=== PATIENT | female | born 1965 | race Caucasian/White ===

== ENCOUNTER 2021-03-22 14:18 | Outpatient (NON) | payer OTHER, SELFPAY ==
[2021-03-22 14:34] LABS: Add Urine Microscopic? YES; Appearance Urine Cloudy (Clear); Bilirubin Urine Negative (Negative); Blood Urine 1+ (Negative); Color Urine Light Yellow (Yellow); Glucose Urine UA Negative (Negative); Ketones Urine Trace (Negative); Leukocyte Esterase Ur 2+ LEU/UL (Negative); Nitrate Urine Negative (Negative); Protein Urine 1+ (Negative); Specific Grav Ur >= 1.030 (1.010-1.020); Urobilinogen Urine 0.2 mg/dL (0.2-1.0); pH Urine 5.5 (5.0-8.0)
[2021-03-22 14:37] LABS: Bacteria Urine 1+ /hpf; RBC Urine None seen /hpf (0-2); Renal Epithelial Cells Urine Few /hpf; Squamous Epithelial Cell Urine Few /hpf (Few); WBC Urine >75 /hpf (0-3)
== END 2021-03-22 14:19 | disposition home or self-care (01) ==
LOC: CHSHH 14:22
PROVIDERS: Visit Provider Internal Medicine
DX: G91.2 (Idiopathic) normal pressure hydrocephalus (principal); E11.9 Type 2 diabetes mellitus without complications; I82.412 Acute embolism and thrombosis of left femoral vein; G40.909 Epilepsy, unspecified, not intractable, without status epilepticus; R82.90 Unspecified abnormal findings in urine
CPT/HCPCS: 81001; 87086

== ENCOUNTER 2021-03-27 13:03 | Outpatient (NON) | payer OTHER, SELFPAY | END 2021-03-27 13:04 | disposition home or self-care (01) | PROVIDERS: Visit Provider Internal Medicine | DX: G91.2 (Idiopathic) normal pressure hydrocephalus (principal); E11.9 Type 2 diabetes mellitus without complications; I82.412 Acute embolism and thrombosis of left femoral vein; G40.909 Epilepsy, unspecified, not intractable, without status epilepticus | CPT/HCPCS: 87077; 87086; 87088; 87186 ==

== ENCOUNTER 2022-05-07 21:36 | Emergency (ER) | payer OTHER, SELFPAY ==
--- NOTE | ~2022-05-07 | CT_ITS ---
EXAMINATION: CT abdomen pelvis wo con DATE: 05/07/2022 23:36 INDICATION: Bladder fistula. Dysuria. TECHNIQUE: Computed tomography (CT) of the abdomen and pelvis was performed without intravenous contr ast. Automated exposure control and iterative reconstruction technique were employed. The dose-length product was 1629.90 mGy-cm. COMPARISON: None. FINDINGS: The visualized portions of the lung bases demonstrate mild atelectasis. No pleural effusion . There is left atrial and left ventricular enlargement of the heart. No pericardial effusion. There is diffuse hepatic steatosis. There are changes of cholecystectomy. The spleen, pancreas, and adrenal glands are normal. The kidneys are normal. There is a filter in the infrarenal inferior vena cava. T here is gas in the bladder lumen. Bladder wall thickening is noted. There are no dilated loops of bow el. The appendix is normal. There is mild bilateral common iliac and right external iliac lymphadenop athy. For example, a right external iliac node measures 19 x 12 mm. There is no free intraperitoneal fluid. There is severe lumbar spondylosis. There is a hemangioma in T3 vertebral body. IMPRESSION: 1. Bladder wall thickening, consistent with cystitis. 2. Gas in the bladder lumen, which may be secondary to recent instrumentation. No fistula identified. 3. Mild pelvic lymphadenopathy, likely reactive. Reviewed, dictated and finalized at location A.
[2022-05-07 21:22] VITALS: BP 167/81; PULSE 87; RESP 16; TEMP 36.8; O2SAT 97
--- NOTE | 2022-05-07 22:56 | ED.GENADULT ---
HPI - General Adult General Chief complaint: Urogenital-Female Stated complaint: UTI s/s History of Present Illness HPI narrative: A 57-year-old female who is bed-bound due to history of hydrocephalus presenting to ED with urinary complaints. Patient says for the last week she has had dysuria, hematuria, and bubbles in her urine. She has also had fevers and body aches. Patient has a history of recurrent UTIs. Denies chest pain difficulty breathing, nausea vomiting or diarrhea. Patient typically uses a diaper. Related Data Allergies Allergy/AdvReac Type Severity Reaction Status Date / Time No Known Allergies Allergy Verified 05/07/22 22:06 Review of Systems Review of Systems: CONSTITUTIONAL: Denies night sweats. EYES: No eye pain ENT: Denies rhinorrhea CARDIOVASCULAR: Denies palpitations RESPIRATORY: Denies hemoptysis GASTROINTESTINAL: Denies hematemesis GENITOURINARY: Denies hematuria. SKIN: Denies rash MUSCULOSKELETAL: Denies myalgia. NEUROLOGIC: Denies weakness. 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 Patient appears far older than her stated age Head atraumatic. EYES: R eye enucleation NOSE: Normal no drainage NECK: Supple, Trachea midline RESPIRATORY: CTAB, No increased work of breathing. CARDIOVASCULAR: S1S2 appreciated ABDOMINAL: abdomen is obese, nontender with no guarding or rebound MUSCULOSKELETAl: No obvious deformities NEURO: Alert. Moving 4/4 extremities SKIN:: is warm dry and pale. She has multiple uninfected cat scratches over her lower extremities. PSYCHIATRIC: Normal affect Course Vital Signs Vital signs: Vital Signs Temperature 98.2 F 05/07/22 21: Pulse Rate 87 05/07/22 21:22 Respiratory Rate 16 05/07/22 21:22 Blood Pressure 167/81 H 05/07/22 21:22 Pulse Oximetry 97 05/07/22 21:22 Oxygen Delivery Room Air 05/07/22 21:22 Temperature 98.2 F 05/07/22 21:22 Pulse Rate 87 05/07/22 21:22 Respiratory Rate 16 05/07/22 21:22 Blood Pressure 167/81 H 05/07/22 21:22 Pulse Oximetry 97 05/07/22 21:22 Oxygen Delivery Room Air 05/07/22 21:22 Medical Decision Making MDM Narrative Medical decision making narrative: 57-year-old bed-bound woman presenting ED with urinary symptoms. CT abdomen pelvis was ordered to evaluate for a vesicular fistula she has reports having air bubbles in her urine. CT showed thickening of her bladder but no evidence of fistula. Urinalysis was indicative of UTI. Rest the patient's lab work was within acceptable limits. Patient has excellent support at home from her who takes care of her multimedia assistant. They are comfortable going home with antibiotics and returning if her condition is worsening. Patient will be discharged with Keflex and PCP follow up. Vital Signs Vital Signs: Vital Signs Temperature 98.2 F 05/07/22 21:22 Pulse Rate 87 05/07/22 21:22 Respiratory Rate 16 05/07/22 21:22 Blood Pressure 167/81 H 05/07/22 21:22 Pulse Oximetry 97 05/07/22 21:22 Oxygen Delivery Room Air 05/07/22 21:22 Temperature 98.2 F 05/07/22 21:22 Pulse Rate 87 05/07/22 21:22 Respiratory Rate 16 05/07/22 21:22 Blood Pressure 167/81 H 05/07/22 21:22 Pulse Oximetry 97 05/07/22 21:22 Oxygen Delivery Room Air 05/07/22 21:22 Lab Data Result diagrams: 05/07/22 23:42 05/07/22 23:42 Labs: Lab Results 05/07/22 05/07/22 05/07/22 Range/Units 23:23 23:42 23:42 WBC 6.8 (4.5-10.0) K/mm3 RBC 4.59 (4.2-5.4) M/mm3 Hgb 12.1 (12.0-15.0) g/dL Hct 38.7 (37.0-47.0) % MCV 84.3 (80-100) fl
[2022-05-07 23:26] LABS: Glucose Point of Care 342 mg/dl (65-105)
[2022-05-08 00:24] LABS: Basophils Absolute Auto 0.1 K/mm3 (0.0-0.1); Eosinophils Absolute Auto 0.7 K/mm3 (0-0.3); Eosinophils Percent Auto 9.6 % (0-4.4); Hematocrit 38.7 % (37.0-47.0); Hemoglobin 12.1 g/dL (12.0-15.0); Immature Granulocyte Absolute 0.04 K/mm3 (0.00-0.031); Immature Granulocyte Percent A 0.6 % (0-0.5); Lymphocytes Absolute Auto 2.07 K/mm3 (0.9-3.2); Lymphocytes Percent Auto 30.6 % (18.3-44.2); Mean Corpuscular HGB Conc 31.3 g/dl (32-36); Mean Corpuscular Hemoglobin 26.4 pg (26-34); Mean Corpuscular Volume 84.3 fl (80-100); Mean Platelet Volume 10.4 fl (7.4-10.4); Monocytes Absolute Auto 0.8 K/mm3 (0.1-0.6); Monocytes Percent Auto 11.1 % (2.6-8.5); Neutrophils Absolute Auto 3.2 K/mm3 (1.3-6.7); Neutrophils Percent Auto 47.1 % (45.5-73.1); Platelet Count Result 289 k/mm3 (150-375); Red Blood Count 4.59 M/mm3 (4.2-5.4); Red Cell Distribution Width 14.8 % (11.5-14.5); White Blood Count 6.8 K/mm3 (4.5-10.0)
[2022-05-08 00:27] LABS: Lactic Acid Reflex 2.1 mmol/L (0.7-2.0)
[2022-05-08 00:28] LABS: Anion Gap 9 mmol/L (8-16); Blood Urea Nitrogen 22 mg/dL (7-17); Calcium 9.8 mg/dL (8.4-10.2); Carbon Dioxide 28 mmol/L (22-30); Chloride 97 mmol/L (98-107); Estimated CRCL calculation 95 ml/min; Estimated Glomerular Filt Rate > 60; Glucose 348 mg/dL (65-110); Potassium 4.9 mmol/L (3.4-5.0); Sodium 134 mmol/L (137-145)
[2022-05-08 00:53] LABS: Appearance Urine Clear (Clear); Bilirubin Urine Negative (Negative); Blood Urine 2+ (Negative); Color Urine Yellow (Yellow); Glucose Urine UA 3+ mg/dL (Negative); Ketones Urine Negative (Negative); Leukocyte Esterase Ur 1+ LEU/UL (Negative); Nitrate Urine Positive (Negative); Protein Urine 2+ mg/dL (Negative); Urobilinogen Urine 0.2 mg/dL (<2.0)
[2022-05-08 00:58] LABS: Squamous Epithelial Cell Urine Rare /hpf (Few); WBC Urine 31-50 /hpf
[2022-05-08 01:04] LABS: Add Urine Microscopic? YES
[2022-05-08] MEDS: CEPHALEXIN 500 MG CAPSULE PO (01:53)
[2022-05-08] MEDS: SODIUM CHLORIDE 0.9% IV 1,000 ML 999 ML IV CONT (02:00)
[2022-05-08 02:33] VITALS: BP 164/80; PULSE 84; RESP 16; O2SAT 97
[2022-05-08 03:16] LABS: Reflex Lactic Acid Yes or No Add Lactic
== END 2022-05-08 02:33 | disposition home or self-care (01) ==
PROVIDERS: Emergency Provider Emergency Medicine; PCP Internal Medicine
DX: N39.0 Urinary tract infection, site not specified (principal); G91.9 Hydrocephalus, unspecified; G40.909 Epilepsy, unspecified, not intractable, without status epilepticus; E11.9 Type 2 diabetes mellitus without complications; Z98.2 Presence of cerebrospinal fluid drainage device
CPT/HCPCS: 36415; 51701; 74176; 80048; 81001; 82948; 83605; 85025; 87077; 87086; 87088; 87186; 96360; 99284; A9270; J7030

== ENCOUNTER 2025-05-31 15:19 | Outpatient (NON) | payer OTHER, SELFPAY ==
[2025-05-31 15:27] LABS: Hematocrit 34.7 % (35.0-49.0); Hemoglobin 10.6 g/dL (12.0-15.0); Mean Corpuscular HGB Conc 30.5 g/dL (32-36); Mean Corpuscular Hemoglobin 28.7 pg (27.0-31.0); Mean Corpuscular Volume 94.0 fL (78.0-102.0); Platelet Count Result 347 K/mm3 (150-420); Red Blood Count 3.69 M/mm3 (4.20-5.40); White Blood Count 9.3 K/mm3 (4.8-10.8)
[2025-05-31 15:36] LABS: Hemoglobin A1C 8.0 % (<5.7)
[2025-05-31 15:55] LABS: Appearance Urine Cloudy (Clear); Glucose Urine UA Negative (Negative); Nitrate Urine Positive (Negative); Specific Grav Ur 1.005 (1.010-1.020)
[2025-05-31 15:56] LABS: Add Urine Microscopic? YES; Leukocyte Esterase Ur 3+ (Negative)
--- OUTSIDE RECORDS SUMMARY | 2025-05-31 16:03 | XMS_ITS | Encounter Summary ---
Author Organization [facility] Address [address] [place] [address] Care Team Providers Care Email Marketing Coordinator Name Role Phone Kulwinder Jackson MD Primary Care Provider [phone] Encounter Details Date Type Department Care Team (Late st Contact Info) Description 02/14/2025 Telephone [facility] - Urology [address] [place] [address], [facility] [place] [address] Lindsey Amaro DO [address] [place] [address] [place] [address] Social History Tobacco Use Types Packs/Day Years Used Date Smoking Tobacco: Former Smokeless Tobacco: Never Alcohol Use Standard Drinks/Week Comments No 0 (1 standard drink = 0.6 oz pur e alcohol) Comments Unknown Sex and Gender Information Value Date Recorded Sex Assigned at Not on file Legal Sex Female 5:33 PM WEAVER NEEDLE LOOM Gender Identity Not on file Sexual Orientation Not on file documented as of this encounter Miscellaneous Notes * Telephone Encounter - Joyce Harrington RN - 02/14/2025 3:01 PM CDT Called back. No answer. This patient was never seen by [facility] Urology. * Telephone Encounter - Rena Pittman - 02/14/2025 2:44 PM CDT Current Provider: Dr Amaro Reason for Call: Pt called said pt needs a cath change been in since 01/26, please advise. Patient Call Back Number: [phone] documented in this encounter Plan of Treatment Upcoming Encounters Date Type Department Care Team (Late st Contact Info) Description 06/14/2025 9:00 AM CDT Office Visit [facility] - Urology [address] [facility], [place] [address] Lindsey Amaro M, [address] [facility] [address]L [place] [phone] documented as of this encounter Visit Diagnoses Not on filedocumented in this encounter Care Teams Email Marketing Coordinator Relationship Specialty Start Date End Date Kulwinder Jackson MD [address] [place] [address] PCP - General 10/21/17 documented as of this encounter
--- OUTSIDE RECORDS SUMMARY | 2025-05-31 16:03 | XMS_ITS | Encounter Summary ---
Author Organization [facility] Address [address] [place] [address] Phone Care Team Providers Care Mixing Machine Attendant Name Role Phone Kulwinder Soto MD Primary Care Provider [phone] Encounter Details Date Type Department Care Team (Late st Contact Info) Description 02/15/2024 Nursing Facility [facility] [address] [place] [phone] Andrea Mai PAC [address] [place], [place] [id number] Social History Tobacco Use Types Packs/Day Years Used Date Smoking Tobacco: Former Smokeless Tobacco: Never Alcohol Use Standard Drinks/Week Comments No 0 (1 standard drink = 0.6 oz pur e alcohol) Comments No Sex and Gender Information Value Date Recorded Sex Assigned at Not on file Legal Sex Female 12:03 AM CDT Gender Identity Not on file Sexual Orientation Not on file documented as of this encounter Progress Notes * Andrea Mai PAC - 02/15/2024 2:57 PM CDT [facility] DISCHARGE SUMMARY Name: Opal Gardiner Age: 58 y.o. : 1965 Attending Physician: No att. providers found Admission Date/Time: 01/20/2024 Expected Discharge Date: 02/16/2024 Primary Care Physician: KULWINDER SOTO MD Discharging Provider: HI Carver INSTRUCTIONS FOR PHYSICIANS ON FOLLOW UP AFTER DISCHARGE: Follow-up with PCP in 1-2 weeks. Due to insurance reasons her Eliquis had to be switched to warfarin, INR level is therapeutic today, will need to be monitored closely. Keep follow-up appointment with Neuro on February 17. Discharge Instructions: Discharge Condition: not changed Disposition: Home Diet: Cardiac Diet and Diabetic Diet Activity: activity as tolerated Discharge Diagnoses: Generalized weakness and deconditioning, history of normal pressure hydrocephalus, paroxysmal atrial fibrillation, insulin-dependent diabetes mellitus, hypertension, hyperlipidemia, depression, anxiety, seizure disorder, GERD, peripheral neuropathy Admitting Diagnoses: Generalized weakness and deconditioning, history of normal pressure hydrocephalus, paroxysmal atrial fibrillation, insulin-dependent diabetes mellitus, hypertension, hyperlipidemia, depression, anxiety, seizure disorder, GERD, peripheral neuropathy SKILLED CARE COURSE: [facility]al Gardiner [facility]. Prior to coming to rehabilitation facility patient was hospitalized at [facility] from 01/14/2024 through 01/20/2024 due to a gradual overall declining that have been going on for several monthsand concerns for VAS malfunction. She came to the rehabilitation facility for long-term care rather than skilled care. The isher primary care your and felt that she was too high of the level of care for him at home. Now he feels like he can provide enough care for home and wants to take her home tomorrow. Patient is lying comfortably in bed at this time. She denies any acute symptoms or concerns. Her stay in the facility was relatively short and mostly uncomplicated. Due to insurance reasons her Eliquis had to be switched to warfarin, INR is therapeutic and was checked this morning. Patient and understand that the INR level will need to be monitored closely by her PCP as her currentwarfarin dose may need to be adjusted, especially considering the fact that her diet will likely bedifferent when she gets home. Exam Day of Discharge: Vital Signs: Recent vital signs were reviewed in the electronic medical records at nursing facility and are unremarkable. General: Well developed, well nourished, in no distress, obese Skin: Normal appearance, normal turgor, no rashes HEENT: Normocephalic, atraumatic, no flaring Eyes: Right eye prosthesis. Left eye: nonicteric, intact extra occular movement, pupil is round andreactive Neck: normal, supple, no lymphadenopathy Heart: regular rate and rhythm, S1, S2 normal, no murmur, click, rub or gallop Lungs: clear to ausculation, normal respirations with no accessory muscle use, normal rate Abdominal: soft, non-tender; bowel sounds normal; no masses, no organomegaly Extremities: no deformities, joint mobility appears intact, no clubbing Neuro: Non-focal, CN intact, sensory and motor intact Psychological: alert and oriented X1, appropriate mood and affect, Intact judgement and memory Lab / Imaging Review: Lab Results: 01/18/2024 while in the hospital, CMP with glucose 261, calcium 11.0, albumin 3.1, alk-phos 132. CBC with hemoglobin 11.5 otherwise unremarkable. 02/15/2024: INR at 2.1 Imaging: None DISCHARGE PLAN: Patient will be going home tomorrow, she lives with her who is her caregiver. No new DME isneeded and they politely declined home health. Understands to continue all current medications as directed and follow up with PCP in 1-2 weeks. She is to keep her follow-up appointment with neuro surgery without fail. I have spent time coordinating care for this [facility] facility discharge: Greater than 30 minutes spent in coordinating care This note was dictated using [employer] It fluency dictation system and there may be errors in labor conciliator. Despite proof reading the note, there may be mistakes and I apologize for those. Signed: HI Carver, 02/15/2024, 2:59 PM CDT documented in this encounter Plan of Treatment Not on file documented as of this encounter Visit Diagnoses Not on filedocumented in this encounter Care Teams Mixing Machine Attendant Relationship Specialty Start Date End Date Kulwinder Soto MD [address] [place] [place] [id number] PCP - General Internal Medicine 1/28/18 documented as of this encounter
--- OUTSIDE RECORDS SUMMARY | 2025-05-31 16:03 | XMS_ITS | Encounter Summary ---
Author Organization [facility] Address [address] [facility] [place] [address] Phone Care Team Providers Care Robotic Machine Operator Name Role Phone Kulwinder Soto MD Primary Care Provider [phone] Encounter Details Date Type Department Care Team (Late st Contact Info) Description 01/22/[address] [facility] [address] [place] [phone] Kassidy Mackey MD [address] [place] [address] Social History Tobacco Use Types Packs/Day Years [...] on file documented as of this encounter H&P Notes * Matheus Treadwell - 01/22/2024 11:59 PM CDT .[facility] History and Physical Chief Complaint: worsening generalized weakness and declining cognition HPI: Opal Gardiner is a 58 y.o. female who has transferred to [facility] for post-acute care and rehabilitation. Prior to coming to rehabilitation facility patient was hospitalized at [facility] from 01/14/2024 through 01/20/2024 due to a gradual overall declining that have been going on for several months and concerns for VAS malfunction. She has a past medical history of NPH s/p R ventriculoatrial shunt placement (Paulo, 01/2021, Certas @7), longstanding history of epilepsy, T2DM, morbid obesity, and chronic anemia. The patient has been wheelchair bound since shunt placementin 2020. Pt's reached out to Dr. Bates's office in October 2023 due to declining cognitive and functional status and review of her head CT had low concern for shunt malfunction at that time. Shortly after, the patient's noticed worsening symptoms and new urinary incontinence and brought her to the hospital as he felt he could not continue providing her care at home. Head CT at hospital showed shunt was stable and did not have any new significant findings. Shunt pumped multiple times during hospitalization and settings adjusted. At the time of this assessment, the patient did not have any complaints. History obtained from: patient, medical records. Patient has cognitive impairment which limits HPI Review of External Records: [facility] records Allergies: has No Known Allergies. Past Medical History: She has a past medical history of Depression, Diabetes mellitus (HCC), Epilepsy (HCC), Hypertension, and TIA (transient ischemic attack). Surgical History: has a past surgical history that includes Dilation And Curettage of Uterus; Cholecystectomy, Laparoscopic; and Eye Surgery. Social History: reports that she has quit smoking. She has never used smokeless tobacco. She reports that she does not drink alcohol and does not use drugs. Physical Exam: Vital Signs: All vitals were reviewed in the facility EMR and are stable. Exam: General: Well developed, well nourished, in no distress, morbidly obese Skin: Normal appearance, normal turgor, no rashes, onychomycosis of both greater toes, psoriasis ofscalp HEENT: Normocephalic, atraumatic, no flaring Eyes: nonicteric, intact extra ocular movement, PERRL Neck: normal, supple, no lymphadenopathy Heart: regular rate and rhythm, S1, S2 normal, no murmur, click, rub or gallop Lungs: clear to auscultation, normal respirations, normal precautions Abdominal: soft, non-tender; bowel sounds normal; no masses, no organomegaly : external genitalia normal in appearance Extremities: no deformities, joint mobility appears intact, no clubbing Neuro: Non-focal, CN intact, sensory and motor intact, cogwheel rigidity in BLE, right-sided weakness, LUE tremors Psychological: alert and oriented X2, appropriate mood and affect, Intact judgement and memory Data Review: Lab Results: 01/18/2024 while in the hospital, CMP with glucose 261, calcium 11.0, albumin 3.1, alk-phos 132. CBC with hemoglobin 11.5 otherwise unremarkable. Imaging: No new imaging. Orders: - Referred to neurology for suspected Parkinson's disease evaluation Assessment/Plan: Generalized weakness and deconditioning Has been wheelchair-bound since 2020 Receiving long term care and physical therapy rehabilitation History of normal pressure hydrocephalus VAS Shunt in place Recently changed settings during hospitalization, has follow-up with neuro surgery in February Suspected Parkinson's disease Tremors and cogwheel rigidity noted during physical exam Neurology referral being arranged by SNF Paroxysmal atrial fibrillation Anticoagulated with Eliquis Rate control with Coreg Currently in normal sinus rhythm Insulin-dependent diabetes mellitus Continue basal and bolus insulin therapy Monitor Accu-Cheks Hypertension Continue her furosemide, carvedilol Monitor blood pressures Stable VTE Prophylaxis: Patient is on oral anticoagulation with Eliquis. Fall Care Plan Review: Patient has been educated on fall precautions and will be closely monitored. Pressure Ulcer Prevention Plan: Mobilization. Disposition and escalation or reduction of care: The patient is to receive post- acute care and complete PT and OT at the SNF to improve strength, balance, and mobility back to baseline with the goal of discharging to home where she lives with her . Advance Care Planning: Aggregate [id number] time, greater than 16 minutes was spent discussing end-of-life care planning with patient/family and/or Power of Special Education Superintendent. Discussed CPR, Intubation, treatment goals, and Quality of life/Intensity of care. Patient desires CPR-Full Treatment Polst Form Completed. I, Matheus Treadwell, acting as a scribe, am personally taking down the notes in the presence of Dr. Kassidy Mackey M.D. Take no action on this note until reviewed and authenticated by the physician. By: MATHEUS TREADWELL, 01/22/2024 Primary Care Physician: KULWINDER SOTO MD I evaluated and examined the patient in presence of scribe MATHEUS HAYNESEED and reviewed the medical records and the notes above and agree with the content and details of the notes. By: Kassidy Mackey M.D. Cosigned by Kassidy Mackey MD at 03/06/2024 4:54 PM CDT documented in this encounter Plan of Treatment Not on file documented as of this encounter Visit Diagnoses Not on filedocumented in this encounter Care Teams Robotic Machine Operator Relationship Specialty Start Date End Date Kulwinder Soto MD [address] [place] [address] PCP - General Internal Medicine 10/11/17 documented as of this encounter
--- OUTSIDE RECORDS SUMMARY | 2025-05-31 16:03 | XMS_ITS | Encounter Summary ---
Author Organization [facility] Address [address] [facility] [place] [address] Phone Care Team Providers Care Telephone Sex Worker Name Role Phone Kulwinder Jackson MD Primary Care Provider [phone] Encounter Details Date Type Department Care Team (Late Contact Info) Description 01/15/2022 Nursing Facility [facility] [address] [place] [phone] Andrea Mai, [place] [address] [place] [address] [phone] Social History Tobacco Use Types Packs/Day Years [...] of this encounter Progress Notes * Andrea Mai, HI - 01/15/2022 4:43 PM CDT [facility] PROGRESS NOTE Opal Gardiner is a 56 y.o. female at [facility] Nursing [facility] rehabilitation. Review of medical records show the patient was admitted to the facility from home due to decreased mobility or half-way and physical therapy rehabilitation. The patient tells me that she was falling frequently until she was found to have a hydrocephalus and had a shunt placed about a year ago. Now she says she is not following much but has had generalized weakness and impaired mobility since late 2019. Subjective: Interval History: Patient tells me that she is feeling okay. Denies any acute concerns. She is hopeful to regain her strength and ambulation and go back home with her . She does admit to being very weak and deconditioned and is unable to transition on her own. She arrived to the facility last night. Staff notified me last night of diarrhea and requested a stool culture for C diff which has been obtained. The patient however says that she has had diarrhea for about 6 months now. Says that she has about 3-5 bowel movements a day on average. And she denies any recent antibiotic use that she knows of. is here at bedside. He has brought in her home medication as which is helpful as the medication list that was sent in from PCPs office has some outdated medicines on it. is her primary caregiver. Past Medical History Positives Diagnosis Date ??? Depression ??? Diabetes mellitus (HCC) ??? Epilepsy (HCC) ??? Hypertension ??? TIA (transient ischemic attack) Family history: Father is , history of leukemia, mi, CAD. Mother is . History of [place] and CAD. Social History Socioeconomic History ??? Marital status: Spouse name: Not on file ??? Number of children: Not on file ??? Years of education: Not on file ??? Highest education level: Not on file Occupational History ??? Not on file Tobacco Use ??? Smoking status: Former Smoker ??? Smokeless tobacco: Never Used Substance and Sexual Activity ??? Alcohol use: No ??? Drug use: No ??? Sexual activity: Not on file Other Topics Concern ??? Not on file Social History Narrative ??? Not on file Past Surgical History: Procedure Laterality Date ??? CHOLECYSTECTOMY, LAPAROSCOPIC ??? DILATION AND CURETTAGE OF UTERUS ??? EYE SURGERY Review of Systems: A 14 point comprehensive review of systems was negative except what is documented in interval history above. Objective: Exam: Vital Signs: B/P: 142/78 Pulse: 84 Respirations: 18 Temperature: 97.5 General: Well developed, well nourished, in no distress Skin: Normal appearance, normal turgor, no rashes HEENT: Normocephalic, atraumatic, no flaring Eyes: Right eye prosthesis. Left eye: nonicteric, intact extra occular movement, pupil is round andreactive Neck: normal, supple, no lymphadenopathy Heart: regular rate and rhythm, S1, S2 normal, no murmur, click, rub or gallop Lungs: clear to ausculation, normal respirations, normal precautions Abdominal: soft, non-tender; bowel sounds normal; no masses, no organomegaly Extremities: no deformities, joint mobility appears intact, no clubbing Neuro: Non-focal, CN intact, sensory and motor intact Psychological: alert and oriented X3, appropriate mood and affect, Intact judgement and memory Lab Results: None Imaging: None Assessment/Plan: Generalized weakness and deconditioning Patient is admitted for physical therapy and half-way care. She hopes to be able to go back home and live with her once she regains her strength and mobility. History of hydrocephalus status post shunt placement Followed by neurosurgery Dr. Bates at [facility] Continue Depakote Diabetes mellitus type 2 Continue home metformin and Lantus Monitor Accu-Cheks Check an A1c and baseline labs Diarrhea / - C diff came back negative. This is felt to be functional. P.r.n. Imodium ordered. Encouraged oral hydration. Peripheral neuropathy Continue Lyrica Stable Hyperlipidemia Continue Lipitor GERD Continue Protonix Morbid obesity Discussed weight loss strategies and encouraged to lose weight VTE Prophylaxis: Activity I discussed advanced care planning with this patient. Advance Care Planning: Aggregate [id number] time, greater than 16 minutes was spent discussing end-of-life care planning with patient/family and/or Power of Dish Network Installer. Discussed CPR, Intubation, treatment goals, and Quality of life/Intensity of care. Patient desires CPR-Full Treatment By: HI Carver, 01/15/2022 4:44 PM CDT documented in this encounter Plan of Treatment Not on file documented as of this encounter Visit Diagnoses Not on filedocumented in this encounter Care Teams Telephone Sex Worker Relationship Specialty Start Date End Date Kulwinder Jackson MD [address] [place] [address] PCP - General Internal Medicine 10/11/17 documented as of this encounter
--- OUTSIDE RECORDS SUMMARY | 2025-05-31 16:03 | XMS_ITS | Encounter Summary ---
Author Organization [facility] Address [address] [facility] [place] [address] Phone Care Team Providers Care Observation Nurse Name Role Phone Kulwinder Jackson MD Primary Care Provider Encounter Details Date Type Department Care Team (Late Contact Info) Description 01/23/2022 Nursing Facility [facility] [address] [place] [phone] Andrea Mai, [place] [address] [place] [address] [phone] Social History Tobacco Use Types Packs/Day Years [...] Progress Notes * Andrea Mai, HI - 01/23/2022 2:27 PM CDT [facility] PROGRESS NOTE Opal Gardiner is a 56 y.o. female at [facility] Nursing [facility] for rehabilitation. Review of medical records show the patient was admitted to the facility from home due to decreased mobility or usp and physical therapy rehabilitation. The patient tells me that she was falling frequently until she was found to have a hydrocephalus and had a shunt placed about a year ago. Now she says she is not following much but has had generalized weakness and impaired mobility since late 2019. Subjective: Interval History: Patient says she is feeling better. On 01/21 her IBS symptoms No other acute concerns. Tells me her diarrhea has not been present last few days, only 1 bowel movement area did no known history of IBS. Past Medical History Positives Diagnosis Date ??? Depression ??? Diabetes mellitus (HCC) ??? Epilepsy (HCC) ??? Hypertension ??? TIA (transient ischemic attack) Family history: Father is , history of leukemia, mi, CAD. Mother is . History of [place] and CAD. Social History Socioeconomic History ??? [...] Objective: Exam: Vital Signs: B/P: 142/78 Pulse: 80 Respirations: 16 Temperature: 96.9 General: Well developed, well nourished, in no [...] affect, Intact judgement and memory Lab Results: 01/16/2022: CMP unremarkable. CBC with hemoglobin 10.5 otherwise unremarkable. A1c of 9.3. Imaging: None Assessment/Plan: Generalized weakness and deconditioning Patient is admitted for physical therapy and usp care. She hopes to be able to go back home and live with her once she regains her strength and mobility. History of hydrocephalus status post shunt placement Followed by neurosurgery Dr. Bates at [facility] Continue Depakote Diabetes mellitus type 2 Continue home metformin and Lantus Monitor Accu-Cheks 01/20 - A1c of 9.3, so not well controlled at baseline. Blood sugars reasonable as of late. Continue current regimen. Diarrhea 01/15 - C diff came back negative. This is felt to be functional. P.r.n. Imodium ordered. Encouraged oral hydration. 01/20 - much improved. If this becomes an issue in the future then consider IBS 01/23 - Started bentyl a few days ago. She is doing well with this Peripheral neuropathy Continue Lyrica Stable Hyperlipidemia Continue Lipitor GERD Continue Protonix Morbid obesity Discussed weight loss strategies and encouraged to lose weight VTE Prophylaxis: Activity I discussed advanced care planning with this patient. Disposition: She is hopeful to regain her strength and ambulation and go back home with her . She does admit to being very weak and deconditioned and is unable to transition on her own. By: HI Carver, 01/23/2022 2:27 PM CDT documented in this encounter Plan of Treatment Not on file documented as of this encounter Visit Diagnoses Not on filedocumented in this encounter Care Teams Observation Nurse Relationship Specialty Start Date End Date Kulwinder Jackson MD [address] [place] [address] PCP - General Internal Medicine 10/11/17 documented as of this encounter
--- OUTSIDE RECORDS SUMMARY | 2025-05-31 16:03 | XMS_ITS | Encounter Summary ---
Author Organization [facility] Address [address] [place] [address] Phone Care Team Providers Care Experimental Mechanic Name Role Phone Kulwinder Jackson MD Primary Care Provider [phone] Encounter Details Date Type Department Care Team (Late st Contact Info) Description 06/13/2024 Nursing Facility [facility] [address] [place] [phone] Andrea Mai, [place] [address] [place] [address] [phone] Other chronic pain Social History Tobacco Use Types Packs/Day Years [...] Progress Notes * Andrea Mai, HI - 06/13/2024 11:09 AM CDT [facility] PROGRESS NOTE Opal Gardiner is a 59 y.o. female at [facility] for rehabilitation. Prior to coming to rehabilitation facility patient was hospitalized at [facility] from 01/14/2024 through 01/20/2024 due to a gradual overall declining that have been going on for several monthsand concerns for VAS malfunction. Subjective: Interval History: Seeing patient today for skilled visit. She is sitting up comfortably in her bed. She has no medical concerns at this time. Nursing staff with no concerns about the patient. Past Medical History Positives Diagnosis Date Depression Diabetes mellitus (HCC) Epilepsy (HCC) Hypertension TIA (transient ischemic attack) No family history on file. Social History Socioeconomic History Marital status: Spouse name: Not on file Number of children: Not on file Years of education: Not on file Highest education level: Not on file Occupational History Not on file Tobacco Use Smoking status: Former Smokeless tobacco: Never Substance and Sexual Activity Alcohol use: No Drug use: No Sexual activity: Not on file Other Topics Concern Not on file Social History Narrative Not on file Social Determinants of Health Financial Resource Needs: Low Risk (06/07/2024) Received from [facility] Overall Financial Resource Strain (CARDIA) Difficulty of Paying Living Expenses: Not very hard Food Insecurity Needs: No Food Insecurity (06/07/2024) Received from [facility] Hunger Vital Sign Worried About Running Out of Food in the Last Year: Never true Ran Out of Food in the Last Year: Never true Transportation Needs: No Transportation Needs (06/07/2024) Received from [facility] PRAPARE - Transportation Lack of Transportation (Medical): No Lack of Transportation (Non-Medical): No Physical Activity: Not on file Stress: Not on file Social Integration: Unknown (06/07/2024) Received from [facility] Social Connection and Isolation Panel [NHANES] Frequency of Communication with Friends and Family: More than three times a week Frequency of Social Gatherings with Friends and Family: More than three times a week Attends Scientology Services: Patient unable to answer Active Member of Clubs or Organizations: No Attends Club or Organization Meetings: Never Marital Status: Intimate Partner Violence: Not on file Housing Stability: Low Risk (06/07/2024) Received from [facility] Housing Stability Vital Sign Unable to Pay for Housing in the Last Year: No Number of Times Moved in the Last Year: 1 Homeless in the Last Year: No Past Surgical History: Procedure Laterality Date CHOLECYSTECTOMY, LAPAROSCOPIC DILATION AND CURETTAGE OF UTERUS EYE SURGERY Review of Systems: A 14 point comprehensive review of systems was negative except what is documented in interval history above. Objective: Exam: Vital Signs: Recent vital signs were reviewed in the electronic medical records at nursing facility and are unremarkable. General: Well developed, well nourished, in no distress, obese Skin: Normal appearance, normal turgor, no rashes HEENT: Normocephalic, atraumatic, no flaring - deformity on right side of head from shunt Eyes: Right eye prosthesis. Left eye: nonicteric, [...] affect, Intact judgement and memory Lab Results: 01/18/2024 while in the hospital, CMP with glucose 261, calcium 11.0, albumin 3.1, alk-phos 132. CBC with hemoglobin 11.5 otherwise unremarkable. 06/07/2024 while hospitalized, CMP with creatinine 1.2, BUN 48, albumin 2.9 otherwise unremarkable.CBC with hemoglobin 10.8 otherwise unremarkable. Imaging: None Assessment/Plan: Generalized weakness and deconditioning Has been wheelchair-bound since 2020 Receiving fdc care and physical therapy rehabilitation History of normal pressure hydrocephalus VAS Shunt in place Shunt adjusted during hospitalization Neuro surgery following Paroxysmal atrial fibrillation Anticoagulated with Eliquis Rate control with metoprolol 06/13/2024 well controlled Chronic systolic Congestive heart failure EF of 30-35% on recent echo Newly diagnosed Cardiology following Continue Farxiga, metoprolol, Entresto and urine furosemide 06/13/2024 well controlled Insulin-dependent diabetes mellitus Continue basal and bolus insulin therapy Monitor Accu-Cheks 06/13/2024 well controlled Hypertension Continue her current regimen Monitor blood pressures 06/13/2024 well controlled Other chronic medical conditions include hyperlipidemia, depression, anxiety, seizure disorder, GERD, peripheral neuropathy Stable Continue home regimen VTE Prophylaxis: Patient Already on Oral Anticoagulation I discussed advanced care planning with this patient. This note was dictated using M*[employer] fluency dictation system and there may be errors in laborer yard. Despite proof reading the note, there may be mistakes and I apologize for those. By: Andrea Mai, PAC, 06/13/2024 11:11 AM CDT documented in this encounter Plan of Treatment Not on file documented as of this encounter Visit Diagnoses Diagnosis Other chronic pain documented in this encounter Care Teams Experimental Mechanic Relationship Specialty Start Date End Date Kulwinder Jackson MD [address] [place], [place] [id number] PCP - General Internal Medicine 10/11/17 documented as of this encounter
--- OUTSIDE RECORDS SUMMARY | 2025-05-31 16:03 | XMS_ITS | Encounter Summary ---
Author Organization [facility] Address [address] [facility] [place] [address] Phone Care Team Providers Care Mileage Clerk Name Role Phone Kulwinder Jackson MD Primary Care Provider [phone] Encounter Details Date Type Department Care Team (Late st Contact Info) Description 06/09/2024 Nursing Facility [facility] [address] [place] [phone] Andrea Mai, [place] [address] [place] [phone] Other chronic pain (Primary Dx) Social History Tobacco Use Types Packs/Day Years [...] Progress Notes * Andrea Mai, HI - 06/09/2024 11:06 AM CDT [facility] PROGRESS NOTE Opal Gardiner is a 59 y.o. female at [facility] for rehabilitation. Prior to coming to rehabilitation facility patient was hospitalized at [facility] from 01/14/2024 through 01/20/2024 due to a gradual overall declining that have been going on for several monthsand concerns for VAS malfunction. Subjective: Interval History: Seeing patient today for skilled visit/initial encounter. Just admitted to the facility yesterday. She is sitting up comfortably in her [...] of Health Financial Resource Needs: Low Risk (11/04/2023) Received from [facility] Overall Financial Resource Strain (CARDIA) Difficulty of Paying Living Expenses: Not very hard Food Insecurity Needs: No Food Insecurity (11/04/2023) Received from [facility] Hunger Vital Sign Worried About Running Out of Food in the Last Year: Never true Ran Out of Food in the Last Year: Never true Transportation Needs: No Transportation Needs (11/04/2023) Received from [facility] PRAPARE - Transportation Lack of Transportation (Medical): No Lack of Transportation (Non-Medical): No Physical Activity: Not on file Stress: Not on file Social Integration: Socially Isolated (11/04/2023) Received from [facility] Social Connection and Isolation Panel [NHANES] Frequency of Communication with Friends and Family: Twice a week Frequency of Social Gatherings with Friends and Family: Never Attends Uatsdin Services: Never Active Member of Clubs or Organizations: No Attends Club or Organization Meetings: Never Marital Status: Intimate Partner Violence: Not on file Housing Stability: Low Risk (11/04/2023) Received from [facility] Housing Stability Vital Sign Unable to Pay for Housing in the Last Year: No Number of Places Lived in the Last Year: 1 In the last 12 months, was there a time when you did not have a steady place to sleep or slept in ashelter (including now)?: No Past Surgical History: Procedure Laterality Date [...] deconditioning Has been wheelchair-bound since 2020 Receiving correction care and physical therapy rehabilitation History of normal pressure hydrocephalus VAS Shunt in place Shunt adjusted during hospitalization Neuro surgery following Paroxysmal atrial fibrillation Anticoagulated with Eliquis Rate control with metoprolol 06/09/2024 well controlled Chronic systolic Congestive heart failure EF of 30-35% on recent echo Newly diagnosed Cardiology following Continue Farxiga, metoprolol, Entresto and urine furosemide 06/09/2024 O controlled Insulin-dependent diabetes mellitus Continue basal and bolus insulin therapy Monitor Accu-Cheks Hypertension Continue her current regimen Monitor blood pressures 06/09/2024 well controlled Other chronic medical conditions include hyperlipidemia, depression, anxiety, seizure disorder, GERD, peripheral neuropathy Stable Continue home regimen VTE Prophylaxis: Patient Already on Oral Anticoagulation I discussed advanced care planning with this patient. This note was dictated using M*Modal fluency dictation system and there may be errors in customs verifier. Despite proof reading the note, there may be mistakes and I apologize for those. By: HI Carver, 06/09/2024 11:07 AM CDT documented in this encounter Plan of Treatment Not on file documented as of this encounter Visit Diagnoses Diagnosis Other chronic pain- Primary documented in this encounter Care Teams Mileage Clerk Relationship Specialty Start Date End Date Kulwinder Jackson MD [address] [place], [place] [id number] PCP - General Internal Medicine 10/11/17 documented as of this encounter
--- OUTSIDE RECORDS SUMMARY | 2025-05-31 16:03 | XMS_ITS | Encounter Summary ---
Author Organization [facility] Address [address] [facility] [place] [address] Phone Care Team Providers Care Flight Instructor Name Role Phone Kulwinder Jackson MD Primary Care Provider [phone] Encounter Details Date Type Department Care Team (Late st Contact Info) Description 01/21/2024 Nursing Facility [facility] [address] [place] [phone] Andrea Mai, [place] [address] [place] [address] [phone] Other chronic pain (Primary Dx) Social History [...] Progress Notes * Andrea Mai PAC - 01/21/2024 11:59 AM CDT [facility] PROGRESS NOTE Opal Gardiner is a 58 y.o. female at [facility] for rehabilitation. Prior to coming to rehabilitation facility patient was hospitalized at [facility] from 01/14/2024 through 01/20/2024 due to a gradual overall declining that have been going on for several monthsand concerns for VAS malfunction. Subjective: Interval History: Seeing patient today for skilled visit/initial encounter. Just admitted to the facility yesterday. She is sitting up comfortably in her bed. at bedside and his feeding her her lunch currently. She has good appetite and no GI symptoms. She denies any acute concerns. She is a poor historian and has been helps provide history. Past Medical History Positives Diagnosis Date Depression [...] Social Determinants of Health Financial Resource Needs: Not on file Food Insecurity Needs: Not on file Transportation Needs: Not on file Physical Activity: Not on file Stress: Not on file Social Integration: Not on file Intimate Partner Violence: Not on file Housing Stability: Not on file Past Surgical History: Procedure Laterality Date CHOLECYSTECTOMY, [...] CBC with hemoglobin 11.5 otherwise unremarkable. Imaging: None Assessment/Plan: Generalized weakness and deconditioning Has been wheelchair-bound since 2020 Receiving alf care and physical therapy rehabilitation History of normal pressure hydrocephalus VAS Shunt in place Recently changed settings during hospitalization, has follow-up with neuro surgery in February Paroxysmal atrial fibrillation Anticoagulated with Eliquis Rate control with Coreg 01/21/2024 WELL CONTROLLED Insulin-dependent diabetes mellitus Continue basal and bolus insulin therapy Monitor Accu-Cheks Hypertension Continue her furosemide, carvedilol Monitor blood pressures 01/21/2024 well controlled Other chronic medical conditions include hyperlipidemia, depression, anxiety, seizure disorder, GERD, peripheral neuropathy Stable Continue home regimen VTE Prophylaxis: Patient Already on Oral Anticoagulation I discussed advanced care planning with this patient. This note was dictated using [employer] fluency dictation system and there may be errors in production recorder. Despite proof reading the note, there may be mistakes and I apologize for those. By: HI Carver, 01/21/2024 11:59 AM CDT documented in this encounter Plan of Treatment Not on file documented as of this encounter Visit Diagnoses Diagnosis Other chronic pain- Primary documented in this encounter Care Teams Flight Instructor Relationship Specialty Start Date End Date Kulwinder Jackson MD [address] [place] [address] PCP - General Internal Medicine 10/11/17 documented as of this encounter
--- OUTSIDE RECORDS SUMMARY | 2025-05-31 16:03 | XMS_ITS | Encounter Summary ---
Author Organization [facility] Address [address] [facility] [place] [address] Phone Care Team Providers Care Script Worker Name Role Phone Kulwinder Jackson MD Primary Care Provider [phone] Encounter Details Date Type Department Care Team (Late st Contact Info) Description 08/02/[address] [facility] [address] [place] [phone] Dong Grant, DIRECTOR PHARMACEUTICAL, SUPERVISOR OF GUIDANCE AND TESTING #[address] [place] [address] Social History Tobacco Use Types Packs/Day Years [...] on file documented as of this encounter Plan of Treatment Not on file documented as of this encounter Visit Diagnoses Not on filedocumented in this encounter Care Teams Script Worker Relationship Specialty Start Date End Date Kulwinder Jackson MD [address] [place] [address] PCP - General Internal Medicine 10/11/17 documented as of this encounter
--- OUTSIDE RECORDS SUMMARY | 2025-05-31 16:03 | XMS_ITS | Encounter Summary ---
Author Organization [facility] Address [address] [facility] [place] [address] Phone Care Team Providers Care Specification Manager Name Role Phone Kulwinder Jackson MD Primary Care Provider [phone] Encounter Details Date Type Department Care Team (Late st Contact Info) Description 06/20/2024 Nursing Facility [facility] [address] [place] [phone] Andrea Mai, [place] [address] [place] [address] [phone] Social History Tobacco Use Types Packs/Day Years [...] Progress Notes * Andrea Mai, [place] - 06/20/2024 2:24 PM CDT [facility] NURSING PROGRESS NOTE Opal Gardiner is a 59 y.o. female at [facility] for rehabilitation. Prior to coming to rehabilitation facility patient was hospitalized at [facility] from 01/14/2024 through 01/20/2024 due to a gradual overall declining that have been going on for several monthsand concerns for VAS malfunction. Subjective: Interval History: Seeing patient today for skilled visit. She is sitting up comfortably in her bed. Reports that she is constipated and believes it is been around 5 days since she had a bowel movement. No other GI issues. Nursing staff with no concerns about the [...] Low Risk (06/07/2024) Received from [facility] Overall Financial Resource Strain (CARDIA) Difficulty of Paying Living Expenses: Not very hard Food Insecurity Needs: No Food Insecurity (06/07/2024) Received from [facility] Hunger Vital Sign Worried About Running Out of Food in the Last Year: Never true Ran Out of Food in the Last Year: Never true Transportation Needs: No Transportation Needs (06/07/2024) Received from [facility] PRAPARE - Transportation Lack of Transportation (Medical): No Lack of Transportation (Non-Medical): No Physical Activity: Not on file Stress: Not on file Social Integration: Unknown (06/07/2024) Received from [facility] Social Connection and Isolation Panel [NHANES] Frequency of Communication with Friends and Family: More than three times a week Frequency of Social Gatherings with Friends and Family: More than three times a week Attends Jain Services: Patient unable to answer Active Member of Clubs or Organizations: No Attends Club or Organization Meetings: Never Marital Status: Intimate Partner Violence: Not on file Housing Stability: Low Risk (06/07/2024) Received from [facility] Housing Stability Vital Sign [...] deconditioning Has been wheelchair-bound since 2020 [facility]ceiving [facility] rehabilitation History of normal pressure hydrocephalus VAS Shunt in place Shunt adjusted during hospitalization Neuro surgery following Paroxysmal atrial fibrillation Anticoagulated with Eliquis Rate control with metoprolol 06/20/2024 well controlled Chronic systolic Congestive heart failure EF of 30-35% on recent echo Newly diagnosed Cardiology following Continue Farxiga, metoprolol, Entresto and furosemide 06/20/2024 well controlled Insulin-dependent diabetes mellitus Continue basal and bolus insulin therapy Monitor Accu-Cheks 06/20/2024 well controlled Hypertension Continue her current regimen Monitor blood pressures 06/20/2024 well controlled Chronic constipation Continue senna 06/20: Uncontrolled. Course- of MiraLax added on to regimen. Other chronic medical conditions include hyperlipidemia, depression, anxiety, seizure disorder, GERD, peripheral neuropathy Stable Continue home regimen VTE Prophylaxis: Patient Already on Oral Anticoagulation I discussed advanced care planning with this patient. This note was dictated using M*Modal fluency dictation system and there may be errors in aerospace medicine physician. Despite proof reading the note, there may be mistakes and I apologize for those. By: HI Carver, 06/20/2024 2:25 PM CDT documented in this encounter Plan of Treatment Not on file documented as of this encounter Visit Diagnoses Not on filedocumented in this encounter Care Teams Specification Manager Relationship Specialty Start Date End Date Kulwinder Jackson MD [address] [place] [address] PCP - General Internal Medicine 10/11/17 documented as of this encounter
--- OUTSIDE RECORDS SUMMARY | 2025-05-31 16:03 | XMS_ITS | Encounter Summary ---
Author Organization [facility] Address [address] [facility] [place] [address] Phone Care Team Providers Care Payable Representative Name Role Phone Kulwinder Jackson MD Primary Care Provider [phone] Encounter Details Date Type Department Care Team (Late Contact Info) Description 01/20/2022 Nursing Facility [facility] [address] [place] [phone] Andrea Mai, [place] [address] [place] [address] [phone] Social History Tobacco Use Types Packs/Day Years [...] Progress Notes * Andrea Mai, [place] - 01/20/2022 1:17 PM CDT [facility] PRO[facility] Opal Gardiner is a 56 y.o. female at [facility]. Review of medical records show the patient was admitted to the facility from home due to decreased mobility or retirement and physical therapy rehabilitation. The patient tells me that she was falling frequently until she was found to have a hydrocephalus and had a shunt placed about a year ago. Now she says she is not following much but has had generalized weakness and impaired mobility since late 2019. Subjective: Interval History: Patient says she is feeling better. Says a mattress uncomfortable which is affecting her sleep. No other acute concerns. Tells me her diarrhea has not been present last few days, only 1 bowel movement area did no known history of IBS. Past Medical History Positives Diagnosis Date ??? Depression ??? Diabetes mellitus (HCC) ??? Epilepsy (HCC) ??? Hypertension ??? TIA (transient ischemic attack) Family history: Father is , history of leukemia, mi, CAD. Mother is . History of RI and CAD. Social History Socioeconomic History ??? [...] B/P: 142/78 Pulse: 84 Respirations: 18 Temperature: 97.2 General: Well developed, well nourished, in no [...] Patient is admitted for physical therapy and retirement care. She hopes to be able to go back home and live with her once she regains her strength and mobility. History of hydrocephalus status post shunt placement Followed by neurosurgery Dr. Bates at [facility] Epilepsy Continue Depakote Diabetes mellitus type 2 [...] issue in the future then consider IBS Peripheral neuropathy Continue Lyrica Stable Hyperlipidemia Continue [...] transition on her own. By: HI Carver, 01/20/2022 1:19 PM CDT documented in this encounter Plan of Treatment Not on file documented as of this encounter Visit Diagnoses Not on filedocumented in this encounter Care Teams Payable Representative Relationship Specialty Start Date End Date Kulwinder Jackson MD [address] [place] [address] PCP - General Internal Medicine 10/11/17 documented as of this encounter
--- OUTSIDE RECORDS SUMMARY | 2025-05-31 16:03 | XMS_ITS | Encounter Summary ---
Author Organization [facility] Address [address] [facility] [place] [address] Phone Care Team Providers Care Circular Sawyer Helper Name Role Phone Kulwinder Jackson MD Primary Care Provider [phone] Reason for Visit * Reason Onset Date Comments Medication Refill 01/29/2024 Encounter Details Date Type Department Care Team (Late st Contact Info) Description 01/29/2024 [facility] [address] [place] [phone] Andrea Mai, PAC [address] [place], [place] [address] Medication Refill Social History Tobacco Use Types Packs/Day Years [...] Primary documented in this encounter Care Teams Circular Sawyer Helper Relationship Specialty Start Date End Date Kulwinder Jackson MD [address] [place] [address] PCP - General Internal Medicine 10/11/17 documented as of this encounter
[2025-05-31 16:04] LABS: Alanine Aminotransferase 14 U/L (6-35); Albumin Level 3.7 g/dL (3.5-5.1); Alkaline Phosphatase 146 U/L (38-126); Anion Gap 10 mmol/L (4-12); Aspartate Amino Transferase 19 U/L (14-36); Bilirubin,Total 0.4 mg/dL (0.2-1.3); Blood Urea Nitrogen 59 mg/dL (7-17); CRP 1.2 mg/dL (<1.0); Calcium 11.0 mg/dL (8.4-10.2); Carbon Dioxide 28 mmol/L (22-30); Chloride 106 mmol/L (98-107); Cholesterol 150 mg/dL (0-200); Estimated Glomerular Filt Rate 48; Glucose 206 mg/dL (65-110); HDL Direct 34 mg/dL; Magnesium 2.1 mg/dL (1.6-2.3); Osmolality Calculated 320 mOsm/kg (285-295); Potassium 5.5 mmol/L (3.4-5.0); Sodium 144 mmol/L (137-145); Total Protein 8.2 g/dL (6.3-8.2); Triglycerides 242 mg/dL (<150)
--- OUTSIDE RECORDS SUMMARY | 2025-05-31 16:04 | XMS_ITS ---
Author Organization [employer] Care Team Providers Care Final Dressing Cutter Name Role Phone Michael Steven Unavailable Unavailable Opal Pink Unavailable Unavail able Fahim, Magid Unavailable Unavailable Fahim, Magid Unavailable Unavailable Елена Roach Unavailable Unavailable Tamir Kumar S Unavailable Unavailable Allergies and adverse reactions Code CodeSystem Substance Reaction Severity StartDate Concern Status 6809 RXNORM metFORMIN Mild 11/09/2023 active 66009 RXNORM Meloxicam Mild 11/09/2023 active 29567 RXNORM Lisinopril Mild 11/09/2023 active Care Team Name Role Address Phone Organization Dates Michael Steven PCP [address] [place], [address], [facility] (Office): : [employer] 11/10/2023 - 11/16/2023 Opal OchoaZuleika [address], [place], [address], [facility] (Office): : [employer] 11/10/2023 - 11/16/2023 Magid Fahim [address], [address], [place] (Office): : [employer] | Anywhere 11/10/2023 - 11/16/2023 Alton Nunes [address], [place], [address], [facility] (Office): : [employer] | Anywhere 11/10/2023 - 11/16/2023 Елена Roach [address] [place], [place], [facility], [facility] (Office): [phone] (Fax): [employer] | Anywhere 11/10/2023 - 11/16/2023 Tamir Kumar [address] [place], [place], [facility], [facility] (Office): : : [employer] | Anywhere 11/10/2023 - 11/16/2023 Goals Section Goals Description Status Target Date R esident will verbalize and demonstrate positive feelings about activities Active 02/10/2024 Area to right groin will rem ain stable/heal throughout next review. Active 02/10/2024 Area to right inner forearm will remain stable/heal throughout next review. Active 02/10/2024 Area to sacrum will remain stable/heal throughou t next review. Active 02/10/2024 I will express my feelings a bout the changes this virus has imposed and I will not experience any adverse effects from visitation changes/restrictions; throughout the review period. Active 02/10/2024 Resident will consume adequa te nutrition and weight to remain stable throughout next review. Active 02/10/2024 Resident will remain free of respiratory infection signs and symptoms Active 02/10/2024 Staff will monitor well-bein g of others. Resident will have zero episodes of abuse and neglect throughout next review. Active 02/10/2024 Will be able to complete upp er dressing using (specify) staff member once per week by next review. Active 02/10/2024 Will be adequately nourished AEB stable weight t hrough next review Active 02/10/2024 Will express satisfaction wi th self-ability to move in bed throughout next review. Active 02/10/2024 Will remain free of further skin complications throughout next review. Active 02/10/2024 Mental Status Section Date Assessment Total Score Description 11/16/2023 CAM 0 No delirium ind icated Plan of Treatment Section Interventions Intervention Code Code System Display Name Proposed D ate Problems Problem # Description Date of onset Resolved Date Code CodeSystem Concern Status 1 ADULT FAILURE TO THRIVE 11/10/[address] active 2 PAROXYSMAL ATRIAL FIBRILLATION 11/10/[address] active 3 CEREBROVASCULAR DISEASE, UNSPECIFIED 11/09/[address] active 4 DEPRESSION, UNSPECIFIED 11/09/[address] active 5 DYSARTHRIA AND ANARTHRIA 11/09/[address] active 6 EPILEPSY, UNSPECIFIED, NOT INTRACTABLE, WITHOUT STATUS EPILEPTICUS 11/09/[address] active 7 ESSENTIAL (PRIMARY) HYPERTENSION 11/09/[address] active 8 GASTRO-ESOPHAGEAL REFLUX DISEASE WITHOUT ESOPHAGITIS 11/09/[address] active 9 HYPOMAGNESEMIA 11/09/[address] active 10 CARE HOME (CURRENT) USE OF INSULIN 11/09/[address] active 11 MORBID (SEVERE) OBESITY DUE TO EXCESS CALORIES 11/09/[address] active 12 OVERACTIVE BLADDER 11/09/[address] active 13 TYPE 2 DIABETES MELLITUS WITH HYPERGLYCEMIA 11/09/[address] active 14 UNSPECIFIED LACK OF COORDINATION 11/09/[address] active 15 WEAKNESS 11/09/[address] active Reason for Referral No Reasons for Referral Entered Social History Social History Observation Description Start Date End Date Code Code System Current Smoking Status Tobacco smoking consumption unknown 692039981 SNOMED CT Sex Assigned At Female 1965 51973-4 LOINC Gender Identity Sexual Orientation Vital Signs Code Code System Vitals Name Values and Units Timing Information 2339-0 LOINC Blood Sugar Cmlnj=113.0 Units=mg/dL 11/16/2023 00882-6 [facility] Pain Level Value=0.0 11/16/2023 75800-8 [facility] Weight Uhjme=908.8 Units=Lbs 09/2023 8302-2 [facility] Height Value=69.0 Units=Inches 11/10/2023 9279-1 [facility] Respiratory Rate Value=18.0 Units=/m in 11/10/2023 8462-4 [facility] Blood Pressure-Diastolic Value=60 Un its=mmHg 11/10/2023 8480-6 [facility] Blood Pressure-Systolic Ptiml=177 Un its=mmHg 11/10/2023 8310-5 [facility] Body Temperature Value=97.4 Units= F 11/10/2023 8867-4 [facility] Heart rate Value=88.0 Units=/min 01964-6 [facility] O2 % BldC Oximetry Value=94.0 Units= % 11/10/2023"
--- OUTSIDE RECORDS SUMMARY | 2025-05-31 16:04 | XMS_ITS | Encounter Summary ---
Author Organization [facility] Address [address] [facility] [place] [address] Phone Care Team Providers Care Hose Sprayer Name Role Phone Kulwinder Jackson MD Primary Care Provider [phone] Encounter Details Date Type Department Care Team ([facility] Contact Info) Description 04/23/2025 Home Health [facility]i on [facility] [address] [place] [address] Social History Tobacco Use Types Packs/Day Years [...] on filedocumented in this encounter Care Teams Hose Sprayer Relationship Specialty Start Date End Date Kulwinder Jackson MD [address] [place] [address] PCP - General Internal Medicine 10/11/17 documented as of this encounter
--- OUTSIDE RECORDS SUMMARY | 2025-05-31 16:04 | XMS_ITS | Encounter Summary ---
Author Organization [facility] Address [address] [place] [address] Phone Care Team Providers Care Building Supervisor Name Role Phone Kulwinder Jackson MD Primary Care Provider [phone] Encounter Details Date Type Department Care Team (Late st Contact Info) Description 04/13/2025 Lab Requisition [facility] [address] [place] [phone] Kulwinder Jackson MD [address] [place] [address] Urinary tract infection, site not specified Social History Tobacco Use Types Packs/Day Years [...] on file documented as of this encounter Procedures Procedure Name Priority Date/Time Associated Diagnosis Comments HEMOGLOBIN A1C W/ ESTIMATED GLUCOSE Routine 04/13/2025 5:00 PM CDT Urinary tract infection, site not specified CBC WITH AUTO DIFFERENTIAL Routine 04/13/2025 5:00 PM CDT Urinary tract infection, site not specified THYROID STIMULATING HORMONE (TSH) Routine 04/13/2025 5:00 PM CDT Urinary tract infection, site not specified CMP (COMPREHENSIVE METABOLIC PANEL) Routine 04/13/2025 5:00 PM CDT Urinary tract infection, site not specified COMPLETE BLOOD COUNT (CBC) WITH DIFF Routine 04/13/2025 5:00 PM CDT Urinary tract infection, site not specified documented in this encounter Results * (ABNORMAL) CBC WITH AUTO DIFFERENTIAL (04/13/2025 5:00 PM CDT) WBC 8.68 4.00 - 12.00 10(3)/mcL 04/13/2025 6:03 PM CDT [facility] RBC 4.07 3.80 - 5.30 10(6)/mcL 04/13/2025 6:03 PM CDT [facility] HEMOGLOBIN (HGB) 11.4(L) 12.0 - 15.8 g/dL 04/13/2025 6:03 PM CDT [facility] HEMATOCRIT (HCT) 36.5 36.0 - 47.0 % 04/13/2025 6:03 PM CDT [facility] MCV 89.7 82.0 - 96.0 fL 04/13/2025 6:03 PM CDT [facility] MCH 28.0 26.0 - 34.0 pg 04/13/2025 6:03 PM CDT [facility] MCHC 31.2 31.0 - 36.0 g/dL 04/13/2025 6:03 PM CDT [facility] PLATELET COUNT 384 140 - 440 10(3)/mcL 04/13/2025 6:03 PM CDT [facility] RDW 16.3(H) 11.8 - 15.5 % 04/13/2025 6:03 PM CDT [facility] MPV 9.4(L) 9.7 - 12.4 fL 04/13/2025 6:03 PM CDT [facility] NEUTROPHILS 55.9 47.0 - 73.0 % 04/13/2025 6:03 PM CDT [facility] LYMPHOCYTES 26.3 18.0 - 42.0 % 04/13/2025 6:03 PM CDT [facility] MONOCYTES 14.3(H) 4.0 - 12.0 % 04/13/2025 6:03 PM CDT [facility] EOSINOPHILS 1.3 0.0 - 5.0 % 04/13/2025 6:03 PM CDT [facility] BASOPHILS 0.7 0.0 - 1.0 % 04/13/2025 6:03 PM CDT [facility] IMMATURE GRANULOCYTE 1.5(H) 0.0 - 0.4 % 04/13/2025 6:03 PM CDT [facility] Comment:Immature Granulocyte s includes Metamyelocytes, Myelocytes, and Promyelocytes. ABSOLUTE NEUTROPHILS 4.86 1.60 - 7.70 10(3)/mcL 04/13/2025 6:03 PM CDT [facility] ABSOLUTE LYMPHOCYTES 2.28 1.30 - 3.20 10(3)/[facility] 04/13/2025 6:03 PM CDT [facility] ABSOLUTE MONOCYTES 1.24(H) 0.20 - 1.00 10(3)/[facility] 04/13/2025 6:03 PM CDT [facility] ABSOLUTE EOSINOPHIL 0.11 0.00 - 0.40 10(3)/[facility] 04/13/2025 6:03 PM CDT [facility] ABSOLUTE BASOPHILS 0.06 0.00 - 0.10 10(3)/[facility] 04/13/2025 6:03 PM CDT [facility] ABSOLUTE IMMATURE GRANULOCYTE 0.13(H) 0.00 - 0.03 10 (3) mcL. 04/13/2025 6:03 PM CDT [facility] NRBC PER 100 WBC 0 04/13/20 6:03 PM CDT [facility] Blood No Phlebotomy Charged / Unknown 04/13/2025 5:00 PM CDT 04/13/2025 5:58 PM CDT Kulwinder Jackson MD HEMATOLOGY ORDERABLES Final Res ult Performing Organization Address City/[facility] Co de Phone Number [facility] [place] [address] * (ABNORMAL) HEMOGLOBIN A1C W/ ESTIMATED GLUCOSE (04/13/2025 5:00 PM CDT) HGB-A1C 7.6(H) 4.0 - 6.0 % 04/13/2025 6:32 PM CDT [facility] Est Average Glucose 171.4 mg/dL 04/13/2025 6:32 PM CDT [facility] Blood No Phlebotomy Charged / Unknown 04/13/2025 5:00 PM CDT 04/13/2025 5:58 PM CDT Narrative [facility] - 04/13/2025 6:32 PM CDT HEMOGLOBIN A1C: DIABETIC PATIENTS: WELL-CONTROLLED: 6.2 - 7.0 INTERMEDIATE WELL-CONTROLLED: 7.0 - 9.0 POORLY-CONTROLLED: >9.0 Specimens containing greater than 5% of Hemoglobin F may result in lower than expected % HbA1C results. Kulwinder Jackson MD CHEMISTRY ORDERABLES Final Resu lt Performing Organization Address [facility] Co de Phone Number [facility] [place] [address] * (ABNORMAL) THYROID STIMULATING HORMONE (TSH) (04/13/2025 5:00 PM CDT) TSH 9.792(H) 0.300 - 5.000 mIU/L 04/13/2025 6:39 PM CDT [facility] Blood No Phlebotomy Charged / Unknown 04/13/2025 5:00 PM CDT 04/13/2025 5:58 PM CDT Kulwinder Jackson MD CHEMISTRY ORDERABLES Final Resu lt Performing Organization Address City/[facility]/ZIP Co de Phone Number [facility] [place] [address] * (ABNORMAL) CMP (COMPREHENSIVE METABOLIC PANEL) (04/13/2025 5:00 PM CDT) SODIUM 139 136 - 145 mmol/L 04/13/2025 6:20 PM CDT [facility] POTASSIUM 5.5(H) 3.5 - 5.1 mmol/L 04/13/2025 6:20 PM CDT [facility] CHLORIDE 106 98 - 107 mmol/L 04/13/2025 6:20 PM CDT [facility] CO2, VENOUS 24 22 - 30 mmol/L 04/13/2025 6:20 PM CDT [facility] ANION GAP 14.5 <18.0 mmol/L 04/13/2025 6:20 PM CDT [facility] GLUCOSE 219(H) 70 - 99 mg/dL 04/13/2025 6:20 PM CDT [facility] BUN 46(H) 10 - 20 mg/dL 04/13/2025 6:20 PM CDT [facility] CREATININE, BLOOD 1.12(H) 0.60 - 1.00 mg/dL 04/13/2025 6:20 PM CDT [facility] BUN/CREATININE RATIO 41(H) 12 - 20 ratio 04/13/2025 6:20 PM CDT [facility] TOTAL PROTEIN 7.4 6.0 - 8.0 g/dL 04/13/2025 6:20 PM CDT [facility] ALBUMIN 3.0(L) 3.5 - 5.0 g/dL 04/13/2025 6:20 PM CDT [facility] A/G RATIO 0.7(L) 1.0 - 2.2 04/13/2025 6:20 PM CDT [facility] CALCIUM 10.8(H) 8.7 - 10.5 mg/dL 04/13/2025 6:20 PM CDT [facility] T BILI 0.2 0.2 - 1.2 mg/dL 04/13/2025 6:20 PM CDT [facility] SGOT (AST) 9 <43 U/L 04/13/2025 6:20 PM CDT [facility] SGPT (ALT) <6 <56 U/L 04/13/2025 6:20 PM CDT [facility] ALKALINE PHOSPHATASE 88 40 - 150 U/L 04/13/2025 6:20 PM CDT [facility] GFR, ESTIMATED 56(L) >=60 04/13/2025 6:20 PM CDT [facility] Comment: Creatinine Clearance is the preferred criteria for selecting drug dose adjustments in renally impaired patients. The GFR is provided as additional pertinent clinical information. GFR is reported in mL/min/1.73 sq m. Calculation based on the Chronic Kidney Disease Epidemiology Collaboration (CKD- EPI) equation refit without adjustment for race. GFR, EST. 60 >=60 025 6:20 PM CDT [facility] GFR, EST. NONAFRICAN 50(L) >=60 04/13/2025 6:20 PM CDT [facility] Blood No Phlebotomy Charged / Unknown 04/13/2025 5:00 PM CDT 04/13/2025 5:58 PM CDT us Kulwinder Jackson MD CHEMISTRY ORDERABLES Final Resu lt Performing Organization Address City/State/[facility] Co de Phone Number [facility] [place] [address] documented in this encounter Visit Diagnoses Diagnosis Urinary tract infection, site not specified documented in this encounter Care Teams Building Supervisor Relationship Specialty Start Date End Date Kulwinder Jackson MD [address] [place] [address] PCP - General Internal Medicine 10/11/17 documented as of this encounter
--- OUTSIDE RECORDS SUMMARY | 2025-05-31 16:04 | XMS_ITS | Encounter Summary ---
Author Organization [facility] Address [address] [place] [address] Phone Care Team Providers Care Land Leasing Information Clerk Name Role Phone Kulwinder Jackson MD Primary Care Provider [phone] Encounter Details Date Type Department Care Team (Late st Contact Info) Description 03/23/2025 Nursing Facility [facility] [address] [place] [phone] Dong Grant APRN, SALES TRADER [address] [place] [address] Social History Tobacco Use Types Packs/Day Years [...] as of this encounter Progress Notes * Dong Grant APRN, SALES TRADER - 03/23/2025 11:59 PM CDT [facility] PROGRESS NOTE Opal Gardiner is a 59 y.o. female at [facility] for rehabilitation. Patient was admitted from the hospital after diagnosed with a UTI. She was treated with antibiotics. She was admitted to [facility] for respite care. Patient tells me her recently undergone surgical intervention, as she will be returning to home after his recovery. Subjective: Interval History: I am seeing this resident for routine follow up encounter. Review of Systems: A 14 point comprehensive review of systems was negative except what is documented in interval history above. Objective: Exam: General: well developed well nourished, alert, oriented and in no acute distress Skin: normal coloration and turgor, no rashes HEENT: normocephalic, atraumatic. Pupils rt eye enucleated, Left eye is equal, round and reactive to light. Extraocular movements intact. Oronasopharynx pink and moist, no lesion or exudate. Neck: Supple. No JVD, lymphadenopathy thyromegaly or carotid bruits auscultated CVS: RRR, S1/S2 normal, no murmurs, gallops or rubs Chest: overall diminished Abdominal: soft, nontender, nondistended. Positive Bowel sounds, no organomegaly appreciated Extremities: BLE swelling 3-4+ Neuro: alert and orient x 3. Moves all extremities well. No neurological deficits noted. Gait not tested Lab Results: none Imaging: none Assessment/Plan: Idiopathetic NPH with rt ventricular shunt Epilepsy Continue Depakote Chronic systolic CHF Chronic bilateral lower extremity swelling Currently not in exacerbation Last echo with EF of 35% per chart review Continue Lasix, Entresto Diabetes type 2 Blood sugars have been stable, continue sliding scale insulin and oral agent Paroxysmal atrial fibrillation Currently rate controlled, continue Eliquis and metoprolol Anxiety and depression Continue buspirone and duloxetine Urinary retention Recent UTI Chronic indwelling [place] catheter was placed about a month ago Completed antibiotic VTE Prophylaxis: Activity By: Dong Grant APRN, CNP, 03/24/2025 5:06 PM CDT documented in this encounter Plan of Treatment Not on file documented as of this encounter Visit Diagnoses Not on filedocumented in this encounter Care Teams Land Leasing Information Clerk Relationship Specialty Start Date End Date Kulwinder Jackson MD [address] [place] [address] PCP - General Internal Medicine 10/11/17 documented as of this encounter
--- OUTSIDE RECORDS SUMMARY | 2025-05-31 16:04 | XMS_ITS | Clinical Summary ---
Author Organization [facility] Address [address] [place] [address] Care Team Providers Care Foster Care Worker Name Role Phone Kulwinder Jackson MD Primary Care Provider [phone] Source Comments [facility],non-owned Affiliates and Associated Physician Practices is amultiple site organization consisting of ambulatory clinics and hospital sitesin [place], [place], [place] and [place]. This disclosure is being madepursuant to the Care Everywhere program and may not contain all information available regarding this patient. Last updated 18.[facility] Medications * Be aware that medications may not be up to date on this document. Alwaysverify current medications with the patient. dorzolamide (TRUSOPT) 2 % ophthalmic solution Instill into right eye BID. 7 Active HYDROcodone-nubia taminophen (NORCO) 10-325 MG tablet 8 Active atorvastatin (LIPITOR) 40 MG tablet Take 40 mg by mouth DAILY. 8 Active insulin aspart (NOVOLOG FLEXPEN) pen 8 Active acetaminophen (TYLENOL) 500 MG tablet Take 50 mg by mouth 4X/day. 8 Active verapamil CR (ISOPTIN-SR) 180 MG tablet Take 180 mg by mouth. 8 Active prochlorperazin e (COMPAZINE) 10 MG tablet Take 10 mg by mouth BID. 8 Active pregabalin (LYRICA) 100 MG capsule Take 100 mg by mouth BID. 8 Active timolol maleate (TIMOPTIC) 0.5 % ophthalmic solution Instill into right eye BID. [address] (DEPAKOTE) 500 MG tablet Take 500 mg by mouth DAILY. 8 Active pregabalin (LYRICA) 75 MG capsule Take 75 mg by mouth BID. 8 Active BASAGLAR KWIKPEN (BASAGLAR) pen 7 Active Naphazoline-Gly cerin (REDNESS RELIEF MAX STRENGTH) 0.03-0.5 % 1 drop by Ophthalmic route. 8 Active atropine 1 % ophthalmic solution Instill into right eye. 7 Active raNITIdine (ZANTAC) 300 MG tablet Take 300 mg by mouth DAILY. 8 Active metFORMIN (GLUCOPHAGE) 1000 MG tablet Take 1,000 mg by mouth BID. 8 Active LORazepam (ATIVAN) 0.5 MG tablet Take 0.5 mg by mouth DAILY. 7 Active cranberry 500 MG capsule Take 50 mg by mouth DAILY. 8 Active ketorolac (TORADOL) 10 MG tablet Take 10 mg by mouth DAILY. 8 Active escitalopram (LEXAPRO) 20 MG tablet Take 20 mg by mouth DAILY. 8 Active blood glucose (TRUE METRIX BLOOD GLUCOSE TEST) test strip 7 Active hydroCHLOROthia zide (HYDRODIURIL) 25 MG tablet Take 25 mg by mouth DAILY. 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 10/25/2017 Pain of right eye 10/25/2017 Encounters Date Type Department Care Team Description 04/03/2025 Travel from Last 3 Months Family History Medical History Relation Name Comments Diabetes - Type 2 Father Status: De ceased None Known Mother Status: d Cataract Sister Diabetes - Type 2 Sister Status: De ceased Glaucoma Sister Relation Name Status Comments Father Mother Sister Social History Tobacco Use Types Packs/Day Years Used Date Smoking Tobacco: Former Smokeless Tobacco: Never Alcohol Use Standard Drinks/Week Comments No 0 (1 standard drink = 0.6 oz pur e alcohol) Comments Unknown Sex and Gender Information Value Date Recorded Sex Assigned at Not on file 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 Gender Identity Not on file Sexual Orientation Not on file Plan of Treatment Upcoming Encounters Date Type Department Care Team (Late st Contact Info) Description 06/14/2025 9:00 AM CDT Office Visit [facility] - Urology [address] [place] [phone] Lindsey Amaro DO [facility] [phone] Health Maintenance Due Date Last Done Comments COLOGUARD (AGES 45-75) - COL ON CA SCREENING 1965 CT COLONOGRAPHY - COLON CA SCREENING 1965 FIT - COLON CA SCREENING 1965 FLEX SIG - COLON CA SCREENING 1965 MAMMOGRAM 1965 HIV SCREENING 1980 HEPATITIS C SCREENING 04/06/1983 DIABETES-SERUM CREATININE 1983 DTAP/TDAP/TD VACCINES (1 - Tdap) 1984 PNEUMOCOCCAL VACCINE 50+ (1 of 2 - PCV) 1984 PAP SMEAR 1986 ZOSTER VACCINE (1 of 2) 2015 DEPRESSION SCREENING 09/14/2024 DIABETES - URINE PROTEIN SCREENING 09/14/2024 DIABETES RETINOPATHY SCREENING 02/14/2025 10/20/2019 DIABETES-FOOT EXAM WITH MONOFILAMENT 02/14/2025 Respiratory Syncytial Virus (RSV) Vaccine Pt: or over 60 yrs (1 - Risk 60-74 years 1-dose series) 2025 COVID-19 VACCINE (1 - 2023-2 5 season) 2025 INFLUENZA VACCINE (#1) 2025 , 07/28/2022, 08/11/2017 DIABETES-HGB A1C 05/27/2025 11/24/2024 COLON MONITORING 03/08/2031 03/08/2021 COLONOSCOPY - COLON CA SCREENING 03/08/2031 03/08/2021 Colorectal Cancer Screening 03/08/2031 HEPATITIS B VACCINE Aged Out No longe r eligible based on patient's age to complete this topic HIB VACCINE Aged Out No longer eligi ble based on patient's age to complete this topic HPV VACCINE Aged Out No longer eligi ble based on patient's age to complete this topic MENINGOCOCCAL (Group B) VACCINE SHARED DECISION-MAKING Aged Out No longer eligible based on patient's age to complete this topic MENINGOCOCCAL GROUPS A/C/Y/W VACCINE Aged Out No longer eligible b ased on patient's age to complete this topic Insurance [facility] Care Teams Foster Care Worker Relationship Specialty Start Date End Date Kulwinder Jackson MD [address] [place] [address] PCP - General 10/21/17
--- OUTSIDE RECORDS SUMMARY | 2025-05-31 16:04 | XMS_ITS | Encounter Summary ---
Author Organization [facility] Address [address] [place] [address] Phone Care Team Providers Care Customer Operations Manager Name Role Phone Kulwinder Jackson MD Primary Care Provider Encounter Details Date Type Department Care Team (Late st Contact Info) Description 04/13/20[facility] [address] [place] [phone] Kulwinder Jackson MD [address] [place] [address] Urinary tract infection, site not specified Social [...] Procedure Name Priority Date/Time Associated Diagnosis Comments URINALYSIS REFLEX IF INDICATED BY ABNORMAL RESULTS Routine 04/13/2025 5:00 PM CDT Urinary tract infection, site not specified CULTURE, URINE Routine 04/13/2025 5:00 PM CDT Urinary tract infection, site not specified documented in this encounter Results * CULTURE, URINE (04/13/2025 5:00 PM CDT) CULTURE RESULTS NAKASEOMYCES GLABRATUS 04/16/2025 12:31 PM CDT [facility] Comment: SENSITIVITY NOT PERFORMED Nakaseomyces glabrata, formerly C. glabrata is relatively resistant to fluconazole Urine URINE SPECIMEN / Unknown Non-Phlebotomy Collection / Unknown 04/13/2025 5:00 PM CDT 04/13/2025 5:55 PM CDT us Kulwinder Jackson MD MICROBIOLOGY - GENERAL ORDERABL ES Final Result [facility] [address] [place] [address], * (ABNORMAL) URINALYSIS REFLEX IF INDICATED BY ABNORMAL RESULTS (04/13/2025 5:00 PM CDT) SPECIFIC GRAVITY 1.010 1.003 - 1.030 04/13/2025 6:31 PM CDT [facility] URINE PH 6.0 5.0 - 9.0 04/13/2025 6:31 PM CDT [facility] WBC ESTERASE 500 /uL(A) Negative 04/13/2025 6:31 PM CDT [facility] NITRITE Negative Negative 04/13/2025 6:31 PM CDT [facility] PROTEIN, RANDOM URINE 100 mg/dL(A) Negative 04/13/2025 6:31 PM CDT [facility] URINE GLUCOSE, QUAL 1000 mg/dL(A) Negative 04/13/2025 6:31 PM CDT [facility] URINE KETONES Negative Negative 04/13/2025 6:31 PM CDT [facility] UROBILINOGEN Normal Normal mg/dL 04/13/2025 6:31 PM CDT [facility] URINE BLOOD 50 /uL(A) Negative mindy/ul 04/13/2025 6:31 PM CDT [facility] URINALYSIS COLOR Yellow 04/13/20 6:31 PM CDT [facility] URINALYSIS CLARITY Very Cloudy 04/13/2025 6:31 PM CDT [facility] WBC (Urine) Packed(A) Negative, 0-5 /hpf 04/13/2025 6:31 PM CDT [facility] URINE RBC'S 3-5(A) Negative, 0-2 /hpf 04/13/2025 6:31 PM CDT [facility] EPITHELIAL CELLS Negative /lpf 04/13/20 6:31 PM CDT [facility] BACTERIA, URINE Moderate(A) Negative /hpf 04/13/2025 6:31 PM CDT [facility] URINE YEAST Many Budding Yeast 04/13/2025 6:31 PM CDT [facility] Urine URINE SPECIMEN / Unknown Non-Phlebotomy Collection / Unknown 04/13/2025 5:00 PM CDT 04/13/2025 5:55 PM CDT Kulwinder Jackson MD URINE ORDERABLES Final Result Performing Organization Address City/State/[facility] Co de Phone Number [facility] [address] [place] [address] documented in this encounter Visit Diagnoses Diagnosis Urinary tract infection, site not specified documented in this encounter Care Teams Customer Operations Manager Relationship Specialty Start Date End Date Kulwinder Jackson MD [address] [place] [address] PCP - General Internal Medicine 10/11/17 documented as of this encounter
--- OUTSIDE RECORDS SUMMARY | 2025-05-31 16:04 | XMS_ITS | Encounter Summary ---
Author Organization [facility] Address [address] [place] [address] Phone Care Team Providers Care Raw Products Director Name Role Phone Kulwinder Soto MD Primary Care Provider Encounter Details Date Type Department Care Team (Late st Contact Info) Description 03/06/2025 Nursing Facility [facility] [address] [place] [phone] Kassidy Mackey MD [address] [place] [address] Social History Tobacco Use Types Packs/Day Years [...] as of this encounter H&P Notes * Kassidy Mackey MD - 03/06/2025 11:59 PM CDT [facility] History and Physical Chief Complaint: Re-Admit receiving ocean transportation intermediary care HPI: Opal Gardiner is a 59 y.o. female who has a PMH of A-Fib, GERD, Epilepsy, DMT2, Depression, transferred to [facility] for fdc care and rehabilitation. Pt was recently hospitalized at [facility] on 02/24 - 02/27 due to a UTI with indwelling urethral catheter. At the time of this assessment, the patient was laying in bed resting. Pt's indwelling catheter wasclear but had settlements at the bottom. This might be caused from her sitting there for a while and then moving around and the catheter catching some of the settlements. Pt stated that she was doinggood she didn't have any c/o or pain at this time, we will continue fdc care. History obtained from: patient, medical records Review of External Records: Mckayla Jacobs records from 01/20/24 - 03/06/25. Allergies: has no known allergies. Past Medical History: She has a past [...] turgor, no rashes HEENT: Normocephalic, atraumatic, no flaring, missing a few teeth but over all good. Eyes: nonicteric, intact extra ocular movement, PERRL Neck: normal, supple, no lymphadenopathy Heart: regular rate and rhythm, S1, S2 normal, no murmur, click, rub or gallop Lungs: clear to auscultation, normal respirations, normal precautions Abdominal: soft, non-tender; bowel sounds normal; no masses, no organomegaly : external genitalia normal in appearance Extremities: no deformities, joint mobility appears intact, no clubbing, 2 + pitting edema. Neuro: Non-focal, CN intact, sensory and motor intact Psychological: alert and oriented X3, appropriate mood and affect, Intact judgement and memory Data Review: Lab Results: Lab Results Component Value Date WBC 9.38 06/30/2016 HEMOGLOBIN 11.4 (L) 06/30/2016 PLATELETCNT 176 06/30/2016 MCV 83.2 06/30/2016 Lab Results Component Value Date SODIUM 135 06/30/2016 POTASSIUM 5.1 06/30/2016 CHLORIDE 99 (L) 06/30/2016 CO2VEN 25 06/30/2016 GLUCOSE 240 (H) 06/30/2016 ANIONGAP 16.1 06/30/2016 BUN 21 06/30/2016 CREATININE 1.07 06/30/2016 CALCIUM 9.7 06/30/2016 Lab Results Component Value Date INR 0.9 06/30/2016 Imaging: No new imaging. New Orders: Repeat a UA to rule out any infections. Murelax BID to help with constipation Assessment/Plan: Complicated UTI The patient has been admitted to the hospital with a complicated UTI and was treated with IV antibiotics and will finish the course of the treatment with oral antibiotics HLD Stable over all continue Atorvastatin. Anxiety Stable continue BusPIRone. Depression Stable over all continue DULoxetine. GERD Continue Protonix. Seizures No recent seizures continue Depakote. Heart Failure Continue Sacubitril-Valsartan.She has an EF of 35% on the most recent Echo, she has to be on quadruple therapy for the heart failure but this can be initiated as outpatient. VTE Prophylaxis: Mobilization. Fall Care Plan Review: Patient has been educated on fall precautions and will be closely monitored. Pressure Ulcer Prevention Plan: Mobilization. Disposition and escalation or reduction of care: The patient is to receive post- acute care and complete PT and OT at the SNF to improve strength, balance, and mobility back to baseline with the goal of getting back to baseline. Advance Care Planning: Aggregate [id number] time, greater than 16 minutes was spent discussing end-of-life care planning with patient/family and/or Power of Inspector Filters. Discussed CPR, Intubation, treatment goals, and Quality of life/Intensity of care. Patient desires CPR-Full Treatment POLST Form Completed accordingly. I, Wild Becerra, acting as a scribe am personally taking down the notes on behalf of Dr. Kassidy Mackey M.D. based on the clinical information provided to me by him. Please take no action on this note until reviewed and authenticated and cosigned by the physician. Primary Care Physician: KULWINDER SOTO MD By: WILD BECERRA, 03/07/2025 I evaluated and examined the patient in person and discussed the physical findings and clinical assessment with maykel Becerra and reviewed the medical records and notes above and agree with the content and details of the note. By: Kassidy Mackey M.D . documented in this encounter Plan of Treatment Not on file documented as of this encounter Visit Diagnoses Not on filedocumented in this encounter Care Teams Raw Products Director Relationship Specialty Start Date End Date Kulwinder Soto MD [address] [place] [address] PCP - General Internal Medicine 10/11/17 documented as of this encounter
--- OUTSIDE RECORDS SUMMARY | 2025-05-31 16:04 | XMS_ITS | Clinical Summary ---
Author Organization [facility] Address [address] [place] [address] Care Team Providers Care Custom Ski Maker Name Role Phone Kulwinder Jackson MD Primary Care Provider [phone] Susan Brantley MD Unavailable [phone] Helen Valles MD Unavailable Antoine Polanco MD Unavailable [phone] Raul Cartagena MD Unavailable [phone] Allergies Active Allergy Reactions Criticality Noted Date Comments Lisinopril Unknown Low 01/14/2022 Meloxicam Unknown Low 01/14/2022 Metformin Diarrhea Low 04/21/[address] (PROTONIX) 20 mg EC tabletIndication s:Stress Ulcer Prophylaxis Take 1 tablet (20 mg total) by mouth daily Active acetaminophen (TYLENOL) 325 mg tabletIndication s:Yaws Take 2 tablets (650 mg total) by mouth every 6 (six) hours as needed for pain 30 tablet 1 Active busPIRone (BUSPAR) 10 mg tabletIndication s:Generalized Anxiety Disorder Take 1 tablet (10 mg total) by mouth 2 (two) times a day 2 Active montelukast (SINGULAIR) 10 mg tabletIndication s:Seasonal Allergic Rhinitis Take 1 tablet (10 mg total) by mouth nightly [address] (CYMBALTA) 20 mg capsuleIndicatio ns:Anxiety with Depression Take 30 mg by mouth daily Active docusate sodium (COLACE) 100 mg capsuleIndicatio ns:constipation Take 1 capsule (100 mg total) by mouth 2 (two) times a day as needed for constipation 30 capsule 4 Active oxyCODONE (ROXICODONE) 5 mg immediate release tabletIndication s:Pain Take 1 tablet (5 mg total) by mouth every 4 (four) hours as needed for pain 4 Active furosemide (LASIX) 20 mg tablet Take 1 tablet (20 mg total) by mouth as needed (If you gain more than 2 pounds in 1 day, or if you gain more than 3 pounds in 2 days, take 1 tablet of Lasix.) 4 Active dapagliflozin propanediol (FARXIGA) 10 mg tabletIndication s:Heart Failure Take 1 tablet (10 mg total) by mouth daily [address] (DEPAKOTE) 500 mg EC tablet Take 2 tablets (1,000 mg total) by mouth nightly [address] (DEPAKOTE) 500 mg EC tablet Take 1 tablet (500 mg total) by mouth daily 4 025 Active apixaban (ELIQUIS) 5 mg tabletIndication s:atrial fibrillation Take 1 tablet (5 mg total) by mouth every 12 (twelve) hours 4 Active metoprolol XL (TOPROL-XL) 25 mg extended release tablet Take 1 tablet (25 mg total) by mouth daily 4 025 Active pregabalin (LYRICA) 200 mg capsule Take 1 capsule (200 mg total) by mouth 3 (three) times a day 5 Active sacubitriL-valsa rtan (ENTRESTO) 24-26 mg tabletIndication s:chronic heart failure Take 1 tablet by mouth 2 (two) times a day 5 Active atorvastatin (LIPITOR) 40 mg tabletIndication s:hyperlipidemia Take 1 tablet (40 mg total) by mouth daily 30 tablet 5 026 Active insulin glargine 100 unit/mL vial for injection Inject 40 Units under the skin nightly Active insulin lispro (HumaLOG, ADMELOG) 100 unit/mL pen for injection Inject 9 Units under the skin 3 (three) times a day before meals Active miconazole 2 % powder Apply topically 2 (two) times a day 70 g 11 5 Active Active Problems Problem Noted Date Diagnosed Date Mild protein-calorie malnutrition 04/19/2025 Urinary tract infection asso ciated with catheterization of urinary tract, unspecified indwelling urinary catheter type, initial encounter 04/18/2025 NSTEMI (non-ST elevated myocardial infarction) 0 04/18/2025 Hypotension due to hypovolemia 03/27/2025 Urinary tract infection asso ciated with indwelling urethral catheter, initial encounter 02/24/2025 Pyelonephritis 01/25/2025 Acute on chronic combined sy stolic and diastolic congestive heart failure 01/22/2025 Anxiety and depression 01/22/2025 Neuropathy 01/22/2025 UTI (urinary tract infection) 11/24/2024 Hyperkalemia 11/24/2024 Hypotension 11/24/2024 Altered mental status, unspe cified altered mental status type 05/29/2024 Atrial fibrillation with RVR 01/17/2024 Assessment & Plan (01/17/2024 7:46 PM CDT): Parosysmal atrial fibrillation noted on Telemetry with RVR. It responded to IV metoprolol 5mg and increased dosing of carvedilol -CHADS2-VASc of 3 (Female, HTN, T2DM) and likely HFmrEF. Recommend starting anticoagulation when able -Continue carvedilol 6.25mg BID -It is plausible that an episode of AF with RVR was the cause of her CP and elevated troponin. -->Would stop checking troponin and continue monitoring on telemetry -She will need outpatient cardiology follow up. NPH (normal pressure hydrocephalus) 01/14/2024 Hypomagnesemia 11/03/2023 Cerebrovascular accident (CVA), unspecified mech anism 07/23/2022 Colitis 03/05/2021 Fecal impaction 03/05/2021 Acute urinary obstruction 03/05/2021 Sigmoid stricture 03/05/2021 Stercoral ulcer of anus 03/04/2021 Constipation 03/04/2021 Overview (03/06/2021): Added automatically from request for surgery [id number] Abnormal computed tomography angiography (CTA) of abdomen and pelvis 03/04/2021 Overview (03/06/2021): Added automatically from request for surgery [id number] Hydrocephalus 01/10/2021 Overview (01/15/2021): Added automatically from request for surgery [id number] Vertigo 01/09/2021 Class 3 severe obesity due t o excess calories with serious comorbidity and body mass index (BMI) of 40.0 to 44.9 in adult 01/09/2021 Acute cystitis without hematuria 01/08/2021 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 Attached 360 with dense PRP, no active NV Recommend observation RTC 3 months. Assessment & Plan (05/20/2018 4:15 PM CDT): Doing well. Attached 360 with dense PRP, no NV today. RTC 6-9 months. Signs and symptoms of retinal detachment tears and elevated intra-ocular pressure and infection discussed with the patient. Type 2 diabetes mellitus wit h hyperglycemia, with long-term current use of insulin 04/15/2015 Assessment & Plan (06/09/2023 2:34 PM CDT): Diagnosed at the age of 20 On insulin since 2002 Had diarrhea on metformin Control : chronic poor control on lantus only- pre meal Humalog added few weeks ago with some improvement in accuchecks. A1c 10.1% on 04/21/23 Kidney: GFR 76 on 12/23/22 Plan: Continue diet plan Continue Lantus to 60 units Qhs. Use Humalog insulin twice per day with meals 6 units with lunch and 10 units with dinner Monitor sugars 3 x per day and send records in 2 weeks. Hypoglycemia symptoms and treatment reviewed with patient. Call if having low sugars. Ophthalmology exam on regular basis. Assessment & Plan (04/21/2023 2:26 PM CDT): Diagnosed at the age of 20 On insulin since 2002 Had diarrhea on metformin Control : chronic poor control on lantus only A1c 10.1% on 04/21/23 Kidney: GFR 76 on 12/23/22 Plan: Refer patient to dietitian. Decrease Lantus to 60 units Qhs. Use Humalog insulin twice per day with meals 6 units with lunch and 10 units with dinner Monitor sugars 3 x per day and send records in one week Hypoglycemia symptoms and treatment reviewed with patient. Call if having low sugars. Ophthalmology exam on regular basis. Seizure disorder 04/15/2015 Hyperlipidemia 04/15/2015 Essential hypertension 04/15/2015 Paroxysmal atrial fibrillation 06/30/2014 Physical deconditioning Sepsis due to Escherichia coli Acute pyelonephritis Normocytic anemia Acute renal failure Weakness Urinary retention Hyperglycemia Resolved Problems Problem Noted Date Diagnosed Date Resolved Date Traction detachment of retina, right eye 12/12/2015 05/20/2018 Proliferative diabetic retinopathy(362.02) 04/15/2015 05/20/2018 Encounters Date Type Department Care Team Description 04/22/2025 7:43 PM CDT - 04/22/2025 11:59 PM CDT Hospital Encounter [facility] Emergency, Room R Discharge Disposition: Discharge to home or self care 04/18/2025 2:15 PM CDT - 04/22/2025 7:40 PM CDT Hospital Encounter [address] [address] Kathrine Ricardo MD Nikolic, Jelena, MD Nations, Demar Vail, DO Urinary tract infection associated with catheterization of urinary tract, unspecified indwelling urinary catheter type, initial encounter (Primary Dx); Weakness; NSTEMI (non-ST elevated myocardial infarction) (HCC); Acute on chronic combined systolic and diastolic congestive heart failure (HCC); Urinary tract infection associated with indwelling urethral catheter, initial encounter Discharge Disposition: Discharge to home, home health skilled care 04/18/2025 1:55 PM CDT - 04/18/2025 11:59 PM CDT Hospital Encounter [facility] Emergency, Room R Discharge Disposition: Discharge to home or self care 03/30/2025 12:59 PM CDT - 03/30/2025 11:59 PM CDT Hospital Encounter [facility] Emergency, Room R Discharge Disposition: Discharge to home or self care 03/26/2025 7:31 PM CDT - 03/30/2025 12:55 PM CDT Hospital Encounter [facility] IMU [address] [id number] Vishal Martinez MD Casner, MD Troy Sofia, MD Faisal De Souza Huzaifa, MD Davis, Dank Barbour II, MD Hypotension due to hypovolemia (Primary Dx); Symptomatic anemia; Hypoalbuminemia; Atrial fibrillation, unspecified type (HCC); Urinary tract infection associated with indwelling urethral catheter, initial encounter Discharge Disposition: Discharge to home, home health skilled care 03/20/2025 [facility] [address], [address] [place] [address] Anatoly Bates MD NPH (normal pressure hydrocephalus) (HCC) (Primary Dx) 03/07/2025 Telephone [facility] Medicine Scheduling [address] [place] [address] Padmini Cline from Last 3 Months Immunizations Immunization Administration Dates Next Due Influenza, Quadrivalent, Spl it, Preservative Free, Intramuscular 11/09/2023,07/28/2022 Influenza, Unspecified 08/11/2017 Pneumococcal Polysaccharide PPV23 08/30/2002 Tdap 04/01/2007 Surgical History Surgery Date Site/Laterality Comments LUMBAR PUNCTURE WO INJECTION , DIAGNOSTIC 12/30/2015 N/A EYE SURGERY ENUCLEATION 12/17/[address] Cueto INSERT VENA CAVA FILTER 01/15/2021 N/A GALLBLADDER SURGERY Medical History Medical History Date Comments Seizure disorder (HCC) Seizure d isorder Type 2 diabetes mellitus Diabete s type 2 Hx Other Medical Anemia Chronic diarrhea Chronic kidney disease Family History Medical History Relation Name Comments Coronary artery disease Father Fami ly history of coronary artery disease - (Added by TW Conv) Diabetes Father Diabetes mellit us; Lymphoma Father Lymphoma; Coronary artery disease Mother Fami ly history of coronary artery disease - (Added by TW Conv) Stroke Mother Stroke; Diabetes Other Diabetes mellit us; Coronary artery disease Sister Fami ly history of coronary artery disease - (Added by TW Conv) Glaucoma Neg Hx Relation Name Status Comments Father Mother Other Sister Social History Tobacco Use Types Packs/Day Years Used Date Smoking Tobacco: Former Smokeless Tobacco: Never Tobacco Cessation:Counseling Given: Not Answered Alcohol Use Standard Drinks/Week Comments No 0 (1 standard drink = 0.6 oz pur e alcohol) OASIS D0700: Social Isolation Answer Da te Recorded Frequency of experiencing loneliness or isolatio n Sometimes 09/25/2022 OASIS A1250: Transportation Answer Date Recorded Lack of Transportation (Medical) No 09/25/2022 Lack of Transportation (Non-Medical) No 09/25/2022 Patient Unable or Declines to Respond No 09/25/2022 OASIS B1300: Health Literacy Answer Richard e Recorded Frequency of needing help to read materials from doctor or pharmacy Never 09/25/2022 [facility] Utilities Answer Date Recorded In the past 12 months has th e [employer], or water [employer] threatened to shut off services in your home? No 04/19/2025 Humiliation, Afraid, Rape, and Kick questionnair e Answer Date Recorded Within the last year, have y ou been afraid of your partner or ex-partner? No 11/24/2024 Within the last year, have y ou been humiliated or emotionally abused in other ways by your partner or ex-partner? No Within the last year, have y ou been kicked, hit, slapped, or otherwise physically hurt by your partner or ex-partner? No 11/24/2024 Within the last year, have y ou been raped or forced to have any kind of sexual activity by your partner or ex-partner? No 11/24/2024 Social Connection and Isolation Panel Answer Date Recorded In a typical week, how many times do you talk on the phone with family, friends, or neighbors? More than three times a week 04/19/2025 How often do you get togethe r with friends or relatives? More than three times a week 04/19/2025 How often do you attend chur or druze services? Never 04/19/2025 Do you belong to any clubs o r organizations such as advent groups, unions, fraternal or athletic groups, or school groups? No 04/19/2025 How often do you attend meet ings of the clubs or organizations you belong to? Never 04/19/2025 Are you , , di vorced, , never , or living with a partner? 04/19/2025 AUDIT-C Answer Date Recorded Q1: How often do you have a drink containing alcohol? Never 11/24/2024 Q2: How many drinks containi ng alcohol do you have on a typical day when you are drinking? Patient does not drink Q3: How often do you have si x or more drinks on one occasion? Never 11/24/2024 Overall Financial Resource Strain (CARDIA) Answe r Date Recorded How hard is it for you to pa y for the very basics like food, housing, medical care, and heating? Not hard at all 04/19/2025 PHQ-2 Answer Date Recorded PHQ-2 Total Score (If total score is 3 or more points, staff should administer the PHQ-9) 1 11/24/2024 [facility] - Occupational Stress Questionnaire Answer Date Recorded Do you feel stress - tense, restless, nervous, or anxious, or unable to sleep at night because your mind is troubled all the time - these days? To some extent 11/24/2024 Exercise Vital Sign Answer Date Recorde d On average, how many days pe r week do you engage in moderate to strenuous exercise (like a brisk walk)? 7 days 11/24/2024 On average, how many minutes do you engage in exercise at this level? 10 min 11/24/2024 Hunger Vital Sign Answer Date Recorded Within the past 12 months, y ou worried that your food would run out before you got the money to buy more. Sometimes true Within the past 12 months, t he food you bought just didn't last and you didn't have money to get more. Never true 02/2025 PRAPARE - Transportation Answer Date Re corded In the past 12 months, has l ack of transportation kept you from medical appointments or from getting medications? No 02/2025 In the past 12 months, has l ack of transportation kept you from meetings, work, or from getting things needed for daily living? No 04/19/2025 Housing Stability Vital Sign Answer Richard e Recorded In the last 12 months, was t here a time when you were not able to pay the mortgage or rent on time? No 11/04/2023 In the last 12 months, how many places have you lived? 1 11/04/2023 In the last 12 months, was t here a time when you did not have a steady place to sleep or slept in a fpc (including now)? No 11/04/2023 PHQ-9 Answer Date Recorded PHQ-9 Total Score 1 11/24/2024 Housing Stability Vital Sign Answer Richard e Recorded In the last 12 months, was t here a time when you were not able to pay the mortgage or rent on time? No 04/19/2025 In the past 12 months, how m any times have you moved where you were living? 0 04/19/2025 At any time in the past 12 m [facility], were you homeless or living in a fpc (including now)? No 04/19/2025 Personal Safety Answer Date Recorded Have you ever been in or are you currently in a harmful physical or emotional relationship or is someone making you feel afraid or unsafe? Denies 04/18/2025 Education Answer Date Recorded What is the highest level of school you have completed or the highest degree you have received? 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 [employer] Gender Identity Not on file Sexual Orientation Not on file Obstetrics History Last Filed Vital Signs Vital Sign Reading Time Taken Comments Blood Pressure 130/54 04/22/2025 3:00 PM CDT Pulse 76 04/22/2025 3:00 PM CDT Temperature 35.8 C (96.5 F) 04/22/2025 3:00 PM CDT Respiratory Rate 16 04/22/2025 3:00 PM CDT Oxygen Saturation 98% 04/22/2025 3:00 PM CDT Inhaled Oxygen Concentration - - Weight 144.2 kg (317 lb 14.5 oz) 04/22/2025 5:02 AM CDT Height 180.3 cm (5' 11) 04/18/2025 6:41 PM CDT Body Mass Index 44.34 04/18/2025 6:41 PM CDT Plan of Treatment Health Maintenance Due Date Last Done Comments Albumin Creatinine Ratio, Urine 1965 Breast Cancer Screening-Mammogram 1965 Cervical Cancer Screening 1965 Foot Exam 1965 Hepatitis B Screening 1983 Regular Well Visit/Exam 18-64 1983 Pneumococcal vaccine <65 (2 of 2 - PCV) 08/30/2003 08/30/2002 Zoster Vaccine (1 of 2) 2015 DTaP/Tdap/Td Vaccine (2 - Td or Tdap) 04/01/2017 04/01/2007 Dilated Eye Exam 10/20/2020 10/20/2019, 05/20/2018 Influenza Vaccine (#1) 2025 , 07/28/2022, 08/11/2017 Hemoglobin A1C 09/29/2025 03/29/2025, 11/12, 05/29/2024, Additional history exists Depression Screening 11/24/2025 11/24/2024, 05/28/20 24 Lipid Panel 03/29/2026 03/29/2025, 05/15, 01/17/2024, Additional history exists eGFR 04/19/2026 04/19/2025, 01/2025, 03/30/2025, Additional history exists Colon Cancer Screening-Colonoscopy 03/08/2031 03/08/2021, 03/07/2021 Hepatitis C Screening Completed 12/17/2017, 014 Colon Cancer Screening-CT Colonography Discontinued 03/08/2021, 03/07/2021 Colon Cancer Screening-DNA Stool Discontinued 03/08/20 21, 03/07/2021 Colon Cancer Screening-FIT Discontinued 03/08/2021, Colon Cancer Screening-Sigmoidoscopy Discontinued 03/08/2021, 03/07/2021 Medical Devices Implanted Type Area Procedures Analyst Device Identifier Shelf Expiration Date Model / Serial / Lot [employer] [id number] Ariadne Delivery Kit Vena Cava Jugular Filter Embolization Nitinol Latex Free - [id number] Implanted:Qty: 1 on 01/15/2021 at [facility] [employer] 01/12/2024 [id number] / / [id number] [employer] [id number] Certas Inline Siphonguard Valve Shunt - [id number] Implanted:Qty: 1 on 01/16/2021 by Anatoly Bates MD at [facility] Right: Chest [employer] 04/13/2025 [id number] / / [id number] Procedures Procedure Name Priority Date/Time Associated Diagnosis Comments POCT GLUCOSE DEVICE Routine 04/22/2025 4 :41 PM CDT POCT GLUCOSE DEVICE Routine 04/22/2025 1 1:43 AM CDT POCT GLUCOSE DEVICE Routine 04/22/2025 7 :48 AM CDT POCT GLUCOSE DEVICE Routine 04/22/2025 1 :54 AM CDT POCT GLUCOSE DEVICE Routine 04/21/2025 8 :18 PM CDT POCT GLUCOSE DEVICE Routine 04/21/2025 5 :19 PM CDT POCT GLUCOSE DEVICE Routine 04/21/2025 1 1:39 AM CDT POCT GLUCOSE DEVICE Routine 04/21/2025 8 :17 AM CDT POCT GLUCOSE DEVICE Routine 04/21/2025 2 :03 AM CDT POCT GLUCOSE DEVICE Routine 04/20/2025 8 :31 PM CDT POCT GLUCOSE DEVICE Routine 04/20/2025 4 :37 PM CDT POCT GLUCOSE DEVICE Routine 04/20/2025 1 2:13 PM CDT POCT GLUCOSE DEVICE Routine 04/20/2025 8 :15 AM CDT POCT GLUCOSE DEVICE Routine 04/20/2025 2 :09 AM CDT POCT GLUCOSE DEVICE Routine 04/19/2025 7 :44 PM CDT POCT GLUCOSE DEVICE Routine 04/19/2025 4 :38 PM CDT POCT GLUCOSE DEVICE Routine 04/19/2025 1 2:11 PM CDT TRANSTHORACIC ECHO (TTE) COMPLETE W DOPPLER/CF WO CONTRAST Routine 04/19/2025 11:50 AM CDT POCT GLUCOSE DEVICE Routine 04/19/2025 8 :23 AM CDT POCT GLUCOSE DEVICE Routine 04/19/2025 3 :17 AM CDT EGFR Routine 04/19/2025 12:00 AM CDT DIFFERENTIAL AUTO Routine 04/19/2025 12: 00 AM CDT MAGNESIUM Routine 04/19/2025 12:00 AM CDT COMPREHENSIVE METABOLIC PANEL Routine 04/19/2025 12:00 AM CDT CBC WITH AUTO DIFFERENTIAL Routine 04/19/2025 12:00 AM CDT VITAMIN D 25 HYDROXY Add-On 04/18/2025 11:41 PM CDT PTH Add-On 04/18/2025 11:41 PM CDT BLOOD GAS, VENOUS STAT 04/18/2025 11: 40 PM CDT TROPONIN T HIGH-SENSITIVITY 6-HOUR Timed 04/18/2025 9:57 PM CDT CALCIUM,IONIZED, WHOLE BLOOD Add-On 04/18/2025 8:26 PM CDT TROPONIN T HIGH-SENSITIVITY 4-HR Timed 04/18/2025 8:26 PM CDT BLOOD CULTURE STAT 04/18/2025 8:26 PM CDT POCT GLUCOSE DEVICE Routine 04/18/2025 8 :16 PM CDT POCT GLUCOSE DEVICE Routine 04/18/2025 6 :43 PM CDT SEPSIS LACTATE WITH REFLEX STAT 04/18/2025 5:16 PM CDT TROPONIN T HIGH-SENSITIVITY 2-HOUR Timed 04/18/2025 5:16 PM CDT EGFR STAT 04/18/2025 3:42 PM CDT DIFFERENTIAL AUTO STAT 04/18/2025 3:4 2 PM CDT TROPONIN T HIGH-SENSITIVITY SERIES (BASELINE, 2HR, 4HR, 6HR) STAT 04/18/2025 3:42 PM CDT PROTIME-INR STAT 04/18/2025 3:42 PM CDT PRO B-TYPE NATRIURETIC PEPTIDE STAT 04/18/2025 3:42 PM CDT COMPREHENSIVE METABOLIC PANEL STAT 04/18/2025 3:42 PM CDT CBC WITH AUTO DIFFERENTIAL STAT 04/18/2025 3:42 PM CDT BLOOD CULTURE STAT 04/18/2025 3:[address] CHEST ABDOMEN PELVIS WO CONTRAST ED 04/18/2025 3:[address] HEAD WO CONTRAST ED 04/18/2025 3 :18 PM CDT URINALYSIS, MICROSCOPIC ONLY STAT 04/18/2025 2:51 PM CDT URINE CULTURE STAT 04/18/2025 2:51 PM CDT URINALYSIS AND REFLEX TO MICROSCOPIC AND CULTURE STAT 04/18/2025 2:51 PM CDT INFLUENZA A/B, RSV, AND COVID-19 PCR STAT 04/18/2025 2:50 PM CDT XR CHEST 1 VIEW ED 04/18/2025 2:47 PM CDT ECG 12-LEAD STAT 04/18/2025 2:33 PM CDT POCT GLUCOSE DEVICE Routine 03/30/2025 1 1:39 AM CDT POCT GLUCOSE DEVICE Routine 03/30/2025 8 :00 AM CDT EGFR Routine 03/30/2025 2:58 AM CDT DIFFERENTIAL AUTO Routine 03/30/2025 2:5 8 AM CDT CBC WITH AUTO DIFFERENTIAL Routine 03/30/2025 2:58 AM CDT COMPREHENSIVE METABOLIC PANEL Routine 03/30/2025 2:58 AM CDT POCT GLUCOSE DEVICE Routine 03/30/2025 2 :07 AM CDT POCT GLUCOSE DEVICE Routine 03/29/2025 9 :13 PM CDT POCT GLUCOSE DEVICE Routine 03/29/2025 4 :51 PM CDT POCT GLUCOSE DEVICE Routine 03/29/2025 1 1:16 AM CDT POCT GLUCOSE DEVICE Routine 03/29/2025 7 :32 AM CDT POCT GLUCOSE DEVICE Routine 03/29/2025 2 :39 AM CDT EGFR Routine 03/29/2025 2:17 AM CDT DIFFERENTIAL AUTO Routine 03/29/2025 2:1 7 AM CDT FERRITIN Routine 03/29/2025 2:17 AM CDT HEMOGLOBIN A1C Routine 03/29/2025 2:17 AM CDT LIPID PANEL Routine 03/29/2025 2:17 AM CDT CBC WITH AUTO DIFFERENTIAL Routine 03/29/2025 2:17 AM CDT COMPREHENSIVE METABOLIC PANEL Routine 03/29/2025 2:17 AM CDT POCT GLUCOSE DEVICE Routine 03/28/2025 7 :46 PM CDT POCT GLUCOSE DEVICE Routine 03/28/2025 5 :06 PM CDT POCT GLUCOSE DEVICE Routine 03/28/2025 1 2:09 PM CDT POCT GLUCOSE DEVICE Routine 03/28/2025 7 :32 AM CDT POCT GLUCOSE DEVICE Routine 03/28/2025 4 :10 AM CDT MANUAL DIFFERENTIAL Routine 03/28/2025 2 :34 AM CDT CBC WITH AUTO DIFFERENTIAL Routine 03/28/2025 2:34 AM CDT BLOOD CULTURE Routine 03/27/2025 11:43 PM CDT BLOOD CULTURE Routine 03/27/2025 11:43 PM CDT POCT GLUCOSE DEVICE Routine 03/27/2025 1 1:41 PM CDT POCT GLUCOSE DEVICE Routine 03/27/2025 8 :21 PM CDT POCT GLUCOSE DEVICE Routine 03/27/2025 4 :50 PM CDT POCT GLUCOSE DEVICE Routine 03/27/2025 1 2:30 PM CDT POCT GLUCOSE DEVICE Routine 03/27/2025 9 :01 AM CDT TRANSFUSE PLASMA Timed 03/27/2025 8:30 AM CDT TRANSFUSE RED BLOOD CELLS Timed 03/27/2025 4:56 AM CDT HEMOGLOBIN AND HEMATOCRIT STAT 03/27/2025 4:[address] CHEST ABDOMEN PELVIS WO CONTRAST ED 03/27/2025 4:[address] HEAD WO CONTRAST ED 03/27/2025 4 :38 AM CDT TRANSFUSE PLASMA Timed 03/27/2025 1:24 AM CDT XR CHEST 1 VIEW ED 03/27/2025 1:23 AM CDT EGFR STAT 03/27/2025 1:21 AM CDT MAGNESIUM Routine 03/27/2025 1:21 AM CDT RENAL FUNCTION PANEL STAT 03/27/2025 1:21 AM CDT PRO B-TYPE NATRIURETIC PEPTIDE Add-On 03/27/2025 1:21 AM CDT POCT GLUCOSE DEVICE Routine 03/27/2025 1 :16 AM CDT PREPARE RBC Timed 03/27/2025 1:15 AM CDT PREPARE PLASMA Routine 03/27/2025 1:08 AM CDT T4, FREE Add On 03/27/2025 12:25 AM CDT THYROID FUNCTION CASCADE Add-On 03/27/2025 12:[address] CRITICAL CARE ILL/INJURED PATIENT INIT 30-74 MIN Routine 03/26/2025 11:[address] CRITICAL CARE ILL/INJURED PATIENT INIT 30-74 MIN Routine 03/26/2025 11:19 PM CDT PREPARE PLASMA STAT 03/26/2025 10:20 PM CDT TRANSFUSE RED BLOOD CELLS Timed 03/26/2025 10:13 PM CDT PREPARE RBC STAT 03/26/2025 8:54 PM CDT BLOOD CULTURE STAT 03/26/2025 8:38 PM CDT BLOOD CULTURE STAT 03/26/2025 8:22 PM CDT CROSSMATCH STAT 03/26/2025 8:01 PM CDT ANTIBODY SCREEN STAT 03/26/2025 8:01 PM CDT ABO/RH STAT 03/26/2025 8:01 PM CDT TYPE AND SCREEN STAT 03/26/2025 8:01 PM CDT URINALYSIS, MICROSCOPIC ONLY STAT 03/26/2025 8:00 PM CDT URINE CULTURE STAT 03/26/2025 8:00 PM CDT URINALYSIS AND REFLEX TO MICROSCOPIC AND CULTURE STAT 03/26/2025 8:00 PM CDT IRON PROFILE W/ IBC Add-On 03/26/2025 7 :49 PM CDT SEPSIS LACTATE WITH REFLEX STAT 03/26/2025 7:49 PM CDT RETICULOCYTES Add-On 03/26/2025 7:47 PM CDT EGFR STAT 03/26/2025 7:47 PM CDT DIFFERENTIAL AUTO STAT 03/26/2025 7:4 7 PM CDT COMPREHENSIVE METABOLIC PANEL STAT 03/26/2025 7:47 PM CDT CBC WITH AUTO DIFFERENTIAL STAT 03/26/2025 7:47 PM CDT POCT GLUCOSE DEVICE Routine 03/26/2025 7 :41 PM CDT ECG 12-LEAD STAT 03/26/2025 7:39 PM CDT COLONOSCOPY 03/08/2021 3:39 PM CDT HEPATITIS C ANTIBODY STAT 12/17/2017 2:35 PM CDT from Last 3 Months or Most Recently Relevant to Health Maintenance Results * POCT glucose (04/22/2025 4:41 PM CDT) Glucose, POC 180 70 - 199 mg/dL Blood 04/22/2025 4:41 PM CDT 04/22/2025 4:41 PM CDT us Demar Garcia DO LAB POCT ORDERABLES - DEVICE Final Result [facility] ([place]ZLET) 1 [facility] Department [place] [address] * (ABNORMAL) POCT glucose (04/22/2025 11:43 AM CDT) Glucose, POC 209(H) 70 - 199 mg/dL Blood 04/22/2025 11:4 3 AM CDT 04/22/2025 11:43 AM CDT Demar Garcia DO LAB POCT ORDERABLES - DEVICE Final Result Performing Organization Address City/[facility]/ZIP Co de Phone Number MATY JAIMES (SCAR) 1 [facility] [place] [address] * (ABNORMAL) POCT glucose (04/22/2025 7:48 AM CDT) Glucose, POC 208(H) 70 - 199 mg/dL Blood 04/22/2025 7:48 AM CDT 04/22/2025 7:48 AM CDT Demar Garcia DO LAB POCT ORDERABLES - DEVICE Final Result Performing Organization Address City/[facility] Co de Phone Number MATY JAIMES (HAZLET) 1 [facility] [place] [address] * (ABNORMAL) POCT glucose (04/22/2025 1:54 AM CDT) Glucose, POC 206(H) 70 - 199 mg/dL Blood 04/22/2025 1:54 AM CDT 04/22/2025 1:54 AM CDT Demar Yared Garcia DO LAB POCT ORDERABLES - DEVICE Final Result Performing Organization Address City/[facility] Co de Phone Number [facility] (SCAR) 1 [facility] [place] [address] * (ABNORMAL) POCT glucose (04/21/2025 8:18 PM CDT) Glucose, POC 255(H) 70 - 199 mg/dL Blood 04/21/2025 8:18 PM CDT 04/21/2025 8:18 PM CDT Demar Garcia DO LAB POCT ORDERABLES - DEVICE Final Result MATY JAIMES ([place]) 1 [facility] [place] [address] * (ABNORMAL) POCT glucose (04/21/2025 5:19 PM CDT) Glucose, POC 212(H) 70 - 199 mg/dL Blood 04/21/2025 5:19 PM CDT 04/21/2025 5:19 PM CDT Demar Vail Jose DO LAB POCT ORDERABLES - DEVICE Final Result Performing Organization Address [facility] Co de Phone Number MATY JAIMES (HAZLET) 1 [facility] [place] [address] * (ABNORMAL) POCT glucose (04/21/2025 11:39 AM CDT) Glucose, POC 252(H) 70 - 199 mg/dL Comment:Glu2: RN/MD Notified Blood 04/21/2025 11:3 9 AM CDT 04/21/2025 11:39 AM CDT Demar Garcia DO LAB POCT ORDERABLES - DEVICE Final Result MATY JAIMES (SCAR) 1 [facility] [place] [address] * POCT glucose (04/21/2025 8:17 AM CDT) Glucose, POC 192 70 - 199 mg/dL Blood 04/21/2025 8:17 AM CDT 04/21/2025 8:17 AM CDT Demar Garcia DO LAB POCT ORDERABLES - DEVICE Final Result MATY JAIMES ([place]ZLET) 1 [facility] [place] [address] * POCT glucose (04/21/2025 2:03 AM CDT) Glucose, POC 175 70 - 199 mg/dL Blood 04/21/2025 2:03 AM CDT 04/21/2025 2:03 AM CDT Demar Yared Garcia DO LAB POCT ORDERABLES - DEVICE Final Result Performing Organization Address [facility]/ZIP Co de Phone Number MATY JAIMES (HAZLET) 1 [facility] [place] [address] * POCT glucose (04/20/2025 8:31 PM CDT) Glucose, POC 186 70 - 199 mg/dL Blood 04/20/2025 8:31 PM CDT 04/20/2025 8:31 PM CDT Demar Garcia DO LAB POCT ORDERABLES - DEVICE Final Result Performing Organization Address [facility]/ZIP Co de Phone Number MATY JAIMES (HAZLET) 1 [facility] [place] [address] * POCT glucose (04/20/2025 4:37 PM CDT) Glucose, POC 179 70 - 199 mg/dL Blood 04/20/2025 4:37 PM CDT 04/20/2025 4:37 PM CDT Demar Garcia DO LAB POCT ORDERABLES - DEVICE Final Result MATY JAIMES ([place]ZLET) 1 [facility] [place] [address] * (ABNORMAL) POCT glucose (04/20/2025 12:13 PM CDT) Glucose, POC 251(H) 70 - 199 mg/dL Blood 04/20/2025 12:1 3 PM CDT 04/20/2025 12:13 PM CDT Demar Garcia DO LAB POCT ORDERABLES - DEVICE Final Result Performing Organization Address [facility] Co de Phone Number MATY JAIMES (SCAR) 1 [facility] [place] [address] * POCT glucose (04/20/2025 8:15 AM CDT) Glucose, POC 184 70 - 199 mg/dL Blood 04/20/2025 8:1 5 AM CDT 04/20/2025 8:15 AM CDT Demar Vail Jose DO LAB POCT ORDERABLES - DEVICE Final Result Performing Organization Address [facility] de Phone Number MATY JAIMES (SCAR) 1 [facility] [place] [address] * POCT glucose (04/20/2025 2:09 AM CDT) Glucose, POC 127 70 - 199 mg/dL Blood 04/20/2025 2:09 AM CDT 04/20/2025 2:09 AM CDT Demar Garcia DO LAB POCT ORDERABLES - DEVICE Final Result Performing Organization Address [facility] Co de Phone Number MATY JAIMES (SCAR) 1 [facility] [place] [address] * (ABNORMAL) POCT glucose (04/19/2025 7:44 PM CDT) Glucose, POC 204(H) 70 - 199 mg/dL Blood 04/19/2025 7:44 PM CDT 04/19/2025 7:44 PM CDT Demar Garcia DO LAB POCT ORDERABLES - DEVICE Final Result Performing Organization Address City/[facility]/ZIP Co de Phone Number MATY HutchisonHAZLET) 1 [place] [address] * POCT glucose (04/19/2025 4:38 PM CDT) Glucose, POC 187 70 - 199 mg/dL Blood 04/19/2025 4:38 PM CDT 04/19/2025 4:38 PM CDT Demar Garcia DO LAB POCT ORDERABLES - DEVICE Final Result Performing Organization Address [facility] Co de Phone Number MATY HutchisonHAZLET) 1 [place] [address] * POCT glucose (04/19/2025 12:11 PM CDT) Glucose, POC 162 70 - 199 mg/dL Blood 04/19/2025 12:1 1 PM CDT 04/19/2025 12:11 PM CDT Demar Garcia DO LAB POCT ORDERABLES - DEVICE Final Result Performing Organization Address City/[facility] Co de Phone Number MATY JAIMES (HAZLET) [address] [place] [id number] * TRANSTHORACIC ECHO (TTE) COMPLETE W DOPPLER/CF WO CONTRAST (04/19/2025 11:50 AM CDT) Estimated EF 35 % CONS SCIMAGE Anatomical Region Laterality Modality Ultrasound 04/19/2025 11:4 6 AM CDT Narrative 04/19/2025 1:[address] [address] Echocardiogram Report Patient Name: OPAL ALEXANDER : 1965 Study Date: 04/19/2025 11:46:15 AM Gender: F Tech: ULISES Location: [id number] Ref Provider: GAVIOTA MASTERS Height(Cm): BSA: Weight(Kg): Quality: Adequate Order Provider: GAVIOTA MASTERS PROCEDURES: Echocardiographic Report: Transthoracic echocardiogram with complete 2D, M-Mode, and color Doppler examination. INDICATIONS: Elevated troponin with prior history of moderate LV systolic dysfunction in 2023. - MEASUREMENTS: 2D/MM Value Range Doppler Value Range EF Teich MM 28.5 % [ 54.0 - 74.0 ] PATRICIA Vmax 3.02 cm2 Estimated EF 35 % AV Mean PG 3 mmHg LVIDd MM 5.16 cm [ 3.80 - 5.20 ] AV Peak Jonathan 1.09 m/s [ 1.00 - 1.70 ] LVIDs MM 4.47 cm [ 2.20 - 3.50 ] AV VTI 23.59 cm LVPWd MM 1.30 cm [ 0.60 - 0.90 ] LVOT Diam 2.22 cm IVSd MM 1.10 cm [ 0.60 - 0.90 ] LVOT Peak Jonathan 0.85 m/s [ 0.70 - 1.10 ] LA Dimension MM 3.60 cm [ 2.70 - 3.80 ] LVOT VTI 19.76 cm AoR Diam MM 3.37 cm [ 2.70 - 3.70 ] MV E Peak Jonathan 0.84 m/s [ 0.60 - 1.30 ] MV A Peak Jonathan 1.01 m/s [ 1.00 - 1.20 ] MV Mean PG 2 mmHg MV PHT 49 msec [ 20 - 100 ] MVA 4.50 MV Decel Time 169 msec [ 104 - 258 ] PV Peak Jonathan 0.89 m/s [ 0.40 - 0.80 ] RVSP 8.00 mmHg [ 10.00 - 36.00 ] E` 0.04 m/s E/E` 19.44 [ <= 10.00 ] PA Pressure 8.00 mmHg [ 10.00 - 36.00 ] 2D/MM Value Range Doppler Value Range - FINDINGS: Atrial Septum: The atrial septum is not well visualized. Left Ventricle: Normal left ventricular size. Normal left ventricular wall thickness. Moderate global left ventricular systolic dysfunction. Impaired diastolic relaxation Grade I. Ejection Fraction is estimated to be 35 %. These segments of the LV are hypokinetic apical segment, apical anterior segment, apical lateral segment and apical septum segment. Left Atrium: The left atrium is normal in size. Right Ventricle: Normal right ventricular size. Normal right ventricular systolic function. Right Atrium: The right atrium is normal in size. Aortic Valve: Normal structure of the aortic valve. Mitral Valve: Normal structure of the mitral valve. Pulmonic Valve: Pulmonic valve not well visualized. Tricuspid Valve: Normal structure of the tricuspid valve. Right Ventricular Systolic Pressure could not be estimated due to inadequate visualization of TR jet. Pericardium: Normal pericardium with no significant pericardial effusion. Aorta: Normal aortic root. IVC: Normal size and normal respiratory collapse consistent with normal right atrial pressure (<5 mmHg). CONCLUSIONS: Moderate global left ventricular systolic dysfunction. Impaired diastolic relaxation Grade I. Ejection Fraction is estimated to be 35 %. These segments of the LV are hypokinetic apical segment, apical anterior segment, apical lateral segment and apical septum segment. Normal right ventricular size. Normal right ventricular systolic function. Normal structure of the mitral valve. Normal structure of the aortic valve. Normal structure of the tricuspid valve. Right Ventricular Systolic Pressure could not be estimated due to inadequate visualization of TR jet. Electronically Signed By: Leon Boyd MD Jasmina 04/19/2025 1:17:21 PM CDT Procedure Note Leon Boyd MD - 04/19/[address] [address] Echocardiogram Report Patient Name: OPAL ALEXANDER : 1965 Study Date: 04/19/2025 11:46:15 AM Gender: F Tech: ULISES Location: [id number] Ref Provider: GAVIOTA MASTERS Height(Cm): BSA: Weight(Kg): Quality: Adequate Order Provider: GAVIOTA MASTERS PROCEDURES: Echocardiographic Report: Transthoracic echocardiogram with complete 2D, M-Mode, and color Dopplerexamination. INDICATIONS: Elevated troponin with prior history of moderate LV systolic dysfunctionin 2023. - MEASUREMENTS: 2D/MM Value Range Doppler ValueRange EF Teich MM 28.5 % [ 54.0 - 74.0 ] PATRICIA Vmax 3.02cm2 Estimated EF 35 % AV Mean PG 3 mmHg LVIDd MM 5.16 cm [ 3.80 - 5.20 ] AV Peak Jonathan 1.09 m/s[ 1.00 - 1.70 ] LVIDs MM 4.47 cm [ 2.20 - 3.50 ] AV VTI 23.59cm LVPWd MM 1.30 cm [ 0.60 - 0.90 ] LVOT Diam 2.22cm IVSd MM 1.10 cm [ 0.60 - 0.90 ] LVOT Peak Jonathan 0.85 m/s[ 0.70 - 1.10 ] LA Dimension MM 3.60 cm [ 2.70 - 3.80 ] LVOT VTI 19.76cm AoR Diam MM 3.37 cm [ 2.70 - 3.70 ] MV E Peak Jonathan 0.84 m/s[ 0.60 - 1.30 ] MV A Peak Jonathan 1.01 m/s [ 1.00 - 1.20 ] MV Mean PG 2 mmHg MV PHT 49 msec [ 20 - 100 ] MVA 4.50 MV Decel Time 169 msec [ 104 - 258 ] PV Peak Jonathan 0.89 m/s [ 0.40 - 0.80 ] RVSP 8.00 mmHg [ 10.00 - 36.00 ] E` 0.04 m/s E/E` 19.44 [ <= 10.00 ] PA Pressure 8.00 mmHg [ 10.00 - 36.00 ] 2D/MM Value Range Doppler ValueRange - FINDINGS: Atrial Septum: The atrial septum is not well visualized. Left Ventricle: Normal left ventricular size. Normal left ventricular wall thickness.Moderate global left ventricular systolic dysfunction. Impaired diastolic relaxation GradeI. Ejection Fraction is estimated to be 35 %. These segments of the LV are hypokineticapical segment, apical anterior segment, apical lateral segment and apical septumsegment. Left Atrium: The left atrium is normal in size. Right Ventricle: Normal right ventricular size. Normal right ventricular systolicfunction. Right Atrium: The right atrium is normal in size. Aortic Valve: Normal structure of the aortic valve. Mitral Valve: Normal structure of the mitral valve. Pulmonic Valve: Pulmonic valve not well visualized. Tricuspid Valve: Normal structure of the tricuspid valve. Right Ventricular SystolicPressure could not be estimated due to inadequate visualization of TR jet. Pericardium: Normal pericardium with no significant pericardial effusion. Aorta: Normal aortic root. IVC: Normal size and normal respiratory collapse consistent with normal rightatrial pressure (<5 mmHg). CONCLUSIONS: Moderate global left ventricular systolic dysfunction. Impaired diastolicrelaxation Grade I. Ejection Fraction is estimated to be 35 %. These segments of theLV are hypokinetic apical segment, apical anterior segment, apical lateralsegment and apical septum segment. Normal right ventricular size. Normal right ventricular systolicfunction. Normal structure of the mitral valve. Normal structure of the aortic valve. Normal structure of the tricuspid valve. Right Ventricular SystolicPressure could not be estimated due to inadequate visualization of TR jet. Electronically Signed By: Leon Boyd MD [facility] 04/19/2025 1:17:21 PM CDT us Gaviota Masters MD CV ECHO PROCEDURES Final Resu lt * POCT glucose (04/19/2025 8:23 AM CDT) Glucose, POC 190 70 - 199 mg/dL Blood 04/19/2025 8:2 3 AM CDT 04/19/2025 8:23 AM CDT us Demar Vail Jose LAB POCT ORDERABLES - DEVICE Final Result MATY JAIMES (HAZLET) 1 [facility] [place] [address] * POCT glucose (04/19/2025 3:17 AM CDT) Glucose, POC 186 70 - 199 mg/dL Blood 04/19/2025 3:17 AM CDT 04/19/2025 3:17 AM CDT Loree Hdz MD LAB POCT ORDERABLES - DEVICE F inal Result Performing Organization Address City/[facility]/ZIP Co de Phone Number MATY JAIMES (HAZLET) 1 [facility] [place] [address] * (ABNORMAL) eGFR (04/19/2025 12:00 AM CDT) eGFR 57(L) >=60 mL/min/1. 73 m2 Comment: Interpretive Data Reference Interval Normal >/= 90 mL/min/1.73m2 Mildly decreased* 60 - 89 mL/min/1.73m2 Mildly to moderately decreased 45 - 59 mL/min/1.73m2 Moderately to severely decreased 30 - 44 mL/min/1.73m2 Severely decreased 15 - 29 mL/min/1.73m2 Kidney Failure < 15 mL/min/1.73m2 *Relative to young adult level Estimated glomerular filtration rate is determined by the 2020 CKD-EPI equation recommended by the National Kid[employer] (A Unifying Approach to GFR Estimation: Recommendations of the NKF-ASK Task Force on Reassessing the Inclusion of Race in Diagnosing Kidney Disease, JASN 202). The CKD-EPI equation should not be used for patients with unstable renal function and has not been validated in children and those over 70. Current interpretive data was last reviewed 2021. Blood 04/19/2025 04/19/2025 1:5 6 AM CDT Kathrine Pichardo MD LAB BLOOD ORDERABLE S Final Result MATY JAIMES ([place]LET) 1 [facility] Department [place] [address] * (ABNORMAL) Differential, auto (04/19/2025 12:00 AM CDT) Neutrophil abs 3.54 1.50 - 6.50 K/cumm Imm gran abs 0.15(H) 0.00 - 0.10 K/cumm [facility] ([place]) Lymphocyte abs 1.80 0.80 - 3.30 K/cumm [facility] ([place]) Monocyte abs 0.93(H) 0.20 - 0.80 K/cumm [facility] ([place]) Eosinophil abs 0.14 0.00 - 0.50 K/cumm [facility] ([place]) Basophil abs 0.08 0.00 - 0.10 K/cumm [facility] ([place]) Neutrophil pct 53.3 % [facility] ([place]) Comment: Interpretive Data Percent cell count reference ranges are not reported, since discordance with absolute values may lead to misinterpretation of CBC data. Current Interpretive Data was last revised on 2017. Imm gran pct 2.3 % [facility] ([place]) Comment: Interpretive Data Percent cell count reference ranges are not reported, since discordance with absolute values may lead to misinterpretation of CBC data. Current Interpretive Data was last revised on 2017. Lymphocyte pct 27.1 % [facility] ([place]) Comment: Interpretive Data Percent cell count reference ranges are not reported, since discordance with absolute values may lead to misinterpretation of CBC data. Current Interpretive Data was last revised on 2017. Monocyte pct 14.0 % [facility] ([place]) Comment: Interpretive Data Percent cell count reference ranges are not reported, since discordance with absolute values may lead to misinterpretation of CBC data. Current Interpretive Data was last revised on 2017. Eosinophil pct 2.1 % [facility] ([place]) Comment: Interpretive Data Percent cell count reference ranges are not reported, since discordance with absolute values may lead to misinterpretation of CBC data. Current Interpretive Data was last revised on 2017. Basophil pct 1.2 % [facility] (SCAR) Comment: Interpretive Data Percent cell count reference ranges are not reported, since discordance with absolute values may lead to misinterpretation of CBC data. Current Interpretive Data was last revised on 2017. Blood 04/19/2025 04/19/2025 1:5 6 AM CDT us Kathrine Pichardo MD LAB BLOOD ORDERABLE S Final Result [facility] ([place]) 1 [facility] Department [place] [address] * (ABNORMAL) CBC with auto differential (04/19/2025 12:00 AM CDT) WBC 6.64 3.80 - 9.90 K/cumm Hgb 10.1(L) 11.9 - 15.5 g/dL [facility] ([place]) Hct 33.4(L) 35.6 - 45.5 % [facility] ([place]) Plt 284 150 - 400 K/cumm [facility] ([place]) MPV 9.5 9.1 - 12.3 fL [facility] ([place]) RBC 3.66(L) 3.90 - 5.20 M/cumm [facility] ([place]) MCV 91.3 81.3 - 96.4 fL [facility] ([place]) MCH 27.6 27.1 - 33.3 pg [facility] ([place]) MCHC 30.2(L) 32.3 - 35.7 g/dL [facility] ([place]) RDW CV 16.3(H) 11.1 - 14.9 % [facility] ([place]) RDW SD 54.8(H) 35.7 - 48.1 fL [facility] ([place]) NRBC abs 0.00 0.00 - 0.01 K/cumm [facility] ([place]) Blood 04/19/2025 04/19/2025 1:5 6 AM CDT Kathrine Pichardo MD LAB BLOOD ORDERABLE S Final Result MATY JAIMES (SCAR) 1 [facility] Department [place] [address] * Magnesium (04/19/2025 12:00 AM CDT) Magnesium 2.1 1.4 - 2.5 mg/dL [facility] (SCAR) Blood 04/19/2025 04/19/2025 1:5 6 AM CDT us Sasha Simmons MD LAB BLOOD ORDERABLES Fi nal Result MATY JAIMES (SCAR) 1 [facility] [place] [address] * (ABNORMAL) Comprehensive metabolic panel (04/19/2025 12:00 AM CDT) Sodium 139 135 - 145 mmol/L [facility] (SCAR) Potassium, pl 4.8 3.3 - 4.9 mmol/L [facility] ([place]) Chloride 106 97 - 110 mmol/L [facility] ([place]) CO2 23 22 - 32 mmol/L [facility] ([place]) Anion gap 10 2 - 15 mmol/L [facility] ([place]) BUN 38(H) 6 - 25 mg/dL [facility] Creatinine 1.11(H) 0.60 - 1.10 mg/dL [facility] ([place]) Glucose 210(H) 70 - 199 mg/dL [facility] (SCAR) Comment: Interpretive Data Fasting glucose >/= 126 mg/dl is diagnostic for diabetes. Fasting is defined as no caloric intake for at least 8 hours. Fasting glucose between 100 mg/dl to 125 mg/dl is diagnostic of prediabetes. In a patient with classic symptoms of hyperglycemia or hyperglycemic crisis, a random glucose >/= 200 mg/dl is diagnostic for diabetes. In the absence of unequivocal hyperglycemia, results should be confirmed by repeat testing. The classification and Diagnosis of Diabetes Diabetes Care 2021; 46: S19-S40. Current interpretive data was last revised 2022. Calcium 10.1 8.5 - 10.3 mg/dL [facility] ([place]) Bilirubin, total 0.2 0.1 - 1.2 mg/dL [facility] ([place]) Protein, pl 6.3(L) 6.5 - 8.5 g/dL [facility] ([place]) Albumin 2.6(L) 3.5 - 5.0 g/dL [facility] ([place]) Alk phos 85 40 - 130 Units/L [facility] ([place]) ALT <5(L) 7 - 45 Units/L [facility] ([place]) AST 9(L) 10 - 45 Units/L [facility] ([place]) Blood 04/19/2025 04/19/2025 1:5 6 AM CDT us Kathrine Pichardo MD LAB BLOOD ORDERABLE S Final Result [facility] (SCAR) 1 [facility] [place] [address] * (ABNORMAL) Vitamin D 25 hydroxy (04/18/2025 11:41 PM CDT) Pathologist [facility] Vitamin D 25-OH <10(L) 30 - 80 ng/mL [facility] (SCAR) Blood 04/18/2025 11:4 1 PM CDT 04/19/2025 2:37 PM CDT us Demar Garcia DO LAB BLOOD ORDERABLES F inal Result [facility] ([place]) 1 [facility] [place] [address] * PTH (04/18/2025 11:41 PM CDT) PTH 54 18 - 58 pg/mL [facility] ([facility] Blood 04/18/2025 11:4 1 PM CDT 04/19/2025 2:37 PM CDT Demar Vail Jose DO LAB BLOOD ORDERABLES F inal Result MATY JAIMES (HAZLET) 1 [facility] [place] [address] * Blood gas, venous (04/18/2025 11:40 PM CDT) pH, Venous 7.34 7.32 - 7.43 PCO2, Venous 44 40 - 50 mmHg [facility] ([place]) PO2, Venous 63 mmHg [facility] A (HAZLET) Comment: Interpretive Data No reference range established. Current interpretive data was last revised 2017. HCO3 Venous, Calculated 23 20 - 30 mmol/L [facility] ([place]) BE, venous -2 mmol/L [facility] ([place]) Comment: Interpretive Data No Reference Range Established Current Interpretive Data was last revised on 2017. Blood 04/18/2025 11:4 0 PM CDT 04/18/2025 11:44 PM CDT Sasha Simmons MD LAB BLOOD ORDERABLES Fi nal Result Performing Organization Address City/[facility]/ZIP Co de Phone Number MATY JAIMES (HAZLET) 1 [facility] [place] [address] * (ABNORMAL) Troponin T high-sensitivity 6-hour (04/18/2025 9:57 PM CDT) Trop T hs 76(H) <=14 ng/L [facility] (HAZLET) Comment: Interpretive Data For further hscTnT resources including the diagnostic algorithm and an aid in interpretation, copy and paste this link: https://nrl.testcatalog.org/show/hsTrop Current Interpretive Data last revised 2020. Trop T hs delta -22(C) ng/L [facility] ([place]) Comment:Critical Result call ed by [email or web address] at 2025-04-19 00:13:57. Result Read Back by donavan hayes Trop T hs interp Significa nt(C) [facility] ([place]) Comment:Critical Result call ed by [email or web address] at 2025-04-19 00:13:57. Result Read Back by donavan hayes Blood 04/18/2025 9:57 PM CDT 04/18/2025 9:59 PM CDT Kathrine Pichardo MD LAB BLOOD ORDERABLE S Final Result Performing Organization Address City/[facility]/ZIP Co de Phone Number MATY JAIMES (HAZLET) 1 [facility] [place] [address] * (ABNORMAL) Troponin T high-sensitivity 4-hour (04/18/2025 8:26 PM CDT) Trop T hs 78(H) <=14 ng/L [facility] ([place]) Comment: Interpretive Data For further hscTnT resources including the diagnostic algorithm and an aid in interpretation, copy and paste this link: https://nrl.testcatalog.org/show/hsTrop Current Interpretive Data last revised 2020. Trop T hs delta -20(C) ng/L [facility] ([place]) Comment:Critical Result call ed by [id number] at 2025-04-18 22:06:33. Result Read Back by ROSCOE COX Trop T hs interp Significa nt(C) [facility] ([place]) Comment:Critical Result call ed by [email or web address] at 2025-04-18 22:06:33. Result Read Back by ROSCOE COX Blood 04/18/2025 8:2 6 PM CDT 04/18/2025 8:29 PM CDT Kathrine Pichardo MD LAB BLOOD ORDERABLE S Final Result Performing Organization Address City/[facility]/ZIP Co de Phone Number MATY JAIMES (SCAR) 1 [facility] [place] [address] * (ABNORMAL) Calcium, ionized, whole blood (04/18/2025 8:26 PM CDT) Ca, ionized, bld 5.61(H) 4.50 - 5.10 mg/dL Blood 04/18/2025 8:26 PM CDT 04/18/2025 8:29 PM CDT us Sasha Simmons MD LAB BLOOD ORDERABLES Fi nal Result DANAYBECCA THEODORE (HAZLET) 1 [facility] Department [place] [address] * Blood culture Blood Peripheral (04/18/2025 8:26 PM CDT) Report Final Report: No growth Comment:Testing performed by : [facility], [address] [place]., [address] Blood (Peripheral) 04/18/2025 8:26 PM CDT 04/19/2025 12:18 AM CDT Narrative MATY JAIMES (SCAR) - 04/23/2025 7:00 AM CDT From a different site than #1. Draw Blood cultures before administration of Antibiotics Collection->Peripheral 1. Blood cultures are incubated for 4 days on a continuously monitored blood culture system. The first report of a negative culture is issued within 24 hours of receipt of the specimen in the laboratory. 2. Positive culture results are reported as soon as they are detected. 3. The most important factor for detection of microbes in the setting of bloodstream infection is the volume of blood submitted for culture. Failure to collect an optimal blood volume can result in false negative blood cultures. 4. For pediatric patients, the recommended blood volume to collect follows a weight based strategy. See the electronic test catalog for collection instructions. 5. For positive blood cultures, a rapid molecular test may be performed for organism identification using the rosanna ePlex blood culture identification panel for gram positive (BCID-GP) and gram negative (BCID-GN) organisms. This nucleic acid amplification test detects microbial DNA in positive blood culture broth. This assay has been cleared by the [place] Food and Drug Administration and its performance characteristics have been verified by the [facility]. For questions about this culture, contact the Microbiology Laboratory at [phone]. Interpretive data was last revised on 24. Sasha Simmons MD LAB MICROBIOLOGY - GENE RAL ORDERABLES Final Result Performing Organization Address City/[facility]/ZIP Co de Phone Number MATY JAIMES (HAZLET) 1 [facility] [place] [address] * POCT glucose (04/18/2025 8:16 PM CDT) Glucose, POC 185 70 - 199 mg/dL Blood 04/18/2025 8:16 PM CDT 04/18/2025 8:16 PM CDT Loree Hdz MD LAB POCT ORDERABLES - DEVICE F inal Result Performing Organization Address [facility] Co de Phone Number MATY JAIMES (HAZLET) 1 [facility] [place] [address] * POCT glucose (04/18/2025 6:43 PM CDT) Glucose, POC 175 70 - 199 mg/dL Blood 04/18/2025 6:43 PM CDT 04/18/2025 6:43 PM CDT Loree Hdz MD LAB POCT ORDERABLES - DEVICE F inal Result Performing Organization Address [facility] Co de Phone Number MATY JAIMES (HAZLET) [address] [place] [address] [place] [address] * (ABNORMAL) Troponin T high-sensitivity 2-hour (04/18/2025 5:16 PM CDT) Trop T hs 87(H) <=14 ng/L MATY JAIMES (HAZLET) Comment: Interpretive Data For further hscTnT resources including the diagnostic algorithm and an aid in interpretation, copy and paste this link: https://nrl.testcatalog.org/show/hsTrop Current Interpretive Data last revised 2020. Trop T hs delta -11(C) ng/L BILL JAIMES (HAZLET) Comment:Critical Result call ed by [email or web address] at 2025-04-18 17:57:06. Result Read Back by Wm Alfaro ER Charge Trop T hs interp Significa nt(C) MATY JAIMES (HAZLET) Comment:Critical Result call ed by [email or web address] at 2025-04-18 17:57:12. Result Read Back by Wm Alfaro ER Charge Blood 04/18/2025 5:16 PM CDT 04/18/2025 5:18 PM CDT Kathrine Pichardo MD LAB BLOOD ORDERABLE S Final Result MATY THEODORE (HAZLET) 1 [facility] [place] [address] * Sepsis Lactate w/ Reflex (04/18/2025 5:16 PM CDT) Sepsis Lactate 0.9 0.7 - 2.0 mmol/L Blood 04/18/2025 5:16 PM CDT 04/18/2025 5:18 PM CDT Kathrine Pichardo MD LAB BLOOD ORDERABLE S Final Result MATY JAIMES (HAZLET) [address] [place] [address] [place] [address] * (ABNORMAL) Troponin T high-sensitivity series (baseline, 2hr, 4hr, 6hr) (04/18/2025 3:42 PM CDT) Trop T hs 98(H) <=14 ng/L MATY JAIMES (HAZLET) Comment: Interpretive Data For further hscTnT resources including the diagnostic algorithm and an aid in interpretation, copy and paste this link: https://nrl.testcatalog.org/show/hsTrop Current Interpretive Data last revised 2020. Blood 04/18/2025 3:42 PM CDT 04/18/2025 4:04 PM CDT Kathrine Pichardo MD LAB BLOOD ORDERABLE S Final Result MATY JAIMES (HAZLET) 1 [facility] [employer] [place] [address] * (ABNORMAL) eGFR (04/18/2025 3:42 PM CDT) eGFR 56(L) >=60 mL/min/1. 73 m2 Comment: Interpretive Data Reference Interval Normal >/= 90 mL/min/1.73m2 Mildly decreased* 60 - 89 mL/min/1.73m2 Mildly to moderately decreased 45 - 59 mL/min/1.73m2 Moderately to severely decreased 30 - 44 mL/min/1.73m2 Severely decreased 15 - 29 mL/min/1.73m2 Kidney Failure < 15 mL/min/1.73m2 *Relative to young adult level Estimated glomerular filtration rate is determined by the 2020 CKD-EPI equation recommended by the National Kidney Foundation (A Unifying Approach to GFR Estimation: Recommendations of the NKF-ASK Task Force on Reassessing the Inclusion of Race in Diagnosing Kidney Disease, JASN 2020). The CKD-EPI equation should not be used for patients with unstable renal function and has not been validated in children and those over 70. Current interpretive data was last reviewed 2021. Blood 04/18/2025 3:42 PM CDT 04/18/2025 4:04 PM CDT Kathrine Pichardo MD LAB BLOOD ORDERABLE S Final Result MATY JAIMES (HAZLET) 1 [facility] [place] [address] * (ABNORMAL) Differential, auto (04/18/2025 3:42 PM CDT) Neutrophil abs 4.60 1.50 - 6.50 K/cumm Imm gran abs 0.18(H) 0.00 - 0.10 K/cumm [facility] (SCAR) Lymphocyte abs 1.34 0.80 - 3.30 K/cumm [facility] ([place]) Monocyte abs 0.80 0.20 - 0.80 K/cumm [facility] ([place]) Eosinophil abs 0.11 0.00 - 0.50 K/cumm [facility] ([place]) Basophil abs 0.08 0.00 - 0.10 K/cumm [facility] ([place]) Neutrophil pct 64.8 % [facility] (SCAR) Comment: Interpretive Data Percent cell count reference ranges are not reported, since discordance with absolute values may lead to misinterpretation of CBC data. Current Interpretive Data was last revised on 2017. Imm gran pct 2.5 % [facility] (SCAR) Comment: Interpretive Data Percent cell count reference ranges are not reported, since discordance with absolute values may lead to misinterpretation of CBC data. Current Interpretive Data was last revised on 2017. Lymphocyte pct 18.8 % [facility] (SCAR) Comment: Interpretive Data Percent cell count reference ranges are not reported, since discordance with absolute values may lead to misinterpretation of CBC data. Current Interpretive Data was last revised on 2017. Monocyte pct 11.3 % [facility] (SCAR) Comment: Interpretive Data Percent cell count reference ranges are not reported, since discordance with absolute values may lead to misinterpretation of CBC data. Current Interpretive Data was last revised on 2017. Eosinophil pct 1.5 % [facility] ([place]AR) Comment: Interpretive Data Percent cell count reference ranges are not reported, since discordance with absolute values may lead to misinterpretation of CBC data. Current Interpretive Data was last revised on 2017. Basophil pct 1.1 % [facility] (SCAR) Comment: Interpretive Data Percent cell count reference ranges are not reported, since discordance with absolute values may lead to misinterpretation of CBC data. Current Interpretive Data was last revised on 2017. Blood 04/18/2025 3:42 PM CDT 04/18/2025 4:04 PM CDT Kathrine Pichardo MD LAB BLOOD ORDERABLE S Final Result Performing Organization Address [facility]/ZIP Co de Phone Number MATY JAIMES (SCAR) 1 [facility] Department [place] [address] * (ABNORMAL) Pro B-type natriuretic peptide (04/18/2025 3:42 PM CDT) NT-proBNP 1,600(H) <=300 pg/mL MATY JAIMES (SCAR) Comment: Interpretive Comments: A. Dyspnea in Acute Care Setting All Ages: < 300 pg/ml, acute heart failure unlikely. < 50 yrs: 300 - 450 pg/ml, further investigation warranted. > 450 pg/ml, acute heart failure likely. 50 - 74 yrs: 300 - 900 pg/ml, further investigation warranted. > 900 pg/ml, acute heart failure likely . > or = 75 yrs: 450 - 1800 pg/ml, further investigation warranted. > 1800 pg/ml, acute heart failure likely. B. Non-acute Setting < 75 yrs < 125 pg/ml, rules out heart failure. > or = 125 pg/ml, further investigation warranted. > or = 75 yrs < 450 pg/ml, rules out heart failure. > or = 450 pg/ml, further investigation warranted. - Knowledge of each individual patient's NT-proBNP range may be more useful than using similar cut-points for every patient. Please note that marked elevations in NT-proBNP levels may be observed in state other than Left Ventricular Congestive Failure, including: acute coronary syndromes, right heart strain/failure (including pulmonary embolism and cor pulmonale), critical illness, renal failure, as well as advanced age. - References: 1. Scott REMY et.al. Eur Heart J. 2006:27:330-337. 2. Darrell RW, Veronica AM. J. AM Maynor Cardiol: Cardiovasc Imag. 2009;2: 216- 225. Interpretive Data Last Revised Date: 2018. Blood 04/18/2025 3:42 PM CDT 04/18/2025 4:04 PM CDT us Kathrine Pichardo MD LAB BLOOD ORDERABLE S Final Result Performing Organization Address [facility]/State/ZIP Co de Phone Number [facility]Y [facility] (SCAR) 1 [facility] Department [place] [address] * (ABNORMAL) CBC with auto differential (04/18/2025 3:42 PM CDT) WBC 7.11 3.80 - 9.90 K/cumm Hgb 12.1 11.9 - 15.5 g/dL [facility] (SCAR) Hct 39.6 35.6 - 45.5 % [facility] ([place]) Plt 341 150 - 400 K/cumm [facility] ([place]) MPV 9.6 9.1 - 12.3 fL [facility] ([place]AR) RBC 4.44 3.90 - 5.20 M/cumm [facility] ([place]) MCV 89.2 81.3 - 96.4 fL [facility] ([place]) MCH 27.3 27.1 - 33.3 pg [facility] ([place]) MCHC 30.6(L) 32.3 - 35.7 g/dL [facility] ([place]) RDW CV 16.4(H) 11.1 - 14.9 % [facility] ([place]) RDW SD 53.1(H) 35.7 - 48.1 fL [facility] ([place]) NRBC abs 0.00 0.00 - 0.01 K/cumm [facility] (SCAR) Blood 04/18/2025 3:42 PM CDT 04/18/2025 4:04 PM CDT us Kathrine Pichardo MD LAB BLOOD ORDERABLE S Final Result MATY JAIMES (SCAR) 1 [facility] Department [place] [address] * Blood culture Blood Peripheral (04/18/2025 3:42 PM CDT) Report Final Report: No growth Comment:Testing performed by : [facility], [address] [facility], [place]., [address] Blood (Peripheral) 04/18/2025 3:42 PM CDT 04/18/2025 7:08 PM CDT Narrative MATY JAIMES (SCAR) - 04/23/2025 7:00 AM CDT Draw Blood cultures before administration of Antibiotics Collection->Peripheral 1. Blood cultures are incubated for 4 days on a continuously monitored blood culture system. The first report of a negative culture is issued within 24 hours of receipt of the specimen in the laboratory. 2. Positive culture results are reported as soon as they are detected. 3. The most important factor for detection of microbes in the setting of bloodstream infection is the volume of blood submitted for culture. Failure to collect an optimal blood volume can result in false negative blood cultures. 4. For pediatric patients, the recommended blood volume to collect follows a weight based strategy. See the electronic test catalog for collection instructions. 5. For positive blood cultures, a rapid molecular test may be performed for organism identification using the rosanna ePlex blood culture identification panel for gram positive (BCID-GP) and gram negative (BCID-GN) organisms. This nucleic acid amplification test detects microbial DNA in positive blood culture broth. This assay has been cleared by the [place] Food and Drug Administration and its performance characteristics have been verified by the [facility]. For questions about this culture, contact the Microbiology Laboratory at [phone]. Interpretive data was last revised on 24. us Sasha Simmons MD LAB MICROBIOLOGY - [facility] ORDERABLES Final Result MATY JAIMES (SCAR) 1 [facility] Department [place] [address] * Protime-INR (04/18/2025 3:42 PM CDT) PT 11.3 10.2 - 13.5 sec MATY JAIMES (SCAR) INR 1.00 0.90 - 1.20 MATY JAIMES (SCAR) Comment: Interpretive data Oral anticoagulant therapeutic ranges: Venous thromboembolism prophylaxis or treatment: 2.0-3.0 CARDIOLOGY Standard range: 2.0-3.0 High-intensity range: 2.5-3.5 Refer to indication-specific guidelines for appropriate target ranges for prosthetic heart valve replacement. Current interpretive data was last revised on 2019. Blood 04/18/2025 3:42 PM CDT 04/18/2025 4:04 PM CDT us Kathrine Pichardo MD LAB BLOOD ORDERABLE S Final Result [facility] (SCAR) 1 [facility] Department [place] [address] * (ABNORMAL) Comprehensive metabolic panel (04/18/2025 3:42 PM CDT) Sodium 136 135 - 145 mmol/L [facility] (SCAR) Potassium, pl 4.9 3.3 - 4.9 mmol/L [facility] ([place]) Chloride 102 97 - 110 mmol/L [facility] ([place]) CO2 25 22 - 32 mmol/L [facility] ([place]AR) Anion gap 9 2 - 15 mmol/L [facility] ([place]) BUN 40(H) 6 - 25 mg/dL [facility] ([place]) Creatinine 1.12(H) 0.60 - 1.10 mg/dL [facility] ([place]AR) Glucose 241(H) 70 - 199 mg/dL [facility] (SCAR) Comment: Interpretive Data Fasting glucose >/= 126 mg/dl is diagnostic for diabetes. Fasting is defined as no caloric intake for at least 8 hours. Fasting glucose between 100 mg/dl to 125 mg/dl is diagnostic of prediabetes. In a patient with classic symptoms of hyperglycemia or hyperglycemic crisis, a random glucose >/= 200 mg/dl is diagnostic for diabetes. In the absence of unequivocal hyperglycemia, results should be confirmed by repeat testing. The classification and Diagnosis of Diabetes Diabetes Care 2021; 46: S19-S40. Current interpretive data was last revised 2022. Calcium 11.3(H) 8.5 - 10.3 mg/dL [facility] (SCAR) Bilirubin, total 0.2 0.1 - 1.2 mg/dL [facility] (SCAR) Protein, pl 8.1 6.5 - 8.5 g/dL [facility] ([place]) Albumin 3.3(L) 3.5 - 5.0 g/dL [facility] (SCAR) Alk phos 119 40 - 130 Units/L [facility] ([place]AR) ALT <5(L) 7 - 45 Units/L [facility] ([place]AR) AST 10 10 - 45 Units/L [facility] (SCAR) Blood 04/18/2025 3:42 PM CDT 04/18/2025 4:04 PM CDT us Kathrine Pichardo MD LAB BLOOD ORDERABLE S Final Result [facility] (SCAR) 1 [facility] Department [place] [address] * CT Chest Abdomen Pelvis WO Contrast (04/18/2025 3:18 PM CDT) Anatomical Region Laterality Modality Body N/A Computed Tomogra phy 04/18/2025 3:50 PM CDT Narrative 04/18/2025 3:54 PM CDT EXAM DESCRIPTION: CT CHEST ABDOMEN PELVIS WO CONTRAST REASON FOR STUDY: Sepsis Failure to thrive and a possible UTI. Pt has a chronic luis and home health sees her. TECHNIQUE: CT scan of the chest, abdomen, and pelvis performed without intravenous and without oral contrast using helical scanning technique. Reconstructed coronal and sagittal MPR images reviewed. All images stored on PACS. Automated exposure control was used as a dose optimization technique for this examination. COMPARISON: 03/27/2025 FINDINGS: LUNGS: Bibasilar atelectasis somewhat improved since 03/27/2025. Trachea and major airways patent. HEART/MEDIASTINUM/FLOYD: Heart size normal. Coronary artery calcifications. No enlarged lymph node. Thoracic inlet unremarkable. CHEST MSK: Mild shoulder and spine arthritis. CHEST WALL: Unremarkable. LIVER/BILIARY: Liver unremarkable. Biliary tree normal in caliber. GALLBLADDER: Absent. SPLEEN: Normal. PANCREAS: Moderate atrophy. ADRENAL GLANDS: Normal. KIDNEYS/URINARY TRACT: Moderate bilateral hydroureteronephrosis unchanged. Bladder contracted around Lusi with some wall thickening. Inflammation around the bladder somewhat decreased GI: Stomach and small bowel appear normal. Colon and appendix unremarkable. OTHER ABDOMINAL/PELVIS: Major vascular structures are normal in caliber. IVC filter. No enlarged lymph node or free fluid. Uterine fibroid. MSK: Mild disc disease and facet arthropathy. Moderate hip arthritis. BODY WALL: Generalized muscular atrophy. Mild diffuse body wall edema. IMPRESSION: 1. Moderate bilateral hydroureteronephrosis similar to the prior. Bladder inflammation slightly improved. 2. Chronic findings as above. THIS IS AN ELECTRONICALLY VERIFIED FINAL REPORT 04/18/2025 3:54 PM - Electronically signed by Abhijeet Comer M.D. AR: FE Report ID: [id number] Reading Location: [id number] Procedure Note Abhijeet Comer MD - 04/18/2025 EXAM DESCRIPTION: CT CHEST ABDOMEN PELVIS WO CONTRAST REASON FOR STUDY: Sepsis Failure to thrive and a possible UTI. Pt has a chronic luis and homehealth sees her. TECHNIQUE: CT scan of the chest, abdomen, and pelvis performed without intravenous and without oral contrast using helical scanning technique. Reconstructed coronal and sagittal MPR images reviewed. All images storedon PACS. Automated exposure control was used as a dose optimizationtechnique for this examination. COMPARISON: 03/27/2025 FINDINGS: LUNGS: Bibasilar atelectasis somewhat improved since 03/27/2025.Trachea and major airways patent. HEART/MEDIASTINUM/FLOYD: Heart size normal. Coronary arterycalcifications. No enlarged lymph node. Thoracic inlet unremarkable. CHEST MSK: Mild shoulder and spine arthritis. CHEST WALL: Unremarkable. LIVER/BILIARY: Liver unremarkable. Biliary tree normal in caliber. GALLBLADDER: Absent. SPLEEN: Normal. PANCREAS: Moderate atrophy. ADRENAL GLANDS: Normal. KIDNEYS/URINARY TRACT: Moderate bilateral hydroureteronephrosisunchanged. Bladder contracted around Luis with some wall thickening. Inflammation around the bladder somewhat decreased GI: Stomach and small bowel appear normal. Colon and appendixunremarkable. OTHER ABDOMINAL/PELVIS: Major vascular structures are normal in caliber.IVC filter. No enlarged lymph node or free fluid. Uterine fibroid. MSK: Mild disc disease and facet arthropathy. Moderate hip arthritis. BODY WALL: Generalized muscular atrophy. Mild diffuse body wall edema. IMPRESSION: 1. Moderate bilateral hydroureteronephrosis similar to the prior.Bladder inflammation slightly improved. 2. Chronic findings as above. THIS IS AN ELECTRONICALLY VERIFIED FINAL REPORT 04/18/2025 3:54 PM - Electronically signed by Abhijeet Comer M.D. AR: FE Report ID: [id number] Reading Location: [place] [address] Kathrine Pichardo MD IM CT PROCEDURES F inal Result * CT Head WO Contrast (04/18/2025 3:18 PM CDT) Anatomical Region Laterality Modality Head and Neck N/A Computed Tomogra phy 04/18/2025 3:54 PM CDT Narrative 04/18/2025 3:55 PM CDT EXAM DESCRIPTION: CT HEAD WO CONTRAST REASON FOR STUDY: weakness Failure to thrive and a possible UTI. Pt has a chronic luis and home health sees her. TECHNIQUE: Axial images acquired through the brain without intravenous contrast. Images stored on PACS. Automated exposure control was used as a dose optimization technique for this examination. COMPARISON: 03/27/2025 FINDINGS: BRAIN: No mass, hemorrhage, or recent infarct. Right frontal approach ventriculostomy catheter unchanged in position. Volume loss somewhat advanced for age. VASCULAR: No dense vessel or obvious aneurysm. EXTRA-AXIAL SPACES: Minimal haziness unchanged. ORBITS/GLOBES: Right globe atrophy versus prosthesis. SOFT TISSUES: Unremarkable. BONES/SINUSES: No fracture or lesion. Paranasal sinuses and other skullbase airspaces are clear. IMPRESSION: No acute abnormality identified. Chronic findings as above. THIS IS AN ELECTRONICALLY VERIFIED FINAL REPORT 04/18/2025 3:55 PM - Electronically signed by Abhijeet Comer M.D. AR: FE Report ID: [id number] Reading Location: [id number] Procedure Note Abhijeet Comer MD - 04/18/2025 EXAM DESCRIPTION: CT HEAD WO CONTRAST REASON FOR STUDY: weakness Failure to thrive and a possible UTI. Pt has a chronic luis and homehealth sees her. TECHNIQUE: Axial images acquired through the brain without intravenous contrast. Images stored on PACS. Automated exposure control was used asa dose optimization technique for this examination. COMPARISON: 03/27/2025 FINDINGS: BRAIN: No mass, hemorrhage, or recent infarct. Right frontal approach ventriculostomy catheter unchanged in position. Volume loss somewhat advanced for age. VASCULAR: No dense vessel or obvious aneurysm. EXTRA-AXIAL SPACES: Minimal haziness unchanged. ORBITS/GLOBES: Right globe atrophy versus prosthesis. SOFT TISSUES: Unremarkable. BONES/SINUSES: No fracture or lesion. Paranasal sinuses and otherskullbase airspaces are clear. IMPRESSION: No acute abnormality identified. Chronic findings as above. THIS IS AN ELECTRONICALLY VERIFIED FINAL REPORT 04/18/2025 3:55 PM - Electronically signed by Abhijeet Comer M.D. AR: FE Report ID: [id number] Reading Location: [place] [address] Kathrine Pichardo MD IMG CT PROCEDURES F inal Result * (ABNORMAL) Urinalysis reflex to microscopic and culture Urine (04/18/2025 2:51 PM CDT) Color, ur Yellow Clarity, ur Turbid(A) Clear [facility] (SCAR) Specific gravity, ur 1.016 1.003 - 1.030 [facility] (SCAR) pH, urine 6.5 [facility] (SCAR) Comment: Interpretive Data U rine pH is affected by diet, medications, systemic acid-base disturbances, and renal tubular function. pH may affect urinary stone formation. For example, urine pH below 6.0 may help reduce the tendency for calcium phosphate stones and pH greater than 6.0 may reduce the tendency for uric acid stone formation. Source: [employer] Current Interpretive Data was last revised on 2017 Protein, ur ql 3+(A) Negative [facility] (SCAR) Glucose, ur ql 4+(A) Negative [facility] (SCAR) Ketones, ur Negative Negative [facility] (SCAR) Bilirubin, ur Negative Negative [facility] (SCAR) Blood, ur 3+(A) Negative [facility] (SCAR) Urobilinogen, ur <2.0 <2.0 mg/dL [facility] ([place]AR) Nitrite, ur Negative Negative [facility] (SCAR) Leukocyte esterase, ur 4+(A) Negative [facility] (SCAR) UA reflex comment Reflex to microscopic UA will be performed. [facility] (SCAR) Urine 04/18/2025 2:51 PM CDT 04/18/2025 3:07 PM CDT Kathrine Pichardo MD LAB MICROBIOLOGY - GENERAL ORDERABLES Final Result Performing Organization Address City/[facility]/ZIP Co de Phone Number MATY JAIMES (SCAR) 1 [facility] [place] [address] * (ABNORMAL) Urinalysis, microscopic only (04/18/2025 2:51 PM CDT) WBC, ur >50(A) 0 - 5 /HPF RBC, ur >50(A) 0 - 2 /HPF [facility] (SCAR) Epithelial cells, squamous, ur 6-10(A) 0 - 5 /HPF [facility] (SCAR) Bacteria, ur Trace(A) [facility] (SCAR) Culture Reflex Comment Reflex to urine culture will be performed. [facility] (SCAR) Urine 04/18/2025 2:51 PM CDT 04/18/2025 3:07 PM CDT Kathrine Pichardo MD LAB URINE ORDERABLE S Final Result Performing Organization Address City/[facility]/ZIP Co de Phone Number MATY JAIMES (SCAR) 1 [facility] [place] [address] * Urine culture Urine (04/18/2025 2:51 PM CDT) Report Final Report: Less than 100,000 colonies/mL (clinically insignificant growth based on current clinical standards) Comment:Testing performed by : [facility], [address] [place]., [address] Organism (CLINICALLY INSIGNIFICANT GROWTH [facility] (HA[place]LET) Urine 04/18/2025 2:51 PM CDT 04/18/2025 7:08 PM CDT Narrative MATY [facility] (SCAR) - 04/19/2025 8:05 PM CDT Urine culture reflexed based upon urinalysis results. Testing performed by [facility] ([phone]) us Kathrine Pichardo MD LAB MICROBIOLOGY - GENERAL ORDERABLES Final Result MATY [facility] ([place]) 1 [facility] Department [place] [address] * Influenza A/B, RSV, and COVID-19 PCR Nasopharyngeal (04/18/2025 2:50 PM CDT) COVID-19 RNA Negative Negative Influenza A RNA Negative Negative [facility] (SCAR) Influenza B RNA [facility] [facility] ([place]) RSV RNA Negative Negative [facility] ([place]) Comment: Interpretive data: Testing performed by [facility]. This test is performed using the Stuffle Xpert Xpress CoV-2/Flu/RSV plus assay. This is a multiplex, real- time reverse transcriptase PCR assay intended for the qualitative detection of nucleic acid from SARS-CoV-2, influenza A, influenza B, and respiratory syncytial virus. This assay has been cleared by the [place] Food and Drug administration. The performance characteristics have been verified by the [facility]. Results must be considered in the clinical context, and a negative result does not rule out infection. Interpretive Data last revised 2023 Nasopharyngeal 04/18/2025 2: 50 PM CDT 04/18/2025 3:07 PM CDT Narrative MATY JAIMES ([place]) - 04/18/2025 3:46 PM CDT Is the Patient experiencing symptoms consistent with COVID?->Yes us Kathrine Pichardo MD LAB MICROBIOLOGY - GENERAL ORDERABLES Final Result MATY [facility] [place]) 1 [facility] Department [place] [address] * XR Chest 1 Vw Portable (04/18/2025 2:47 PM CDT) Anatomical Region Laterality Modality Body, Chest N/A Computed Radiogr aphy 04/18/2025 3:49 PM CDT Narrative 04/18/2025 3:50 PM CDT EXAM DESCRIPTION: XR CHEST 1 VIEW REASON FOR STUDY: generalized weakness Pt arrives via [facility] from home with complaints of failure to thrive and a possible UTI. Pt has a chronic luis and home charbel sees her. TECHNIQUE: Portable upright AP view of the chest. COMPARISON: 03/27/2025 FINDINGS: LUNGS AND PLEURA: No focal opacity, large effusion, or pneumothorax identified. HEART/MEDIASTINUM: Trachea midline. Cardiac silhouette normal in size. Mediastinal contours appear normal. BONES: Unremarkable. CHEST WALL: Unremarkable. UPPER ABDOMEN: Unremarkable. IMPRESSION: No acute abnormality identified. THIS IS AN ELECTRONICALLY VERIFIED FINAL REPORT 04/18/2025 3:50 PM - Electronically signed by Abhijeet Comer M.D. AR: FE Report ID: [id number] Reading Location: [place] [address] Procedure Note Abhijeet Comer MD - 04/18/2025 EXAM DESCRIPTION: XR CHEST 1 VIEW REASON FOR STUDY: generalized weakness Pt arrives via [facility] from home with complaints of failure to thrive olegario possible UTI. Pt has a chronic luis and home charbel sees her. TECHNIQUE: Portable upright AP view of the chest. COMPARISON: 03/27/2025 FINDINGS: LUNGS AND PLEURA: No focal opacity, large effusion, or pneumothorax identified. HEART/MEDIASTINUM: Trachea midline. Cardiac silhouette normal in size. Mediastinal contours appear normal. BONES: Unremarkable. CHEST WALL: Unremarkable. UPPER ABDOMEN: Unremarkable. IMPRESSION: No acute abnormality identified. THIS IS AN ELECTRONICALLY VERIFIED FINAL REPORT 04/18/2025 3:50 PM - Electronically signed by Abhijeet Comer M.D. AR: FE Report ID: [id number] Reading Location: [id number] Kathrine Pichardo MD IMG XR PROCEDURES F inal Result * ECG 12 lead (04/18/2025 2:33 PM CDT) 04/18/2025 2:33 PM CDT Narrative [facility] - 04/18/2025 4:02 PM CDT Vent Rate: 81 bpm RR Interval: [address] Interval: 232 msec QRS Duration: 158 msec QT Interval: 404 msec QTC Interval: 441 msec P-R-T [place]: 67 - -78 - 81 degrees IMPRESSION: SINUS RHYTHM WITH FIRST DEGREE AV BLOCK RIGHT BUNDLE BRANCH BLOCK [120+ ms QRS DURATION, UPRIGHT V1, 40+ ms S IN I/aVL/V4/V5/V6] Left axis deviation SEPTAL MYOCARDIAL INFARCTION , OF INDETERMINATE AGE [40+ ms Q WAVE IN V1/V2] No significant change from prior EKG Electronically Signed By: Dr Gaviota Masters Kathrine Pichardo MD ECG ORDERABLES Fin al Result [facility] * (ABNORMAL) POCT glucose (03/30/2025 11:39 AM CDT) Glucose, POC 219(H) 70 - 199 mg/dL Blood 03/30/2025 11:3 9 AM CDT 03/30/2025 11:39 AM CDT Dank Napoles II, MD LAB POCT ORDERABLES - DEVICE Final Result MATY [facility] ([place]) 1 [facility] Department [place] [address] * POCT glucose (03/30/2025 8:00 AM CDT) Pathologist [facility] Glucose, POC 144 70 - 199 mg/dL Blood 03/30/2025 8:00 AM CDT 03/30/2025 8:00 AM CDT us Dank Napoles II, MD LAB POCT ORDERABLES - DEVICE Final Result Performing Organization Address City/[facility]/ZIP Co de Phone Number MATY JAIMES ([place]) 1 [facility] [place] [address] * eGFR (03/30/2025 2:58 AM CDT) [facility] eGFR 60 >=60 mL/min/1. 73 m2 Comment: Interpretive Data Reference Interval Normal >/= 90 mL/min/1.73m2 Mildly decreased* 60 - 89 mL/min/1.73m2 Mildly to moderately decreased 45 - 59 mL/min/1.73m2 Moderately to severely decreased 30 - 44 mL/min/1.73m2 Severely decreased 15 - 29 mL/min/1.73m2 Kidney Failure < 15 mL/min/1.73m2 *Relative to young adult level Estimated glomerular filtration rate is determined by the 2020 CKD-EPI equation recommended by the National Kidney Foundation (A Unifying Approach to GFR Estimation: Recommendations of the NKF-ASK Task Force on Reassessing the Inclusion of Race in Diagnosing Kidney Disease, JASN 2020). The CKD-EPI equation should not be used for patients with unstable renal function and has not been validated in children and those over 70. Current interpretive data was last reviewed 2021. Blood 03/30/2025 2:58 AM CDT 03/30/2025 4:17 AM CDT us Irina Malone MD LAB BLOOD ORDERABLES Final Re sult [facility] ([place]) 1 [facility] [place] [address] * (ABNORMAL) Differential, auto (03/30/2025 2:58 AM CDT) [facility] Neutrophil abs 5.70 1.50 - 6.50 K/cumm Imm gran abs 0.14(H) 0.00 - 0.10 K/cumm [facility] ([place]) Lymphocyte abs 1.93 0.80 - 3.30 K/cumm [facility] ([place]) Monocyte abs 1.18(H) 0.20 - 0.80 K/cumm [facility] ([place]) Eosinophil abs 0.17 0.00 - 0.50 K/cumm [facility] ([place]) Basophil abs 0.07 0.00 - 0.10 K/cumm [facility] ([place]) Neutrophil pct 62.1 % [facility] ([place]) Comment: Interpretive Data Percent cell count reference ranges are not reported, since discordance with absolute values may lead to misinterpretation of CBC data. Current Interpretive Data was last revised on 2017. Imm gran pct 1.5 % [facility] ([place]) Comment: Interpretive Data Percent cell count reference ranges are not reported, since discordance with absolute values may lead to misinterpretation of CBC data. Current Interpretive Data was last revised on 2017. Lymphocyte pct 21.0 % [facility] ([place]) Comment: Interpretive Data Percent cell count reference ranges are not reported, since discordance with absolute values may lead to misinterpretation of CBC data. Current Interpretive Data was last revised on 2017. Monocyte pct 12.8 % [facility] ([place]) Comment: Interpretive Data Percent cell count reference ranges are not reported, since discordance with absolute values may lead to misinterpretation of CBC data. Current Interpretive Data was last revised on 2017. Eosinophil pct 1.8 % [facility] ([place]) Comment: Interpretive Data Percent cell count reference ranges are not reported, since discordance with absolute values may lead to misinterpretation of CBC data. Current Interpretive Data was last revised on 2017. Basophil pct 0.8 % [facility] ([place]) Comment: Interpretive Data Percent cell count reference ranges are not reported, since discordance with absolute values may lead to misinterpretation of CBC data. Current Interpretive Data was last revised on 2017. Blood 03/30/2025 2:58 AM CDT 03/30/2025 4:17 AM CDT Irina Malone MD LAB BLOOD ORDERABLES Final Re sult [facility] ([place]) 1 [facility] Department [place] [address] * (ABNORMAL) CBC with auto differential (03/30/2025 2:58 AM CDT) WBC 9.19 3.80 - 9.90 K/cumm Hgb 10.1(L) 11.9 - 15.5 g/dL [facility] ([place]) Hct 32.3(L) 35.6 - 45.5 % [facility] ([place]) Plt 213 150 - 400 K/cumm [facility] ([place]) MPV 9.4 9.1 - 12.3 fL [facility] ([place]) RBC 3.61(L) 3.90 - 5.20 M/cumm [facility] ([place]) MCV 89.5 81.3 - 96.4 fL [facility] ([place]) MCH 28.0 27.1 - 33.3 pg [facility] ([place]) MCHC 31.3(L) 32.3 - 35.7 g/dL [facility] ([place]) RDW CV 15.7(H) 11.1 - 14.9 % [facility] ([place]) RDW SD 51.5(H) 35.7 - 48.1 fL [facility] ([place]) NRBC abs 0.00 0.00 - 0.01 K/cumm [facility] ([place]) Blood 03/30/2025 2:58 AM CDT 03/30/2025 4:17 AM CDT Irina Malone MD LAB BLOOD ORDERABLES Final Re sult MATY JAIMES ([place]) 1 [facility] Department [place] [address] * (ABNORMAL) Comprehensive metabolic panel (03/30/2025 2:58 AM CDT) Sodium 142 135 - 145 mmol/L [facility] ([place]) Potassium, pl 4.1 3.3 - 4.9 mmol/L [facility] ([place]) Chloride 110 97 - 110 mmol/L [facility] ([place]) CO2 21(L) 22 - 32 mmol/L [facility] ([place]) Anion gap 11 2 - 15 mmol/L [facility] ([place]) BUN 32(H) 6 - 25 mg/dL [facility] ([place]) Creatinine 1.07 0.60 - 1.10 mg/dL [facility] ([place]) Glucose 162 70 - 199 mg/dL [facility] ([place]) Comment: Interpretive Data Fasting glucose >/= 126 mg/dl is diagnostic for diabetes. Fasting is defined as no caloric intake for at least 8 hours. Fasting glucose between 100 mg/dl to 125 mg/dl is diagnostic of prediabetes. In a patient with classic symptoms of hyperglycemia or hyperglycemic crisis, a random glucose >/= 200 mg/dl is diagnostic for diabetes. In the absence of unequivocal hyperglycemia, results should be confirmed by repeat testing. The classification and Diagnosis of Diabetes Diabetes Care 202; 46: S19-S40. Current interpretive data was last revised 2022. Calcium 9.8 8.5 - 10.3 mg/dL [facility] ([place]) Bilirubin, total 0.3 0.1 - 1.2 mg/dL [facility] ([place]) Protein, pl 6.4(L) 6.5 - 8.5 g/dL [facility] ([place]) Albumin 2.7(L) 3.5 - 5.0 g/dL [facility] ([place]) Alk phos 85 40 - 130 Units/L [facility] ([place]) ALT <5(L) 7 - 45 Units/L [facility] ([place]) AST 12 10 - 45 Units/L [facility] ([place]) Blood 03/30/2025 2:58 AM CDT 03/30/2025 4:17 AM CDT us Irina Malone MD LAB BLOOD ORDERABLES Final Re sult MATY JAIMES ([place]) 1 [facility] [place] [address] * POCT glucose (03/30/2025 2:07 AM CDT) Glucose, POC 163 70 - 199 mg/dL Blood 03/30/2025 2:07 AM CDT 03/30/2025 2:07 AM CDT Dank Napoles II, MD LAB POCT ORDERABLES - DEVICE Final Result Performing Organization Address City/[facility]/ZIP Co de Phone Number MATY JAIMES ([place]) 1 [facility] [place] [address] * POCT glucose (03/29/2025 9:13 PM CDT) Glucose, POC 176 70 - 199 mg/dL Blood 03/29/2025 9:13 PM CDT 03/29/2025 9:13 PM CDT Dank Napoles II, MD LAB POCT ORDERABLES - DEVICE Final Result Performing Organization Address [facility]/ZIP Co de Phone Number AMTY JAIMES ([place]) 1 [facility] [place] [address] * (ABNORMAL) POCT glucose (03/29/2025 4:51 PM CDT) Glucose, POC 216(H) 70 - 199 mg/dL Blood 03/29/2025 4:51 PM CDT 03/29/2025 4:51 PM CDT Dank Napoles II, MD LAB POCT ORDERABLES - DEVICE Final Result MATY JAIMES ([place]) 1 [facility] [place] [address] * POCT glucose (03/29/2025 11:16 AM CDT) Glucose, POC 197 70 - 199 mg/dL Blood 03/29/2025 11:1 6 AM CDT 03/29/2025 11:16 AM CDT Dank Napoles II, MD LAB POCT ORDERABLES - DEVICE Final Result Performing Organization Address [facility] Co de Phone Number MATY JAIMES ([place]) 1 [facility] [place] [address] * POCT glucose (03/29/2025 7:32 AM CDT) [facility] Glucose, POC 172 70 - 199 mg/dL Blood 03/29/2025 7:32 AM CDT 03/29/2025 7:32 AM CDT Dank Napoles II, MD LAB POCT ORDERABLES - DEVICE Final Result Performing Organization Address [facility] de Phone Number MATY JAIMES ([place]) 1 [facility] [place] [address] * (ABNORMAL) POCT glucose (03/29/2025 2:39 AM CDT) [facility] Glucose, POC 214(H) 70 - 199 mg/dL Blood 03/29/2025 2:39 AM CDT 03/29/2025 2:39 AM CDT Dank Napoles II, MD LAB POCT ORDERABLES - DEVICE Final Result Performing Organization Address [facility] Co de Phone Number MATY JAIMES ([place]) 1 [facility] [place] [address] * (ABNORMAL) eGFR (03/29/2025 2:17 AM CDT) [facility] eGFR 56(L) >=60 mL/min/1. 73 m2 Comment: Interpretive Data Reference Interval Normal >/= 90 mL/min/1.73m2 Mildly decreased* 60 - 89 mL/min/1.73m2 Mildly to moderately decreased 45 - 59 mL/min/1.73m2 Moderately to severely decreased 30 - 44 mL/min/1.73m2 Severely decreased 15 - 29 mL/min/1.73m2 Kidney Failure < 15 mL/min/1.73m2 *Relative to young adult level Estimated glomerular filtration rate is determined by the 2020 CKD-EPI equation recommended by the National Kidney Foundation (A Unifying Approach to GFR Estimation: Recommendations of the NKF-ASK Task Force on Reassessing the Inclusion of Race in Diagnosing Kidney Disease, JASN 2020). The CKD-EPI equation should not be used for patients with unstable renal function and has not been validated in children and those over 70. Current interpretive data was last reviewed 2021. Blood 03/29/2025 2:17 AM CDT 03/29/2025 4:08 AM CDT Irina Malone MD LAB BLOOD ORDERABLES Final Re sult [facility] ([place]) 1 [facility] Department [place] [address] * (ABNORMAL) Differential, auto (03/29/2025 2:17 AM CDT) Neutrophil abs 6.26 1.50 - 6.50 K/cumm Imm gran abs 0.32(H) 0.00 - 0.10 K/cumm [facility] ([place]) Lymphocyte abs 2.13 0.80 - 3.30 K/cumm [facility] ([place]) Monocyte abs 1.10(H) 0.20 - 0.80 K/cumm [facility] ([place]) Eosinophil abs 0.23 0.00 - 0.50 K/cumm [facility] ([place]) Basophil abs 0.10 0.00 - 0.10 K/cumm [facility] ([place]) Neutrophil pct 61.7 % [facility] ([place]) Comment: Interpretive Data Percent cell count reference ranges are not reported, since discordance with absolute values may lead to misinterpretation of CBC data. Current Interpretive Data was last revised on 2017. Imm gran pct 3.2 % [facility] ([place]) Comment: Interpretive Data Percent cell count reference ranges are not reported, since discordance with absolute values may lead to misinterpretation of CBC data. Current Interpretive Data was last revised on 2017. Lymphocyte pct 21.0 % [facility] ([place]) Comment: Interpretive Data Percent cell count reference ranges are not reported, since discordance with absolute values may lead to misinterpretation of CBC data. Current Interpretive Data was last revised on 2017. Monocyte pct 10.8 % [facility] ([place]) Comment: Interpretive Data Percent cell count reference ranges are not reported, since discordance with absolute values may lead to misinterpretation of CBC data. Current Interpretive Data was last revised on 2017. Eosinophil pct 2.3 % [facility] ([place]) Comment: Interpretive Data Percent cell count reference ranges are not reported, since discordance with absolute values may lead to misinterpretation of CBC data. Current Interpretive Data was last revised on 2017. Basophil pct 1.0 % [facility] ([place]) Comment: Interpretive Data Percent cell count reference ranges are not reported, since discordance with absolute values may lead to misinterpretation of CBC data. Current Interpretive Data was last revised on 2017. Blood 03/29/2025 2:17 AM CDT 03/29/2025 4:08 AM CDT us Irina Malone MD LAB BLOOD ORDERABLES Final Re sult MATY JAIMES ([place]) 1 [facility] Department [place] [address] * (ABNORMAL) CBC with auto differential (03/29/2025 2:17 AM CDT) WBC 10.14(H) 3.80 - 9.90 K/cumm Hgb 10.8(L) 11.9 - 15.5 g/dL [facility] ([place]) Hct 35.0(L) 35.6 - 45.5 % [facility] ([place]) Plt 249 150 - 400 K/cumm MATY JAIMES ([place]) MPV 9.5 9.1 - 12.3 fL [facility] ([place]) RBC 3.93 3.90 - 5.20 M/cumm [facility] ([place]) MCV 89.1 81.3 - 96.4 fL [facility] ([place]) MCH 27.5 27.1 - 33.3 pg [facility] ([place]) MCHC 30.9(L) 32.3 - 35.7 g/dL [facility] ([place]) RDW CV 15.9(H) 11.1 - 14.9 % [facility] ([place]) RDW SD 51.4(H) 35.7 - 48.1 fL [facility] ([place]) NRBC abs 0.00 0.00 - 0.01 K/cumm [facility] ([place]) Blood 03/29/2025 2:17 AM CDT 03/29/2025 4:08 AM CDT us Irina Malone MD LAB BLOOD ORDERABLES Final Re sult [facility] ([place]) [address] [place] [address] Department [place] [address] * (ABNORMAL) Hemoglobin A1c (03/29/2025 2:17 AM CDT) Hgb A1C 7.9(H) 4.0 - 5.6 % [facility] ([place]) Estimated Average Glucose 180 mg/dL [facility] ([place]) Comment: The ADA recommends reporting an estimated Average Glucose (eAG) with all Hemoglobin A1c results using the equation derived from a study of 507 normal and diabetic adults. Minority populations were underrepresented and children were not included. (Diabetes Care 31:4599-5539, 2008). The eAG is not equivalent to a fasting glucose. Testing performed by: [facility], [facility], [place], [address] Blood 03/29/2025 2:17 AM CDT 03/29/2025 4:08 AM CDT us Dank Napoles II, MD LAB BLOOD ORDERABLES F inal Result MATY JAIMES ([place]) 1 [facility] [place] [address] * (ABNORMAL) Ferritin (03/29/2025 2:17 AM CDT) Ferritin 203(H) 13 - 150 ng/mL MATY JAIMES ([place]) Blood 03/29/2025 2:17 AM CDT 03/29/2025 4:08 AM CDT Dank Napoles II, MD LAB BLOOD ORDERABLES F inal Result Performing Organization Address [facility] Co de Phone Number MATY JAIMES ([place]) 1 [facility] [place] [address] * (ABNORMAL) Lipid panel (03/29/2025 2:17 AM CDT) Cholesterol 97 30 - 199 mg/dL [facility] ([place]) Comment: Interpretive Data Ages < or = 19 years Acceptable: <170 mg/dL Borderline high: 170-199 mg/dL High: >or= 200 mg/dL Ages > or = 20 years Desirable: <200 mg/dL Borderline high: 200-239 mg/dL High: >or= 240 mg/dL Literature References: 1. Expert Panel on Integrated Guidelines for Cardiovascular Health and Risk Reduction in Children and Adolescents. Pediatrics 2011;128:S213 2. NCEP Expert Panel. Circulation 2004;110:227 Current Interpretive Data was last revised on 2018. Triglycerides 174(H) <=149 mg/dL [facility] ([place]) Comment: Interpretive Data Ages < or = 9 years Acceptable: <75 mg/dL Borderline high: 75-99 mg/dL High: >or= 100 mg/dL Ages 10 to 20 years Acceptable: <90 mg/dL Borderline high: 90-129 mg/dL High: >or= 130 mg/dL Ages > or = 20 years Desirable: <150 mg/dL Borderline high: 150-199 mg/dL High: 200-499 mg/dL Very high: >or= 499 mg/dL Literature References: 1. Expert Panel on Integrated Guidelines for Cardiovascular Health and Risk Reduction in Children and Adolescents. Pediatrics 2011;128:S213 2. NCEP Expert Panel. Circulation 2004;110:227 Current Interpretive Data was last revised on 2018. HDL 31(L) >=40 mg/dL MATY JAIMES ([place]) Comment: Interpretive Data Ages < or = 19 years Acceptable: >45 mg/dL Borderline low: 40-45 mg/dL Low: <40 mg/dL Ages > or = 20 years Desirable: >or= 60 mg/dL Low: <40 mg/dL Literature References: 1. Expert Panel on Integrated Guidelines for Cardiovascular Health and Risk Reduction in Children and Adolescents. Pediatrics 2011;128:S213 2. NCEP Expert Panel. Circulation 2004;110:227 Current Interpretive Data was last revised on 2018. LDL, calculated 37 <=129 mg/dL MATY JAIMES ([place]) Comment: Interpretive Data Ages < or = 19 years Acceptable: <110 mg/dL Borderline high: 110-129 mg/dL High: >or= 130 mg/dL Ages > or = 20 years Optimal: <100 mg/dL Near optimal: 100-129 mg/dL Borderline high: 130-159 mg/dL High: >160 mg/dL Calculated using the Guilherme LDL-C estimating equation. This equation was implemented on 2024. Prior to this date LDL-C was estimated using the Friedewald equation. Literature References: 1. Expert Panel on Integrated Guidelines for Cardiovascular Health and Risk Reduction in Children and Adolescents. Pediatrics 2011;128:S213 2. NCEP Expert Panel. Circulation 2004;110:227 3. Guilherme العراقي et al. SUNNI Cardiol. 2020 January 12;5(5):540-548. doi: 10.1001/jamacardio.2020.0013 Current Interpretive Data was last revised on 2024. Testing performed by: [facility], [facility], [place], [address] Non-HDL Cholesterol 66 mg/dL MATY JAIMES ([place]) Comment: Interpretive Data Ages < or = 19 years Acceptable: <120 mg/dL Borderline high: 120-144 mg/dL High: >145 mg/dL Ages > or = 20 years When triglycerides are >200 mg/dL, Non-HDL cholesterol is a secondary target of therapy with treatment goals that are 30 mg/dL greater than the LDL cholesterol target. Literature References: 1. Expert Panel on Integrated Guidelines for Cardiovascular Health and Risk Reduction in Children and Adolescents. Pediatrics 2011;128:S213 2. NCEP Expert Panel. Circulation 2004;110:227 Current Interpretive Data was last revised on 2018. Testing performed by: [facility], [place], [address] Chol/HDL ratio 3 [facility] ([place]) Comment:Testing performed by : [facility], [place], [address] Blood 03/29/2025 2:17 AM CDT 03/29/2025 4:08 AM CDT us Dank Napoles II, MD LAB BLOOD ORDERABLES F inal Result [facility] ([place]) [address] [place] [address] Department [place] [address] * (ABNORMAL) Comprehensive metabolic panel (03/29/2025 2:17 AM CDT) Sodium 141 135 - 145 mmol/L [facility] ([place]) Potassium, pl 4.7 3.3 - 4.9 mmol/L [facility] ([place]) Chloride 108 97 - 110 mmol/L [facility] ([place]) CO2 20(L) 22 - 32 mmol/L [facility] ([place]) Anion gap 13 2 - 15 mmol/L [facility] BUN 38(H) 6 - 25 mg/dL [facility] ([place]) Creatinine 1.13(H) 0.60 - 1.10 mg/dL [facility] ([place]) Glucose 197 70 - 199 mg/dL [facility] ([place]) Comment: Interpretive Data Fasting glucose >/= 126 mg/dl is diagnostic for diabetes. Fasting is defined as no caloric intake for at least 8 hours. Fasting glucose between 100 mg/dl to 125 mg/dl is diagnostic of prediabetes. In a patient with classic symptoms of hyperglycemia or hyperglycemic crisis, a random glucose >/= 200 mg/dl is diagnostic for diabetes. In the absence of unequivocal hyperglycemia, results should be confirmed by repeat testing. The classification and Diagnosis of Diabetes Diabetes Care 2021; 46: S19-S40. Current interpretive data was last revised 2022. Calcium 10.0 8.5 - 10.3 mg/dL [facility] ([place]) Bilirubin, total 0.3 0.1 - 1.2 mg/dL [facility] ([place]) Protein, pl 6.7 6.5 - 8.5 g/dL [facility] ([place]) Albumin 2.8(L) 3.5 - 5.0 g/dL [facility] ([place]) Alk phos 90 40 - 130 Units/L [facility] ([place]) ALT <5(L) 7 - 45 Units/L [facility] ([place]) AST 16 10 - 45 Units/L [facility] ([place]) Comment:HEMOLYZED; Blood 03/29/2025 2:17 AM CDT 03/29/2025 4:08 AM CDT Irina Malone MD LAB BLOOD ORDERABLES Final Re sult MATY JAIMES ([place]) 1 [facility] [place] [address] * (ABNORMAL) POCT glucose (03/28/2025 7:46 PM CDT) Glucose, POC 257(H) 70 - 199 mg/dL Blood 03/28/2025 7:46 PM CDT 03/28/2025 7:46 PM CDT us Dank Napoles II, MD LAB POCT ORDERABLES - DEVICE Final Result MATY JAIMES ([place]) 1 [facility] [place] [address] * (ABNORMAL) POCT glucose (03/28/2025 5:06 PM CDT) Glucose, POC 212(H) 70 - 199 mg/dL Blood 03/28/2025 5:06 PM CDT 03/28/2025 5:06 PM CDT us Dank Napoles II, MD LAB POCT ORDERABLES - DEVICE Final Result Performing Organization Address City/[facility]/ZIP Co de Phone Number MATY JAIMES [place]) 1 [facility] [place] [address] * (ABNORMAL) POCT glucose (03/28/2025 12:09 PM CDT) Glucose, POC 208(H) 70 - 199 mg/dL Blood 03/28/2025 12:0 9 PM CDT 03/28/2025 12:09 PM CDT us Dank Napoles II, MD LAB POCT ORDERABLES - DEVICE Final Result Performing Organization Address [facility] Co de Phone Number MATY JAIMES (HAZLET) 1 [facility] [place] [address] * POCT glucose (03/28/2025 7:32 AM CDT) Glucose, POC 189 70 - 199 mg/dL Blood 03/28/2025 7:32 AM CDT 03/28/2025 7:32 AM CDT us Dank Napoles II, MD LAB POCT ORDERABLES - DEVICE Final Result Performing Organization Address City/[facility] Co de Phone Number MATY JAIMES (HAZLET) 1 [facility] [place] [address] * (ABNORMAL) POCT glucose (03/28/2025 4:10 AM CDT) Glucose, POC 201(H) 70 - 199 mg/dL Blood 03/28/2025 4:10 AM CDT 03/28/2025 4:10 AM CDT us Irina Malone MD LAB POCT ORDERABLES - DEVICE Final Result [facility] (SCAR) 1 [facility] [employer] [place] [address] * (ABNORMAL) CBC with auto differential (03/28/2025 2:34 AM CDT) [facility] WBC 8.20 3.80 - 9.90 K/cumm Hgb 10.9(L) 11.9 - 15.5 g/dL [facility] (SCAR) Hct 36.1 35.6 - 45.5 % [facility] (SCAR) Plt 226 150 - 400 K/cumm [facility] (SCAR) MPV 10.6 9.1 - 12.3 fL [facility] ([place]AR) RBC 3.91 3.90 - 5.20 M/cumm [facility] ([place]) MCV 92.3 81.3 - 96.4 fL [facility] ([place]) MCH 27.9 27.1 - 33.3 pg [facility] ([place]) MCHC 30.2(L) 32.3 - 35.7 g/dL [facility] (SCAR) RDW CV 16.0(H) 11.1 - 14.9 % [facility] (CSAR) RDW SD 54.0(H) 35.7 - 48.1 fL [facility] (SCAR) NRBC abs 0.00 0.00 - 0.01 K/cumm [facility] (SCAR) Blood 03/28/2025 2:34 AM CDT 03/28/2025 4:04 AM CDT us Irina Malone MD LAB BLOOD ORDERABLES Final Re sult [facility] (SCAR) 1 [facility] [employer] [place] [address] * (ABNORMAL) Manual Differential (03/28/2025 2:34 AM CDT) Pathologist [facility] Differential Manual Cells Counted 100 [facility] (SCAR) Neutrophil abs 4.84 1.50 - 6.50 K/cumm [facility] (SCAR) Imm gran abs 0.33(H) 0.00 - 0.10 K/cumm [facility] (SCAR) Lymphocyte abs 2.30 0.80 - 3.30 K/cumm [facility] (SCAR) Monocyte abs 0.49 0.20 - 0.80 K/cumm [facility] (SCAR) Eosinophil abs 0.25 0.00 - 0.50 K/cumm [facility] (SCAR) Neutrophil pct 57.0 % [facility] (SCAR) Comment: Interpretive Data Percent cell count reference ranges are not reported, since discordance with absolute values may lead to misinterpretation of CBC data. Current Interpretive Data was last revised on 2017. Lymphocyte pct 22.0 % [facility] (SCAR) Comment: Interpretive Data Percent cell count reference ranges are not reported, since discordance with absolute values may lead to misinterpretation of CBC data. Current Interpretive Data was last revised on 2017. Monocyte pct 6.0 % [facility] (SCAR) Comment: Interpretive Data Percent cell count reference ranges are not reported, since discordance with absolute values may lead to misinterpretation of CBC data. Current Interpretive Data was last revised on 2017. Eosinophil pct 3.0 % [facility] (SCAR) Comment: Interpretive Data Percent cell count reference ranges are not reported, since discordance with absolute values may lead to misinterpretation of CBC data. Current Interpretive Data was last revised on 2017. Band Neutrophil pct 2.0 0.0 - 5.0 % [facility] (SCAR) Metamyelocyte pct 3.0(H) 0.0 - 0.0 % [facility] (SCAR) Myelocyte pct 1.0(H) 0.0 - 0.0 % [facility] (SCAR) Variant lymph pct 6.0(H) 0.0 - 0.0 % [facility] (SCAR) RBC morphology Consistent with RBC Indicies [facility] (SCAR) Teardrop cells 3-7/HPF(A) [facility] (SCAR) Platelet estimate Adequate CE [facility] (SCAR) Blood 03/28/2025 2:34 AM CDT 03/28/2025 4:04 AM CDT Irina Malone MD LAB BLOOD ORDERABLES Final Re sult Performing Organization Address City/[facility]/ZIP Co de Phone Number MATY JAIMES SCAR) 1 [facility] Department [place] [address] * Blood culture Blood (03/27/2025 11:43 PM CDT) Report Final Report: No growth Comment:Testing performed by : [facility], [address] [place]., [address] Blood 03/27/2025 11:4 3 PM CDT 03/28/2025 5:00 AM CDT Narrative MATY JAIMES (SCAR) - 04/01/2025 7:00 AM CDT From a different site than #1. Collection->Peripheral 1. Blood cultures are incubated for 4 days on a continuously monitored blood culture system. The first report of a negative culture is issued within 24 hours of receipt of the specimen in the laboratory. 2. Positive culture results are reported as soon as they are detected. 3. The most important factor for detection of microbes in the setting of bloodstream infection is the volume of blood submitted for culture. Failure to collect an optimal blood volume can result in false negative blood cultures. 4. For pediatric patients, the recommended blood volume to collect follows a weight based strategy. See the electronic test catalog for collection instructions. 5. For positive blood cultures, a rapid molecular test may be performed for organism identification using the rosanna ePlex blood culture identification panel for gram positive (BCID-GP) and gram negative (BCID-GN) organisms. This nucleic acid amplification test detects microbial DNA in positive blood culture broth. This assay has been cleared by the [place] Food and Drug Administration and its performance characteristics have been verified by the [facility]. For questions about this culture, contact the Microbiology Laboratory at [phone]. Interpretive data was last revised on 24. Irina Malone MD LAB MICROBIOLOGY - GENERAL OR DERABLES Final Result MATY JAIMES (SCAR) 1 [facility] Department [place] [address] * Blood culture Blood (03/27/2025 11:43 PM CDT) Report Final Report: No growth Comment:Testing performed by : [facility], 1 [facility] [place] [address] Blood 03/27/2025 11:4 3 PM CDT 03/28/2025 5:00 AM CDT Narrative MATY JAIMES (SCAR) - 04/01/2025 7:00 AM CDT Collection->Peripheral 1. Blood cultures are incubated for 4 days on a continuously monitored blood culture system. The first report of a negative culture is issued within 24 hours of receipt of the specimen in the laboratory. 2. Positive culture results are reported as soon as they are detected. 3. The most important factor for detection of microbes in the setting of bloodstream infection is the volume of blood submitted for culture. Failure to collect an optimal blood volume can result in false negative blood cultures. 4. For pediatric patients, the recommended blood volume to collect follows a weight based strategy. See the electronic test catalog for collection instructions. 5. For positive blood cultures, a rapid molecular test may be performed for organism identification using the rosanna ePlex blood culture identification panel for gram positive (BCID-GP) and gram negative (BCID-GN) organisms. This nucleic acid amplification test detects microbial DNA in positive blood culture broth. This assay has been cleared by the [place] Food and Drug Administration and its performance characteristics have been verified by the [facility]. For questions about this culture, contact the Microbiology Laboratory at [phone]. Interpretive data was last revised on 24. Irina Malone MD LAB MICROBIOLOGY - GENERAL OR DERABLES Final Result MATY JAIMES (SCAR) 1 [facility] Department [place] [address] * (ABNORMAL) POCT glucose (03/27/2025 11:41 PM CDT) Glucose, POC 221(H) 70 - 199 mg/dL Blood 03/27/2025 11:4 1 PM CDT 03/27/2025 11:41 PM CDT us Irina Malone MD LAB POCT ORDERABLES - DEVICE Final Result Performing Organization Address City/[facility] Co de Phone Number MATY JAIMES (HAZLET) 1 [facility] [place] [address] * (ABNORMAL) POCT glucose (03/27/2025 8:21 PM CDT) Glucose, POC 218(H) 70 - 199 mg/dL Blood 03/27/2025 8:21 PM CDT 03/27/2025 8:21 PM CDT Irina Malone MD LAB POCT ORDERABLES - DEVICE Final Result Performing Organization Address [facility] Co de Phone Number MATY [facility] (HAZLET) 1 [facility] [place] [address] * (ABNORMAL) POCT glucose (03/27/2025 4:50 PM CDT) Glucose, POC 226(H) 70 - 199 mg/dL Blood 03/27/2025 4:50 PM CDT 03/27/2025 4:50 PM CDT Irina Malone MD LAB POCT ORDERABLES - DEVICE Final Result Performing Organization Address City/[facility] Co de Phone Number MATY [facility] (HAZLET) 1 [facility] [place] [address] * POCT glucose (03/27/2025 12:30 PM CDT) Glucose, POC 180 70 - 199 mg/dL Blood 03/27/2025 12:3 0 PM CDT 03/27/2025 12:30 PM CDT Irina Malone MD LAB POCT ORDERABLES - DEVICE Final Result MATY JAIMES (HAZLET) 1 [facility] [place] [address] * Transfuse plasma Standard plasma (03/27/2025 10:44 AM CDT) Blood us Vishal Martinez MD BLOOD TRANSFUSION ORDERABLE S Final Result MATY JAIMES (HAZLET) 1 [facility] [place] [address] * POCT glucose (03/27/2025 9:01 AM CDT) Glucose, POC 195 70 - 199 mg/dL Blood 03/27/2025 9:01 AM CDT 03/27/2025 9:01 AM CDT Irina Malone MD LAB POCT ORDERABLES - DEVICE Final Result Performing Organization Address City/[facility]/ZIP Co de Phone Number MATY JAIMES (HAZLET) 1 [facility] [place] [address] * Transfuse RBC (03/27/2025 7:36 AM CDT) Blood Vishal Martinez MD BLOOD TRANSFUSION ORDERABLE S Final Result MATY JAIMES (HAZLET) 1 [facility] [place] [address] * (ABNORMAL) Hemoglobin and hematocrit (03/27/2025 4:54 AM CDT) Hgb 10.6(L) 11.9 - 15.5 g/dL Hct 34.2(L) 35.6 - 45.5 % MATY JAIMES (HAZLET) Blood 03/27/2025 4:54 AM CDT 03/27/2025 5:03 AM CDT us Mary Kendrick MD LAB BLOOD ORDERABLES Fin al Result MATY JAIMES (HAZLET) 1 [facility] Department [place] [address] * CT Chest Abdomen Pelvis WO Contrast (03/27/2025 4:38 AM CDT) Anatomical Region Laterality Modality Body N/A Computed Tomogra phy 03/27/2025 5:11 AM CDT Narrative 03/27/2025 5:20 AM CDT EXAM DESCRIPTION: CT CHEST ABDOMEN PELVIS WO CONTRAST REASON FOR STUDY: Sepsis Mental status change, lethargic and hypotension tonight. Hx of CKD, seizure disorder, CVA TECHNIQUE: CT scan of the chest, abdomen, and pelvis performed without intravenous and without oral contrast using helical scanning technique. Reconstructed coronal and sagittal MPR images reviewed. All images stored on PACS. Automated exposure control was used as a dose optimization technique for this examination. COMPARISON: CT of the chest, abdomen and pelvis of February 24, 2025. REFERENCE: Per ACR white paper recommendations, unless otherwise specified no follow-up imaging is recommended for incidental renal and adrenal lesions per consensus recommendations based on imaging criteria. Further lab evaluation could be pursued based on clinical findings. FINDINGS: The sensitivity for detection of solid visceral lesions is diminished without the use of intravenous contrast. CHEST NECK BASE: There is a 12 mm nodule in the left lobe of the thyroid, unchanged from immediate previous study but slightly increased in size since May 2024. HARDWARE/LINES/TUBES: A right-sided central line is seen in place with its tip terminating at the junction of the SVC and right atrium, unchanged from previous. LYMPH NODES: No axillary, mediastinal or hilar lymphadenopathy is seen by CT size criteria on this non-contrast CT. MEDIASTINUM/FLOYD: No masses seen. There is minimal atherosclerosis of the aorta. There is moderate coronary artery calcification. Heart size is normal. There is no significant pericardial effusion. PLEURA: No effusion. No pneumothorax. LUNGS: There is dependent atelectasis, unchanged from previous.. The central airways are normal. MUSCULOSKELETAL: There is mild diffuse degenerative change of the thoracic spine. There is no acute abnormality. CHEST WALL/BREAST: Unremarkable. OTHER: No other significant abnormality. ABDOMEN/PELVIS LIVER: The liver is normal in attenuation without focal lesion. GALLBLADDER: Surgically absent. BILE DUCTS: No intrahepatic or extrahepatic ductal dilatation. PANCREAS: Normal. SPLEEN: No focal lesions. Spleen is normal in size. ADRENALS: Normal. KIDNEYS/URINARY TRACT: No significant cystic or solid masses on this noncontrast enhanced exam. There is mild bilateral perinephric stranding.. No visualized renal or ureteral stones. There is njjv-ev-xthpazom bilateral hydronephrosis and hydroureter, slightly decreased from previous study and extending to the ureterovesicular junction bilaterally. The bladder is collapsed with a Luis catheter in place. There is circumferential wall thickening of the bladder out of proportion to the degree of collapse and moderate surrounding perivesicular stranding. VASCULATURE: There is mild atherosclerosis of the aorta and its pelvic branches. An IVC filter is seen in place. GI: The stomach appears normal. There is no significant small bowel dilation or visible thickening. No gross colonic abnormalities identified. The appendix is normal. PERITONEUM/MESENTERY: No ascites or free air. LYMPH NODES: There are no enlarged lymph nodes seen by CT size criteria. RETROPERITONEUM: No additional retroperitoneal abnormalities. REPRODUCTIVE: The uterus is mildly lobulated and enlarged, unchanged dating back to 2020, consistent with uterine fibroids. There is no adnexal pathology seen. MUSCULOSKELETAL: Mild multilevel degenerative changes are present in the spine. No acute bony abnormalities are seen. OTHER: No other abnormality. IMPRESSION: 1. Ijhr-hv-rtdtrbuq bilateral hydronephrosis and hydroureter, slightly decreased from previous study and extending to the ureterovesicular junction bilaterally. 2. Circumferential wall thickening of the bladder out of proportion to the degree of collapse with moderate surrounding perivesicular stranding, consistent with cystitis. Recommend correlation with urinalysis. 3. 12 mm nodule in the left lobe of the thyroid, unchanged from immediate previous study but slightly increased in size since May 2024. Based on size criteria alone, no specific follow-up imaging is indicated. If there is specific concerning laboratory or patient history, dedicated thyroid ultrasound could be considered for further evaluation. 4. Mild atherosclerosis. 5. IVC filter in place. Recommend assessment of the IVC filter management plan, and if not currently established, nonemergent patient referral to an interventional clinician for further evaluation. 6. Enlarged lobulated uterus, unchanged dating back to 2020, consistent with uterine fibroids. 7. Right-sided central line in place with its tip terminating at the junction of the SVC and right atrium, unchanged from previous. 8. Mild degenerative change of the thoracic spine. THIS IS AN ELECTRONICALLY VERIFIED FINAL REPORT 03/27/2025 5:20 AM - Electronically signed by Dianne Hankins M.D. SN: SN Report ID: [id number] Reading Location: [id number] Procedure Note Dianne Hankins MD - 03/27/2025 EXAM DESCRIPTION: CT CHEST ABDOMEN PELVIS WO CONTRAST REASON FOR STUDY: Sepsis Mental status change, lethargic and hypotension tonight. Hx of CKD,seizure disorder, CVA TECHNIQUE: CT scan of the chest, abdomen, and pelvis performed without intravenous and without oral contrast using helical scanning technique. Reconstructed coronal and sagittal MPR images reviewed. All images storedon PACS. Automated exposure control was used as a dose optimizationtechnique for this examination. COMPARISON: CT of the chest, abdomen and pelvis of February 24, 2025. REFERENCE: Per ACR white paper recommendations, unless otherwise specifiedno follow-up imaging is recommended for incidental renal and adrenal lesionsper consensus recommendations based on imaging criteria. Further labevaluation could be pursued based on clinical findings. FINDINGS: The sensitivity for detection of solid visceral lesions is diminishedwithout the use of intravenous contrast. CHEST NECK BASE: There is a 12 mm nodule in the left lobe of the thyroid,unchanged from immediate previous study but slightly increased in size sinceSeptember 2023. HARDWARE/LINES/TUBES: A right-sided central line is seen in place withits tip terminating at the junction of the SVC and right atrium, unchangedfrom previous. LYMPH NODES: No axillary, mediastinal or hilar lymphadenopathy is seen byCT size criteria on this non-contrast CT. MEDIASTINUM/FLOYD: No masses seen. There is minimal atherosclerosis ofthe aorta. There is moderate coronary artery calcification. Heart size is normal. There is no significant pericardial effusion. PLEURA: No effusion. No pneumothorax. LUNGS: There is dependent atelectasis, unchanged from previous.. The central airways are normal. MUSCULOSKELETAL: There is mild diffuse degenerative change of thethoracic spine. There is no acute abnormality. CHEST WALL/BREAST: Unremarkable. OTHER: No other significant abnormality. ABDOMEN/PELVIS LIVER: The liver is normal in attenuation without focal lesion. GALLBLADDER: Surgically absent. BILE DUCTS: No intrahepatic or extrahepatic ductal dilatation. PANCREAS: Normal. SPLEEN: No focal lesions. Spleen is normal in size. ADRENALS: Normal. KIDNEYS/URINARY TRACT: No significant cystic or solid masses on this noncontrast enhanced exam. There is mild bilateral perinephricstranding.. No visualized renal or ureteral stones. There is kcez-ma-homatcjxodtcfduhp hydronephrosis and hydroureter, slightly decreased from previous study and extending to the ureterovesicular junction bilaterally. The bladder is collapsed with a Luis catheter in place. There is circumferential wall thickening of the bladder out of proportion to the degree of collapse and moderate surrounding perivesicular stranding. VASCULATURE: There is mild atherosclerosis of the aorta and its pelvic branches. An IVC filter is seen in place. GI: The stomach appears normal. There is no significant small bowel dilation or visible thickening. No gross colonic abnormalitiesidentified. The appendix is normal. PERITONEUM/MESENTERY: No ascites or free air. LYMPH NODES: There are no enlarged lymph nodes seen by CT size criteria. RETROPERITONEUM: No additional retroperitoneal abnormalities. REPRODUCTIVE: The uterus is mildly lobulated and enlarged, unchangeddating back to 2020, consistent with uterine fibroids. There is no adnexalpathology seen. MUSCULOSKELETAL: Mild multilevel degenerative changes are present in the spine. No acute bony abnormalities are seen. OTHER: No other abnormality. IMPRESSION: 1. Nwbt-vi-vjsgbeew bilateral hydronephrosis and hydroureter, slightly decreased from previous study and extending to the ureterovesicularjunction bilaterally. 2. Circumferential wall thickening of the bladder out of proportion tothe degree of collapse with moderate surrounding perivesicular stranding, consistent with cystitis. Recommend correlation with urinalysis. 3. 12 mm nodule in the left lobe of the thyroid, unchanged fromimmediate previous study but slightly increased in size since May 2024. Basedon size criteria alone, no specific follow-up imaging is indicated. If thereis specific concerning laboratory or patient history, dedicated thyroid ultrasound could be considered for further evaluation. 4. Mild atherosclerosis. 5. IVC filter in place. Recommend assessment of the IVC filtermanagement plan, and if not currently established, nonemergent patient referral to an interventional clinician for further evaluation. 6. Enlarged lobulated uterus, unchanged dating back to 2020, consistentwith uterine fibroids. 7. Right-sided central line in place with its tip terminating at the junction of the SVC and right atrium, unchanged from previous. 8. Mild degenerative change of the thoracic spine. THIS IS AN ELECTRONICALLY VERIFIED FINAL REPORT 03/27/2025 5:20 AM - Electronically signed by Dianne Hankins M.D. SN: Report ID: [id number] Reading Location: [id number] Mary Kendrick MD IMG CT PROCEDURES Final Result * CT Head WO Contrast (03/27/2025 4:38 AM CDT) Anatomical Region Laterality Modality Head and Neck N/A Computed Tomogra phy 03/27/2025 4:57 AM CDT Narrative 03/27/2025 5:10 AM CDT EXAM DESCRIPTION: CT HEAD WO CONTRAST REASON FOR STUDY: Mental status change, unknown cause Mental status change, lethargic and hypotension tonight. Hx of CKD, seizure disorder, CVA TECHNIQUE: Axial images acquired through the brain without intravenous contrast. Coronal and sagittal reformats were performed. Images stored on PACS. Automated mA/kV exposure control was used as a dose optimization technique for this examination and patient examination was performed in strict accordance with principles of ALARA. COMPARISON: None. FINDINGS: BRAIN: There is no midline shift, mass or mass effect. The cisterns and sulci are stable. There is mild prominence of the lateral ventricles with a bifrontal distance of 3.5 cm, unchanged from immediate previous study and decreased from prior studies. The 3rd ventricle measures 6 mm in diameter, slightly decreased from previous studies. There is normal differentiation of the cardona-white matter. There is no intracranial hemorrhage. There is a stable right frontal ventricular catheter, intact in its radiodense portions. EXTRA-AXIAL SPACES: No fluid collections. No masses. CALVARIUM: No fracture. SINUSES/MASTOIDS: No fluid or mucosal thickening. ORBITS: The right globe is partially calcified and contains high density material, unchanged. The left globe is unremarkable. OTHER: No other significant abnormality. IMPRESSION: 1. No acute intracranial abnormality. 2. Stable right frontal ventricular catheter without significant hydrocephalus. 3. Stable abnormal appearance of the right globe. THIS IS AN ELECTRONICALLY VERIFIED FINAL REPORT 03/27/2025 5:10 AM - Electronically signed by Dianne Hankins M.D. SN: Report ID: [id number] Reading Location: [id number] Procedure Note Dianne Hankins MD - 03/27/2025 EXAM DESCRIPTION: CT HEAD WO CONTRAST REASON FOR STUDY: Mental status change, unknown cause Mental status change, lethargic and hypotension tonight. Hx of CKD,seizure disorder, CVA TECHNIQUE: Axial images acquired through the brain without intravenous contrast. Coronal and sagittal reformats were performed. Images storedon PACS. Automated mA/kV exposure control was used as a dose optimization technique for this examination and patient examination was performed instrict accordance with principles of ALARA. COMPARISON: None. FINDINGS: BRAIN: There is no midline shift, mass or mass effect. The cisterns and sulci are stable. There is mild prominence of the lateral ventricles witha bifrontal distance of 3.5 cm, unchanged from immediate previous study and decreased from prior studies. The 3rd ventricle measures 6 mm indiameter, slightly decreased from previous studies. There is normal differentiationof the cardona-white matter. There is no intracranial hemorrhage. There is a stable right frontal ventricular catheter, intact in its radiodenseportions. EXTRA-AXIAL SPACES: No fluid collections. No masses. CALVARIUM: No fracture. SINUSES/MASTOIDS: No fluid or mucosal thickening. ORBITS: The right globe is partially calcified and contains high density material, unchanged. The left globe is unremarkable. OTHER: No other significant abnormality. IMPRESSION: 1. No acute intracranial abnormality. 2. Stable right frontal ventricular catheter without significant hydrocephalus. 3. Stable abnormal appearance of the right globe. THIS IS AN ELECTRONICALLY VERIFIED FINAL REPORT 03/27/2025 5:10 AM - Electronically signed by Dianne Hankins M.D. SN: Report ID: [id number] Reading Location: [id number] us Mary Kendrick MD IMG CT PROCEDURES Final Result * Transfuse plasma Standard plasma (03/27/2025 3:17 AM CDT) Blood us Vishal Martinez MD BLOOD TRANSFUSION ORDERABLE S Final Result [facility] ([place]) 1 [facility] [facility] Department of Laboratories [place], [place] [id number] * XR Chest 1 Vw Portable (03/27/2025 1:23 AM CDT) Anatomical Region Laterality Modality Body, Chest N/A Computed Radiogr aphy 03/27/2025 1:35 AM CDT Narrative 03/27/2025 1:36 AM CDT EXAM DESCRIPTION: XR CHEST 1 VIEW REASON FOR STUDY: Sepsis Hypotension that started today. Hx of diabetes, CKD Former smoker TECHNIQUE: 1 radiographic view(s) of the chest. COMPARISON: 01/21/2025 FINDINGS: LUNGS: No focal opacity, pleural effusion, or pneumothorax. Poor inspiratory result with atelectatic changes at the lung bases. HEART/MEDIASTINUM: Cardiac silhouette normal in size. Mediastinal and hilar contours appear normal. LINES/TUBES: None. BONES: No acute osseous abnormality. IMPRESSION: No acute cardiopulmonary abnormality. THIS IS AN ELECTRONICALLY VERIFIED FINAL REPORT 03/27/2025 1:36 AM - Electronically signed by Steven Santos M.D. KT: MED Report ID: [id number] Reading Location: [id number] Procedure Note Steven Santos MD - 03/27/2025 EXAM DESCRIPTION: XR CHEST 1 VIEW REASON FOR STUDY: Sepsis Hypotension that started today. Hx of diabetes, CKD Former smoker TECHNIQUE: 1 radiographic view(s) of the chest. COMPARISON: 01/21/2025 FINDINGS: LUNGS: No focal opacity, pleural effusion, or pneumothorax. Poor inspiratory result with atelectatic changes at the lung bases. HEART/MEDIASTINUM: Cardiac silhouette normal in size. Mediastinal andhilar contours appear normal. LINES/TUBES: None. BONES: No acute osseous abnormality. IMPRESSION: No acute cardiopulmonary abnormality. THIS IS AN ELECTRONICALLY VERIFIED FINAL REPORT 03/27/2025 1:36 AM - Electronically signed by Steven Santos M.D. KT: KT Report ID: [id number] Reading Location: [place] [address] Mary Kendrick MD IMG XR PROCEDURES Final Result * Transfuse RBC (03/27/2025 1:23 AM CDT) Blood Vishal Martinez MD BLOOD TRANSFUSION ORDERABLE S Final Result [facility] [place]) 1 [facility] Department of Laboratories [place] [id number] * (ABNORMAL) eGFR (03/27/2025 1:21 AM CDT) eGFR 49(L) >=60 mL/min/1. 73 m2 Comment: Interpretive Data Reference Interval Normal >/= 90 mL/min/1.73m2 Mildly decreased* 60 - 89 mL/min/1.73m2 Mildly to moderately decreased 45 - 59 mL/min/1.73m2 Moderately to severely decreased 30 - 44 mL/min/1.73m2 Severely decreased 15 - 29 mL/min/1.73m2 Kidney Failure < 15 mL/min/1.73m2 *Relative to young adult level Estimated glomerular filtration rate is determined by the 2020 CKD-EPI equation recommended by the National Kidney [employer] (A Unifying Approach to GFR Estimation: Recommendations of the NKF-ASK Task Force on Reassessing the Inclusion of Race in Diagnosing Kidney Disease, JASN 2020). The CKD-EPI equation should not be used for patients with unstable renal function and has not been validated in children and those over 70. Current interpretive data was last reviewed 2021. Blood 03/27/2025 1:21 AM CDT 03/27/2025 1:22 AM CDT us Mary Kendrick MD LAB BLOOD ORDERABLES Fin al Result [facility] ([place]) 1 [facility] Department [place] [address] * (ABNORMAL) Pro B-type natriuretic peptide (03/27/2025 1:21 AM CDT) NT-proBNP 1,715(H) <=300 pg/mL Comment: Interpretive Comments: A. Dyspnea in Acute Care Setting All Ages: < 300 pg/ml, acute heart failure unlikely. < 50 yrs: 300 - 450 pg/ml, further investigation warranted. > 450 pg/ml, acute heart failure likely. 50 - 74 yrs: 300 - 900 pg/ml, further investigation warranted. > 900 pg/ml, acute heart failure likely . > or = 75 yrs: 450 - 1800 pg/ml, further investigation warranted. > 1800 pg/ml, acute heart failure likely. B. Non-acute Setting < 75 yrs < 125 pg/ml, rules out heart failure. > or = 125 pg/ml, further investigation warranted. > or = 75 yrs < 450 pg/ml, rules out heart failure. > or = 450 pg/ml, further investigation warranted. - Knowledge of each individual patient's NT-proBNP range may be more useful than using similar cut-points for every patient. Please note that marked elevations in NT-proBNP levels may be observed in state other than Left Ventricular Congestive Failure, including: acute coronary syndromes, right heart strain/failure (including pulmonary embolism and cor pulmonale), critical illness, renal failure, as well as advanced age. - References: 1. Scott REMY et.al. Eur Heart J. 2006:27:330-337. 2. Darrell RW, Veronica AM. J. AM Maynor Cardiol: Cardiovasc Imag. 2009;2: 216- 225. Interpretive Data Last Revised Date: 2018. Blood 03/27/2025 1:21 AM CDT 03/27/2025 1:22 AM CDT Mary Kendrick MD LAB BLOOD ORDERABLES Fin al Result Performing Organization Address [facility] Co de Phone Number MATY JAIMES (SCAR) 1 [facility] [place] [address] * Magnesium (03/27/2025 1:21 AM CDT) Magnesium 1.8 1.4 - 2.5 mg/dL Blood 03/27/2025 1:21 AM CDT 03/27/2025 1:22 AM CDT Mary Kendrick MD LAB BLOOD ORDERABLES Fin al Result Performing Organization Address [facility] de Phone Number MATY JAIMES (SCAR) 1 [facility] [place] [address] * (ABNORMAL) Renal function panel (03/27/2025 1:21 AM CDT) Sodium 138 135 - 145 mmol/L Potassium, pl 5.2(H) 3.3 - 4.9 mmol/L [facility] ([place]) Chloride 105 97 - 110 mmol/L [facility] ([facility] CO2 20(L) 22 - 32 mmol/L [facility] ([place]) Anion gap 13 2 - 15 mmol/L [facility] ([place]) BUN 45(H) 6 - 25 mg/dL [facility] ([place]) Creatinine 1.27(H) 0.60 - 1.10 mg/dL [facility] ([place]) Glucose 185 70 - 199 mg/dL [facility] ([place]) Comment: Interpretive Data Fasting glucose >/= 126 mg/dl is diagnostic for diabetes. Fasting is defined as no caloric intake for at least 8 hours. Fasting glucose between 100 mg/dl to 125 mg/dl is diagnostic of prediabetes. In a patient with classic symptoms of hyperglycemia or hyperglycemic crisis, a random glucose >/= 200 mg/dl is diagnostic for diabetes. In the absence of unequivocal hyperglycemia, results should be confirmed by repeat testing. The classification and Diagnosis of Diabetes Diabetes Care 2021; 46: S19-S40. Current interpretive data was last revised 2022. Calcium 9.9 8.5 - 10.3 mg/dL [facility] ([place]) Phosphorus, pl 3.1 2.3 - 4.5 mg/dL [facility] ([place]) Albumin 3.0(L) 3.5 - 5.0 g/dL [facility] ([place]) Blood 03/27/2025 1:21 AM CDT 03/27/2025 1:22 AM CDT Mary Kendrick MD LAB BLOOD ORDERABLES Fin al Result [facility] ([place]) 1 [facility] [place] [address] * POCT glucose (03/27/2025 1:16 AM CDT) Glucose, POC 169 70 - 199 mg/dL Blood 03/27/2025 1:16 AM CDT 03/27/2025 1:16 AM CDT Mary Kendrick MD LAB POCT ORDERABLES - DE VICE Final Result Performing Organization Address City/[facility]/ZIP Co de Phone Number [facility] (SCAR) 1 [facility] [place] [address] * Prepare RBC: 1 Units (03/27/2025 1:15 AM CDT) Units requested 1 Units requested Ready [facility] ([place]) Unit Number [id number] Product code [id number] [facility] ([place]) Blood Expiration Date [id number] [facility] ([place]) Product Blood Type (for scanning) 9500 [facility] ([place]) Product Blood Type ONEG [facility] ([place]) Dispense Status DISPENSED [facility] ([place]) Blood 03/27/2025 1:15 AM CDT 03/27/2025 1:15 AM CDT us Vishal Martinez MD BLOOD BANK PRODUCT ORDERABL ES Final Result MATY JAIMES (SCAR) 1 [facility] [place] [address] * Prepare plasma (03/27/2025 1:08 AM CDT) Unit Number [id number] Product code [id number] [facility] ([place]) Blood Expiration Date [id number] [facility] ([place]) Product Blood Type (for scanning) 5100 [facility] ([place]) Product Blood Type OPOS [facility] ([place]) Dispense Status DISPENSED [facility] ([place]) us Vishal Martinez MD BLOOD BANK PRODUCT ORDERABL ES Final Result Performing Organization Address [facility]/ZIP Co de Phone Number MATY JAIMES ([place]) 1 [facility] [place] [address] * (ABNORMAL) Thyroid Function [place] (03/27/2025 12:25 AM CDT) TSH 5.40(H) 0.30 - 4.20 mcIUnit/mL Blood 03/27/2025 12:2 5 AM CDT 03/27/2025 12:25 AM CDT us Mary Kendrick MD LAB BLOOD ORDERABLES Zelalem katie Result - Final Performing Organization Address City/[facility]/ZIP Co de Phone Number MATY JAIMES ([place]) 1 [facility] [place] [address] * T4, free (03/27/2025 12:25 AM CDT) Free T4 0.92 0.90 - 1.70 ng/dL Blood 03/27/2025 12:2 5 AM CDT 03/27/2025 12:25 AM CDT Narrative MATY JAIMES ([place]) - 03/27/2025 6:51 AM CDT This test was reflexed from a TSH result. us Mary Kendrick MD LAB BLOOD ORDERABLES Fin al Result MATY JAIMES ([place]) 1 [facility] Department [place] [address] * CT CRITICAL CARE ILL/INJURED PATIENT INIT 30-74 MIN (03/26/2025 11:19 PM CDT) Narrative Vishal Martinez MD - 03/26/2025 11:19 PM CDT Vishal Martinez MD 04/01/2025 1:34 PM Critical Care Performed by: Vishal Martinez MD Authorized by: Vishal Martinez MD Critical care provider statement: As reflected in the history, physical exam, orders, notes, and/or MDM, I was personally present while the patient was critically ill and provided critical care services for 46 minutes, excluding time involved in separately billable procedures. Critical care was necessary to treat or prevent imminent or life-threatening deterioration of the following condition(s): unstable vital signs and end of life care/management/discussion acute delirium and severe neurologic condition atrial fibrillation and severe cardiac condition severe gastrointestinal condition dehydration and severe metabolic condition acute blood loss anemia and severe undifferentiated anemia bacteremia, fungemia and severe infectious condition Critical care was time spent by me providing the following: continuous telemetry, continuous pulse oximetry, continuous capnography, serial bedside patient exams, serial laboratory checks and resuscitation with fluids frequent neurologic exams decision regarding NPO status supplemental oxygen active repletion of electrolytes and initiation of steroids transfusion of blood products and replacement of coagulation factors acute pain control I provided emergent necessary critical care medicine services to this patient. I ordered and reviewed test results and/or imaging studies. I spent time discussing the management of this critically ill patient with consultants and the medical staff. I spent time discussing the management and therapeutic options for this critically ill patient with the patient themselves or with the appropriate designated surrogate decision-maker. I spent time documenting in the medical record. I admitted this patient to a continuous cardiac monitored bed. I admitted this patient to an Intensive Care unit (ICU) and discussed management with the admitting team. us Vishal Martinez MD IN CLINIC/BEDSIDE ORDERABLE S Final Result * CT CRITICAL CARE ILL/INJURED PATIENT INIT 30-74 MIN (03/26/2025 11:19 PM CDT) Narrative Mary Kendrick MD - 03/26/2025 11:19 PM CDT Mary Kendrick MD 03/27/2025 6:16 AM Critical Care Performed by: Mary Kendrick MD Authorized by: Mary Kendrick MD Critical care provider statement: As reflected in the history, physical exam, orders, notes, and/or MDM, I was personally present while the patient was critically ill and provided critical care services for 38 minutes, excluding time involved in separately billable procedures. Critical care was necessary to treat or prevent imminent or life-threatening deterioration of the following condition(s): undifferentiated shock In addition to critical care documented by Dr. Martinez us Mary Kendrick MD IN CLINIC/BEDSIDE ORDERA BLES Final Result * Prepare plasma: 2 Units Standard plasma (03/26/2025 10:20 PM CDT) Plasma # of units / Ready 2 Plasma # of units / Ready Ready [facility] (SC[place]) Unit Number [id number] Product code [id number] [facility] ([place]) Blood Expiration Date [id number] [facility] ([place]) Product Blood Type (for scanning) 5100 [facility] ([place]) Product Blood Type OPOS [facility] ([place]) Dispense Status DISPENSED [facility] ([place]) Blood Venous blood specimen / Unknown 03/26/2025 10:20 PM CDT 03/26/2025 10:19 PM CDT us Vishal Martinez MD BLOOD BANK PRODUCT ORDERABL ES Final Result MATY JAIMES (SCAR) 1 [facility] Department [place] [address] * Prepare RBC: 1 Units (03/26/2025 8:54 PM CDT) Units requested 1 Units requested Ready MATY JAIMES (SCAR) Unit Number [id number] Product code [id number] [facility] ([place]) Blood Expiration Date [id number] [facility] ([place]) Product Blood Type (for scanning) 9500 [facility] ([place]) Product Blood Type ONEG [facility] ([place]) Dispense Status DISPENSED [facility] ([place]) Blood 03/26/2025 8:54 PM CDT 03/26/2025 8:53 PM CDT Vishal Martinez MD BLOOD BANK PRODUCT ORDERABL ES Final Result MATY JAIMES (SCAR) 1 [facility] Department [place] [address] * (ABNORMAL) Blood culture Blood (03/26/2025 8:38 PM CDT) Direct Specimen Exam Stain: Gram Positive Cocci in clusters Time to culture positivity (aerobic media): 18.7 hours Time to culture positivity (anaerobic media): 20.6 hours Notification of: Gram Positive Cocci in clusters called to and read back by: Wallace MOSS [phone] on 03/27/2025 19:18:17 by: KIKI Dang Notification of: Gram Positive Cocci in clusters called to and read back by: Som Hdz [employer]ER on 03/27/2025 19:20:14 by: Lizandro Gonsalez Comment:Testing performed by : [facility], [address] [facility], [place]., [address] Direct Specimen Exam Molecular Analysis: Staphylococcus species detected by the rosanna eplex BCID-GP panel. Single positive culture may represent contamination. This is most suggestive of a coagulase-negative Staphylococcus species. Please refer to final culture-based result for confirmation. This test does not exclude the possibility of a mixed bacterial infection. Notification of: Staphylococcus species called to and read back by: Debora Joel MLT ,[phone] on 03/27/2025 21:07:29 by: Elana JAIMES (SCAR) Comment:Testing performed by : [facility], [address] [place]., [address] Report Final Report: Staphylococcus epidermidis Single blood culture positive for this microorganism. Isolate is a possible contaminant. If a similar isolate is recovered from a second blood culture collected within 3 days of this culture, both will be evaluated and, if determined to be the same species, antimicrobial susceptibility testing will be performed. Staphylococcus epidermidis #2 Single blood culture positive for this microorganism. Isolate is a possible contaminant. If a similar isolate is recovered from a second blood culture collected within 3 days of this culture, both will be evaluated and, if determined to be the same species, antimicrobial susceptibility testing will be performed. (.) MATY JAIMES (SCAR) Comment:Testing performed by : [facility], [address] [place]., [address] Organism STAPHYLOCOCCUS EPIDERMIDIS MATY JAIMES (SCAR) Organism STAPHYLOCOCCUS EPIDERMIDIS MATY [facility] (SCAR) Blood 03/26/2025 8:38 PM CDT 03/26/2025 11:54 PM CDT Narrative MATY JAIMES (SCAR) - 03/30/2025 10:28 AM CDT Collection->Peripheral 1. Blood cultures are incubated for 4 days on a continuously monitored blood culture system. The first report of a negative culture is issued within 24 hours of receipt of the specimen in the laboratory. 2. Positive culture results are reported as soon as they are detected. 3. The most important factor for detection of microbes in the setting of bloodstream infection is the volume of blood submitted for culture. Failure to collect an optimal blood volume can result in false negative blood cultures. 4. For pediatric patients, the recommended blood volume to collect follows a weight based strategy. See the electronic test catalog for collection instructions. 5. For positive blood cultures, a rapid molecular test may be performed for organism identification using the rosanna ePlex blood culture identification panel for gram positive (BCID-GP) and gram negative (BCID-GN) organisms. This nucleic acid amplification test detects microbial DNA in positive blood culture broth. This assay has been cleared by the [place] Food and Drug Administration and its performance characteristics have been verified by the [facility]. For questions about this culture, contact the Microbiology Laboratory at [phone]. Interpretive data was last revised on 24. Vishal Martinez MD LAB MICROBIOLOGY - GENERAL ORDERABLES Final Result MATY GOLDSMITH) 1 [facility] Department [place] [address] * Blood culture Blood (03/26/2025 8:22 PM CDT) Report Final Report: No growth Comment:Testing performed by : [facility], [address] [place]., [address] Blood 03/26/2025 8:22 PM CDT 03/26/2025 11:54 PM CDT Narrative MATY JAIMES (SCAR) - 03/31/2025 7:00 AM CDT Collection->Peripheral 1. Blood cultures are incubated for 4 days on a continuously monitored blood culture system. The first report of a negative culture is issued within 24 hours of receipt of the specimen in the laboratory. 2. Positive culture results are reported as soon as they are detected. 3. The most important factor for detection of microbes in the setting of bloodstream infection is the volume of blood submitted for culture. Failure to collect an optimal blood volume can result in false negative blood cultures. 4. For pediatric patients, the recommended blood volume to collect follows a weight based strategy. See the electronic test catalog for collection instructions. 5. For positive blood cultures, a rapid molecular test may be performed for organism identification using the rosanna ePlex blood culture identification panel for gram positive (BCID-GP) and gram negative (BCID-GN) organisms. This nucleic acid amplification test detects microbial DNA in positive blood culture broth. This assay has been cleared by the [place] Food and Drug Administration and its performance characteristics have been verified by the [facility]. For questions about this culture, contact the Microbiology Laboratory at [phone]. Interpretive data was last revised on 24. Vishal Martinez MD LAB MICROBIOLOGY - GENERAL ORDERABLES Final Result MATY JAIMES ([place]) 1 [facility] [place] [address] * ABO/Rh (03/26/2025 8:01 PM CDT) ABO/Rh O Negative Blood 03/26/2025 8:01 PM CDT 03/26/2025 8:17 PM CDT Narrative MATY JAIMES (SCAR) - 03/26/2025 8:42 PM CDT Has the patient had Daratumumab or Isatuximab in the past 6 months?->Unknown Vishal Martinez MD LAB BLOOD BANK TEST ORDERAB LES Final Result Performing Organization Address [facility] Co de Phone Number MATY JAIMES ([place]) [address] [place] [address] [place] [address] * Crossmatch (03/26/2025 8:01 PM CDT) Crossmatch Compatible [facility] ([place]) Unit number for crossmatch [id number] [facility] ([place]) Crossmatch Compatible [facility] ([place]) Unit number for crossmatch [id number] [facility] ([place]) Blood 03/26/2025 8:01 PM CDT 03/26/2025 8:17 PM CDT Vishal Martinez MD LAB BLOOD BANK TEST ORDERAB LES Edited Result - Final Performing Organization Address City/[facility]/ZIP Co de Phone Number MATY JAIMES (HA[place]) 1 [facility] [place] [address] * Antibody screen (03/26/2025 8:01 PM CDT) Mervin, indirect, Gel Interpretation Negative ABSC Blood 03/26/2025 8:01 PM CDT 03/26/2025 8:17 PM CDT Narrative [facility] (SCAR) - 03/26/2025 8:58 PM CDT Has the patient had Daratumumab or Isatuximab in the past 6 months?->Unknown Vishal Martinez MD LAB BLOOD BANK TEST ORDERAB LES Final Result MATY JAIMES (SCAR) 1 [facility] Department [place] [address] * (ABNORMAL) Urinalysis reflex to microscopic and culture Urine (03/26/2025 8:00 PM CDT) Color, ur Yellow Yellow Clarity, ur Turbid(A) Clear [facility] (SCAR) Specific gravity, ur 1.008 1.003 - 1.030 [facility] ([place]) pH, urine 6.0 [facility] (SCAR) Comment: Interpretive Data U rine pH is affected by diet, medications, systemic acid-base disturbances, and renal tubular function. pH may affect urinary stone formation. For example, urine pH below 6.0 may help reduce the tendency for calcium phosphate stones and pH greater than 6.0 may reduce the tendency for uric acid stone formation. Source: [facility] [place] Current Interpretive Data was last revised on 2017 Protein, ur ql 2+(A) Negative [facility] (SCAR) Glucose, ur ql 4+(A) Negative [facility] ([place]) Ketones, ur Negative Negative [facility] ([place]) Bilirubin, ur Negative Negative [facility] ([place]) Blood, ur 3+(A) Negative [facility] ([place]) Urobilinogen, ur <2.0 <2.0 mg/dL [facility] ([place]) Nitrite, ur Positive(A) Negative [facility] ([place]) Leukocyte esterase, ur 4+(A) Negative [facility] ([place]) UA reflex comment Reflex to microscopic UA will be performed. [facility] ([place]) Urine 03/26/2025 8:00 PM CDT 03/26/2025 8:17 PM CDT us Vishal Martinez MD LAB MICROBIOLOGY - GENERAL ORDERABLES Final Result MATY JAIMES (SCAR) 1 [facility] [place] [address] * (ABNORMAL) Urinalysis, microscopic only (03/26/2025 8:00 PM CDT) WBC, ur >50(A) 0 - 5 /HPF RBC, ur >50(A) 0 - 2 /HPF [facility] ([place]) Yeast, ur 4+(A) [facility] ([place]) Mucous, ur Present(A) CERNER A (SCAR) Culture Reflex Comment Reflex to urine culture will be performed. MATY JAIMES (SCAR) Urine 03/26/2025 8:00 PM CDT 03/26/2025 8:17 PM CDT Vishal Martinez MD LAB URINE ORDERABLES Final Result Performing Organization Address City/[facility] Co de Phone Number MATY JAIMES (SCAR) 1 [facility] [place] [address] * (ABNORMAL) Urine culture Urine (03/26/2025 8:00 PM CDT) Report Final Report: Greater than or equal to 100,000 colonies/mL of Pseudomonas aeruginosa (.) Comment:Testing performed by : [facility], [address] [place]., [address] Organism PSEUDOMONAS AERUGINOSA MATY JAIMES (SCAR) Urine 03/26/2025 8:00 PM CDT 03/26/2025 11:54 PM CDT Narrative MATY JAIMES (SCAR) - 03/28/2025 3:53 PM CDT Urine culture reflexed based upon urinalysis results. Testing performed by [facility] ([phone]) Organism Antibiotic Method Susceptibility Pseudomonas aeruginosa Aztreonam INTERPRETATION Susceptible Pseudomonas aeruginosa Ceftazidime INTERPRETATION Susceptible Pseudomonas aeruginosa Ciprofloxacin INTERPRETATION Intermediate Pseudomonas aeruginosa Cefepime INTERPRETATION Susceptible Pseudomonas aeruginosa Amikacin INTERPRETATION Susceptible Pseudomonas aeruginosa Imipenem INTERPRETATION Susceptible Pseudomonas aeruginosa Meropenem INTERPRETATION Susceptible Pseudomonas aeruginosa Piperacillin/Tazobactam INTERPR ETATION Susceptible Pseudomonas aeruginosa Tobramycin INTERPRETATION Susceptible Vishal Martinez MD LAB MICROBIOLOGY - GENERAL ORDERABLES Final Result MATY JAIMES ([place]) [address] [place] [address] * Sepsis Lactate w/ Reflex (03/26/2025 7:49 PM CDT) [facility] Sepsis Lactate 1.8 0.7 - 2.0 mmol/L Blood 03/26/2025 7:49 PM CDT 03/26/2025 7:52 PM CDT Vishal Martinez MD LAB BLOOD ORDERABLES Final Result Performing Organization Address [facility] Co de Phone Number MATY JAIMES ([place]LET) [address] [place] [address] [place] [address] * (ABNORMAL) Iron profile w/ IBC (03/26/2025 7:49 PM CDT) [facility] Iron 20(L) 35 - 145 mcg/dL TIBC 201(L) 250 - 400 mcg/dL [facility] ([place]) Transferrin saturation 10(L) 20 - 50 % [facility] ([place]) Blood 03/26/2025 7:49 PM CDT 03/26/2025 8:54 PM CDT Vishal Martinez MD LAB BLOOD ORDERABLES Final Result Performing Organization Address City/[facility]/ZIP Co de Phone Number MATY JAIMES (HAZLET) [address] [place] [id number] * eGFR (03/26/2025 7:47 PM CDT) [facility] eGFR 63 >=60 mL/min/1. 73 m2 Comment: Interpretive Data Reference Interval Normal >/= 90 mL/min/1.73m2 Mildly decreased* 60 - 89 mL/min/1.73m2 Mildly to moderately decreased 45 - 59 mL/min/1.73m2 Moderately to severely decreased 30 - 44 mL/min/1.73m2 Severely decreased 15 - 29 mL/min/1.73m2 Kidney Failure < 15 mL/min/1.73m2 *Relative to young adult level Estimated glomerular filtration rate is determined by the 2020 CKD-EPI equation recommended by the National Kidney Foundation (A Unifying Approach to GFR Estimation: Recommendations of the NKF-ASK Task Force on Reassessing the Inclusion of Race in Diagnosing Kidney Disease, JASN 202). The CKD-EPI equation should not be used for patients with unstable renal function and has not been validated in children and those over 70. Current interpretive data was last reviewed 2021. Blood 03/26/2025 7:47 PM CDT 03/26/2025 7:53 PM CDT us Vishal Martinez MD LAB BLOOD ORDERABLES Final Result [facility] ([place]) 1 [facility] Department [place] [address] * (ABNORMAL) Differential, auto (03/26/2025 7:47 PM CDT) Neutrophil abs 8.54(H) 1.50 - 6.50 K/cumm Imm gran abs 0.45(H) 0.00 - 0.10 K/cumm [facility] (SCAR) Lymphocyte abs 1.74 0.80 - 3.30 K/cumm [facility] ([place]) Monocyte abs 2.32(H) 0.20 - 0.80 K/cumm [facility] ([place]) Eosinophil abs 0.06 0.00 - 0.50 K/cumm [facility] ([place]) Basophil abs 0.05 0.00 - 0.10 K/cumm [facility] ([place]) Neutrophil pct 64.9 % [facility] (SC[place]) Comment: Interpretive Data Percent cell count reference ranges are not reported, since discordance with absolute values may lead to misinterpretation of CBC data. Current Interpretive Data was last revised on 2017. Imm gran pct 3.4 % [facility] ([place]) Comment: Interpretive Data Percent cell count reference ranges are not reported, since discordance with absolute values may lead to misinterpretation of CBC data. Current Interpretive Data was last revised on 2017. Lymphocyte pct 13.2 % [facility] ([place]) Comment: Interpretive Data Percent cell count reference ranges are not reported, since discordance with absolute values may lead to misinterpretation of CBC data. Current Interpretive Data was last revised on 2017. Monocyte pct 17.6 % [facility] ([place]) Comment: Interpretive Data Percent cell count reference ranges are not reported, since discordance with absolute values may lead to misinterpretation of CBC data. Current Interpretive Data was last revised on 2017. Eosinophil pct 0.5 % [facility] ([place]) Comment: Interpretive Data Percent cell count reference ranges are not reported, since discordance with absolute values may lead to misinterpretation of CBC data. Current Interpretive Data was last revised on 2017. Basophil pct 0.4 % [facility] ([place]) Comment: Interpretive Data Percent cell count reference ranges are not reported, since discordance with absolute values may lead to misinterpretation of CBC data. Current Interpretive Data was last revised on 2017. Blood 03/26/2025 7:47 PM CDT 03/26/2025 7:53 PM CDT Vishal Martinez MD LAB BLOOD ORDERABLES Final Result MATY JAIMES ([place]) 1 [facility] Department [place] [address] * (ABNORMAL) CBC with auto differential (03/26/2025 7:47 PM CDT) WBC 13.16(H) 3.80 - 9.90 K/cumm Hgb 8.2(L) 11.9 - 15.5 g/dL MATY JA[facility] (SCAR) Hct 26.8(L) 35.6 - 45.5 % MATY JAIM[facility] ([place]ZLET) Plt 255 150 - 400 K/cumm MATY [facility] ([place]) MPV 9.1 9.1 - 12.3 fL [facility] ([place]) RBC 2.99(L) 3.90 - 5.20 M/cumm [facility] ([place]) MCV 89.6 81.3 - 96.4 fL [facility] ([place]) MCH 27.4 27.1 - 33.3 pg [facility] ([place]) MCHC 30.6(L) 32.3 - 35.7 g/dL [facility] ([place]) RDW CV 15.4(H) 11.1 - 14.9 % [facility] ([place]) RDW SD 50.4(H) 35.7 - 48.1 fL [facility] ([place]) NRBC abs 0.00 0.00 - 0.01 K/cumm [facility] ([place]) Blood 03/26/2025 7:47 PM CDT 03/26/2025 7:53 PM CDT Vishal Martinez MD LAB BLOOD ORDERABLES Final Result Performing Organization Address City/[facility]/ZIP Co de Phone Number MATY JAIMES (SCAR) [address] [place] [address] [place] [address] * (ABNORMAL) Reticulocyte Count (03/26/2025 7:47 PM CDT) [facility] Retics, absolute 52 20 - 87 K/cumm Retics 1.7 0.4 - 2.9 % [facility] ([place]) Reticulocyte Hgb 30.3(L) 30.5 - 38.0 pg [facility] ([place]) Blood 03/26/2025 7:47 PM CDT 03/26/2025 8:51 PM CDT Vishal Martinez MD LAB BLOOD ORDERABLES Final Result MATY JAIMES (SCAR) 1 [facility] [place] [address] * (ABNORMAL) Comprehensive metabolic panel (03/26/2025 7:47 PM CDT) [facility] Sodium 138 135 - 145 mmol/L Potassium, pl 4.5 3.3 - 4.9 mmol/L [facility] ([place]) Chloride 109 97 - 110 mmol/L [facility] ([place]) CO2 16(L) 22 - 32 mmol/L [facility] ([place]) Anion gap 13 2 - 15 mmol/L [facility] ([place]) BUN 33(H) 6 - 25 mg/dL [facility] ([place]) Creatinine 1.02 0.60 - 1.10 mg/dL [facility] ([place]) Glucose 150 70 - 199 mg/dL [facility] ([place]) Comment: Interpretive Data Fasting glucose >/= 126 mg/dl is diagnostic for diabetes. Fasting is defined as no caloric intake for at least 8 hours. Fasting glucose between 100 mg/dl to 125 mg/dl is diagnostic of prediabetes. In a patient with classic symptoms of hyperglycemia or hyperglycemic crisis, a random glucose >/= 200 mg/dl is diagnostic for diabetes. In the absence of unequivocal hyperglycemia, results should be confirmed by repeat testing. The classification and Diagnosis of Diabetes Diabetes Care 2021; 46: S19-S40. Current interpretive data was last revised 2022. Calcium 8.0(L) 8.5 - 10.3 mg/dL [facility] ([place]) Bilirubin, total <0.2 0.1 - 1.2 mg/dL [facility] ([place]) Protein, pl 4.8(L) 6.5 - 8.5 g/dL [facility] ([place]) Albumin 1.9(L) 3.5 - 5.0 g/dL [facility] ([place]) Alk phos 72 40 - 130 Units/L [facility] ([place]) ALT <5(L) 7 - 45 Units/L [facility] ([place]) AST 10 10 - 45 Units/L [facility] ([place]) Blood 03/26/2025 7:47 PM CDT 03/26/2025 7:53 PM CDT us Vishal Martinez MD LAB BLOOD ORDERABLES Final Result [facility] (SC[place]) 1 [facility] Department [place] [address] * POCT glucose (03/26/2025 7:41 PM CDT) Glucose, POC 171 70 - 199 mg/dL Blood 03/26/2025 7:41 PM CDT 03/26/2025 7:41 PM CDT us Notinfile Unknown LAB POCT ORDERABLES - DEVICE F inal Result Performing Organization Address City/[facility]/ZIP Co de Phone Number MATY JAIMES (HAZ[place]) 1 [facility] Department [place] [address] * ECG 12 lead (03/26/2025 7:39 PM CDT) 03/26/2025 7:39 PM CDT Narrative [facility] - 03/27/2025 6:52 AM CDT Vent Rate: 79 bpm RR Interval: [address] Interval: 0 msec QRS Duration: 149 msec QT Interval: 399 msec QTC Interval: 433 msec P-R-T [place]: [id number] - -62 - 103 degrees IMPRESSION: UNCERTAIN REGULAR RHYTHM, probable sinus rhythm with first-degree AV block RIGHT BUNDLE BRANCH BLOCK [120+ ms QRS DURATION, UPRIGHT V1, 40+ ms S IN I/aVL/V4/V5/V6] LEFT ANTERIOR FASCICULAR BLOCK [QRS AXIS <= -45, QR IN I, RS IN II] LEFT VENTRICULAR HYPERTROPHY AND ST-T CHANGE [VOLTAGE CRITERIA PLUS ST/T ABNORMALITY] POSSIBLE ANTEROSEPTAL MYOCARDIAL INFARCTION , OF INDETERMINATE AGE [30 ms Q WAVE IN V1-V4] ABNORMAL ECG Need repeat EKG with stable baseline for accurate rhythm assessment Electronically Signed By: Rob Zee MD us Vishal Martinez MD ECG ORDERABLES Final Resul t Performing Organization Address [facility] Co de Phone Number [facility] [employer] [facility] * COLONOSCOPY (03/08/2021 3:39 PM CDT) Anatomical Region Laterality Modality Other Narrative Procedure Note Ector Keyes MD - 03/08/2021 3:39 PM CDT ENDOSCOPY LAB Patient Name: Opal Alexander Procedure Date: 03/08/2021 3:39 PM Admit Type: Inpatient Room: [facility] 3 Date of : 1965 Instrument Name: [id number] Gender: Female Note Status: Finalized Procedure: Colonoscopy Indications: Last colonoscopy: date unknown, Abnormal CT of theGI tract, Change in bowel habits Providers: Ector Keyes M.D. Referring MD: Kulwinder Jackson M.D., August Stringer D.O. Medicines: Propofol per Anesthesia Complications: No immediate complications. Estimated blood loss:None. Estimated Blood Loss: Estimated blood loss: none. Procedure: Pre-Anesthesia Assessment: - The risks and benefits of the procedure and the sedation options and risks were discussed with the patient. All questions were answered and informed consent was obtained. The benefits, risks and alternatives of theprocedure and sedation were discussed and informed consentwas obtained. All questions were answered. Please referto the signed informed consent document in the medical record. The scope was passed under direct vision.The Colonscope was introduced through the anus and advanced to the the terminal ileum, with identification of the appendiceal orifice and IC valve. The colonoscopy was performed without difficulty. The patient tolerated the procedurewell. The quality of the bowel preparation was evaluated using the BBPS ([place] Bowel Preparation Scale)with scores of: Right Colon = 2 (minor amount ofresidual staining, small fragments of stool and/or opaque liquid, but mucosa seen well), Transverse Colon = 2 (minor amount of residual staining, small fragmentsof stool and/or opaque liquid, but mucosa seen well)and Left Colon = 2 (minor amount of residual staining, small fragments of stool and/or opaque liquid, but mucosa seen well). The total BBPS score equals 6.The quality of the bowel preparation was fair. Thebowel preparation used was MoviPrep via split dose instruction. Bowel prep was administered using asplit dose. Findings: The entire examined colon appeared normal on direct and retroflexion views. The terminal ileum appeared normal. Impression: - Preparation of the colon was fair. - The entire examined colon is normal on direct and retroflexion views. - No large or obstructing lesions seen. Recommendation: - Repeat colonoscopy at the next availableappointment or within one year because the bowel preparationwas not optimal. - Reevaluate if unexplained bleeding or anemiadevelop Attending Participation: I personally performed the entire procedure. Electronically Signed by Ector Keyes M.D. Ector Keyes M.D. 03/08/2021 4:04:47 PM Number of Addenda: 0 Note Initiated On: 03/08/2021 3:39 PM us Ector Keyes MD ENDOSCOPY PROCEDURES Final Re sult * Hepatitis C antibody (12/17/2017 2:35 PM CDT) Hep C Ab Nonreactive Nonreactive [facility] Comment: Interpretive Data Positive and greyzone results should be confirmed by a molecular method. If positive or greyzone, a second separately collected sample should be submitted for Hepatitis C Virus RNA. Detection and Quantitation by Real-Time Reverse Automobile Body Repair Supervisor-PCR.Current Interpretive data was last revised on 2017. Blood specimen (specimen) 12/17/2017 2:35 PM CDT 12/17/2017 3:28 PM CDT Alondra SUAZO - 12/18/2017 10:01 AM CDT us Notinfile Unknown LAB MICROBIOLOGY - GENERAL ORD ERABLES Edited Result - Final [facility] Department [place] [address] from Last 3 Months or Most Recently Relevant to Health Maintenance Insurance [facility] Advance Directives For more information, please contact: [phone] * Full Code (Latest Code Status on File) Date Activated Date Inactivated Comments 04/18/2025 5:22 PM 04/22/2025 11:48 PM * Full Code Date Activated Date Inactivated Comments 03/28/2025 3:34 PM 03/30/2025 4:55 PM * Full Code Date Activated Date Inactivated Comments 02/24/2025 4:27 PM 02/27/2025 11:51 PM * Full Code Date Activated Date Inactivated Comments 01/25/2025 2:40 PM 01/27/2025 10:35 PM * Full Code Date Activated Date Inactivated Comments 01/21/2025 11:02 PM 01/22/2025 9:34 PM Care Teams Custom Ski Maker Relationship Specialty Start Date End Date Kulwinder Jackson MD PCP - General 06/05/16 Susan Brantley MD Consulting Physician Gastroenterology 04/07/18 Helen Valles MD Consulting Physician Neurology 04/07/18 [place] [id number] [address] Consulting Physician Urology 03/12/21 [place] [id number] [address] Consulting Physician Gastroenterology 03/12/21
--- OUTSIDE RECORDS SUMMARY | 2025-05-31 16:04 | XMS_ITS | Clinical Summary ---
Author Organization [facility] Address [address] [place] [address] Phone Care Team Providers Care Manager Stars Name Role Phone Kulwinder Jackson MD Primary Care Provider [phone] Allergies Active Allergy Reactions Criticality Noted Date Comments Amoxicillin Unknown 04/04/2025 Metformin Diarrhea 04/04/2025 Medications acetaminophen (TYLENOL) 500 MG Tablet Take 500 mg by mouth every 4 hours as needed for Pain. Active oxyCODONE (ROXICODONE) 5 MG TabletIndicatio ns:Other chronic pain Take 1 Tablet by mouth every 4 hours as needed for Moderate or more severe pain. 120 Tablet 06/13/20 24 Active divalproex (DEPAKOTE) 500 MG Tablet Delayed Response Take 500 mg by mouth 2 times daily. one tablet in am and 2 tablets in evening Active sacubitril-vals donita (Entresto) 24-26 MG Tablet Take 1 Tablet by mouth 2 times daily. Active docusate sodium (Colace) 100 MG Capsule Take 1 Tablet by mouth 2 times daily. Active pantoprazole (PROTONIX) 40 MG Tablet Delayed Response Take 1 Tablet by mouth daily. Active metoprolol Succinate (TOPROL-XL) 25 MG TABLET SR 24 HR Take 1 Tablet by mouth daily. Active furosemide (LASIX) 20 MG Tablet Take 1 Tablet by mouth daily. only gives prn for lower extremity swelling Active DULoxetine (CYMBALTA) [address] Particles Take 1 Capsule by mouth nightly. Active ondansetron (ZOFRAN-ODT) 4 MG TABLET DISPERSIBLE 2 Tablets by Sublingual route every 8 hours as needed for Nausea - 1st line. Active insulin glargine (Lantus SoloStar) 100 UNIT/ML Solution Pen-injector 40 Units by Subcutaneous route nightly. Active apixaban (ELIQUIS) 5 MG Tablet Take 1 Tablet by mouth 2 times daily. Active busPIRone (BUSPAR) 10 MG Tablet Take 1 Tablet by mouth 2 times daily. Active insulin lispro (HumaLOG) 100 UNIT/ML Solution 9 Units by Subcutaneous route 3 times daily (with meals). Active pregabalin (LYRICA) 200 MG Capsule Take 200 mg by mouth 3 times daily. Active atorvastatin (LIPITOR) 40 MG Tablet Take 40 mg by mouth daily. Active Dulaglutide (Trulicity) 0.75 MG/0.5ML Solution Auto-injector Take 0.75 mg by mouth once a week. Active ondansetron (ZOFRAN) 4 MG Tablet [The details of the medication are not available because there are pending changes by a home health clinician.] 10 Tab 0 06/30/20 16 025 Discontin ued(Thera py completed ) HYDROcodone-nubia taminophen (NORCO) 5-325 MG Tablet [The details of the medication are not available because there are pending changes by a home health clinician.] 20 Tab 0 06/30/20 16 025 Discontin ued(Thera py completed ) ketorolac (TORADOL) 10 MG Tablet [The details of the medication are not available because there are pending changes by a home health clinician.] 20 Tab 10/16/19 18 025 Discontin ued(Thera py completed ) prochlorperazin e (COMPAZINE) 10 MG Tablet [The details of the medication are not available because there are pending changes by a home health clinician.] 20 Tab 10/16/19 18 025 Discontin ued(Med List Clean Up) pregabalin (Lyrica) 150 MG CapsuleIndicati ons:Other chronic pain [The details of the medication are not available because there are pending changes by a home health clinician.] 60 Capsule 2 01/21/20 24 025 Discontin ued(Med List Clean Up) pregabalin (Lyrica) 150 MG CapsuleIndicati ons:Other chronic pain [The details of the medication are not available because there are pending changes by a home health clinician.] 60 Capsule 06/09/20 24 025 Discontin ued(Dose adjustmen t) Active Problems No known active problems Encounters Date Type Department Care Team Description 05/24/2025 12:00 PM CDT Home Care Visit [address] [address] Opal Becker, LUPE SN - OASIS DISCHARGE 05/18/2025 10:30 AM CDT Home Care Visit [address] [address] Opal Becker, LUPE SN - HOME VISIT 05/13/2025 Home Care Visit [address] [address] Noris Estrada OT OT - DISCHARGE SUMMARY 05/12/2025 11:00 AM CDT Home Care Visit [address] [address] Opal Becker, LUPE SN - HOME VISIT 05/09/2025 9:30 AM CDT Home Care Visit [address] [address] Savita Talley, PT PT - DISCIPLINE DISCHARGE 05/09/2025 9:30 AM CDT Home Care Visit [address] [address] Veronica Aguilera, MANAGER PULMONARY OT - DISCIPLINE DISCHARGE 05/09/2025 Home Care Visit [address] [address] Veronica Aguilera, KATHLEEN CASE COMMUNICATION 05/08/2025 Home Care Visit [address] [address] Savita Talley, PT TELEPHONE ENCOUNTER 05/04/2025 9:30 AM CDT Home Care Visit [address] [address] Veronica Aguilera, KATHLEEN OT - HOME VISIT 05/04/2025 9:00 AM CDT Home Care Visit [address] [address] Daria Fleming, HAZARDOUS MATERIAL TECHNICIAN PT - HOME VISIT 05/04/2025 Home Care Visit [address] [address] Daria Fleming, HAZARDOUS MATERIAL TECHNICIAN CASE COMMUNICATION 05/04/2025 Travel 05/03/2025 11:00 AM CDT Home Care Visit [address] [address] Opal Becker, LUPE SN - HOME VISIT 05/02/2025 9:30 AM CDT Home Care Visit [address] [address] Daria Fleming, HAZARDOUS MATERIAL TECHNICIAN PT - HOME VISIT 05/02/2025 9:00 AM CDT Home Care Visit [address] [address] Veronica Aguilera, KATHLEEN OT - HOME VISIT 05/02/2025 Travel 04/28/2025 9:00 AM CDT Home Care Visit [address] [address] Daria Fleming, HAZARDOUS MATERIAL TECHNICIAN PT - HOME VISIT 04/28/2025 9:00 AM CDT Home Care Visit [address] [address] Noris Estrada OT OT - INITIAL EVALUATION 04/28/2025 Travel 04/26/2025 9:30 AM CDT Home Care Visit [address] [address] Savita Talley, PT PT - INITIAL EVALUATION 04/26/2025 Home Care Visit [address] [address] Opal Gurrola RN SN - WOUND/OSTOMY CONSULTATION 04/25/2025 Home Care Visit [address] [address] Noris Estrada OT TELEPHONE ENCOUNTER 04/24/2025 2:00 PM CDT Home Care Visit [address] [address] Opal Becker, LUPE SN - OASIS RESUMPTION OF CARE Discharge Disposition: Discharged to home or Selfcare 04/24/2025 Plan of Care Documentation [address] [address] 04/23/2025 Home Health Resumption of Care Planning [address] [address] 04/20/2025 Home Care Visit [address] [address] Opal Becker, LUPE SN - OASIS TRANSFER W/OUT DC 04/19/[address] [address] Isela Hall, LUPE Pt. in the hospital 04/18/2025 2:00 PM CDT Home Care Visit [address] [address] Opal Becker, LUPE SN - HOME VISIT 04/13/2025 3:00 PM CDT Home Care Visit [address] [address] Anna Christianson RN SN - LAB 04/13/2025 Lab Requisition [facility] [address] [place] [address] Kulwinder Jackson MD Urinary tract infection, site not specified 04/13/2025 Lab Requisition [facility] [address] [place] [address] Kulwinder Jackson MD Urinary tract infection, site not specified 04/12/2025 Home Care Visit [address] [address] Opal Becker, RN CASE COMMUNICATION 04/12/2025 Home Care Visit [address] [address] Opal Becker, LUPE TELEPHONE ENCOUNTER 04/12/2025 Home Care Visit [address] [address] Nicolle Marin, RADIO PRESENTER TELEPHONE ENCOUNTER 2025 Home Care Visit [address] [address] Savita Talley, PT TELEPHONE ENCOUNTER 04/07/2025 10:00 AM CDT Home Care Visit [address] [address] Opal Becker, LUPE SN - HOME VISIT 04/04/2025 9:00 AM CDT Home Care Visit [address] [address] Opal Becker, LUPE SN - OASIS START OF CARE 04/04/2025 Plan of Care Documentation [address] [address] 03/23/2025 Nursing Facility [facility] [address] [place] [phone] Dong Grant APRN, CNP 03/06/2025 Nursing Facility [facility] [address] [place] [phone] Kassidy Mackey MD from Last 3 Months Social History Tobacco Use Types Packs/Day Years Used Date Smoking Tobacco: Former Smokeless Tobacco: Never Alcohol Use Standard Drinks/Week Comments No 0 (1 standard drink = 0.6 oz pur e alcohol) Comments No Sex and Gender Information Value Date Recorded Sex Assigned at Not on file Legal Sex Female 12:03 AM CDT Gender Identity Not on file Sexual Orientation Not on file Last Filed Vital Signs Vital Sign Reading Time Taken Comments Blood Pressure 122/65 05/24/2025 12:34 PM CDT Pulse 73 05/24/2025 12:34 PM CDT Temperature 36 C (96.8 F) 05/24/2025 12:34 PM CDT Respiratory Rate 18 05/24/2025 12:34 PM CDT Oxygen Saturation 94% 05/24/2025 12:34 PM CDT Inhaled Oxygen Concentration - - Weight 137.4 kg (303 lb) 04/28/2025 9:31 AM CDT Height 180.3 cm (5' 11) 04/28/2025 9:31 AM CDT Body Mass Index 42.26 04/28/2025 9:31 AM CDT Plan of Treatment Health Maintenance Due Date Last Done Comments Hepatitis C Virus (HCV) Screening 1965 Mammogram 1965 Pap Smear 1986 Cervical Cancer Screening (CCS) 1995 HPV/Cotest 1995 Cologuard 2010 Immunochemical Fecal Occult Blood 2010 Pneumococcal Immunization (50+ years) (2 of 2 - PCV) 2015 08/30/2002 Zoster Immunization (1 of 2) 2015 Respiratory Syncytial Virus (RSV) Immunization (Adult) (1 - Risk 60-74 years 1-dose series) 2025 Influenza Immunization (#1) 05/15/202507/16, 11/09/2023, 07/28/2022, Additional history exists Colonoscopy 03/08/2031 03/08/2021 Colorectal Cancer Screening 03/08/2031 Pneumococcal Immunization Combined Discontinued 08/30/2002 DTaP/Tdap/Td Immunization Discontinued 04/01/2007 TdaP Immunization Completed 04/01/2007 SARS-COV-2 Immunization Completed 08/04/20 24, 01/22/2022, 01/30/2021 Hepatitis B Immunization Aged Out No longer eligible based on patient's age to complete this topic Human Papillomavirus (HPV) Immunization Aged Out No longer eligible based on patient's age to complete this topic Meningococcal Immunization (ACWY) Aged Out No longer eligible based on patient's age to complete this topic Rotavirus Immunization Aged Out No lo nger eligible based on patient's age to complete this topic Procedures Procedure Name Priority Date/Time Associated Diagnosis Comments CBC WITH AUTO DIFFERENTIAL Routine 04/13/2025 5:00 PM CDT Urinary tract infection, site not specified HEMOGLOBIN A1C W/ ESTIMATED GLUCOSE Routine 04/13/2025 5:00 PM CDT Urinary tract infection, site not specified THYROID STIMULATING HORMONE (TSH) Routine 04/13/2025 5:00 PM CDT Urinary tract infection, site not specified CMP (COMPREHENSIVE METABOLIC PANEL) Routine 04/13/2025 5:00 PM CDT Urinary tract infection, site not specified COMPLETE BLOOD COUNT (CBC) WITH DIFF Routine 04/13/2025 5:00 PM CDT Urinary tract infection, site not specified URINALYSIS REFLEX IF INDICATED BY ABNORMAL RESULTS Routine 04/13/2025 5:00 PM CDT Urinary tract infection, site not specified CULTURE, URINE Routine 04/13/2025 5:00 PM CDT Urinary tract infection, site not specified from Last 3 Months Results * (ABNORMAL) HEMOGLOBIN A1C W/ ESTIMATED GLUCOSE (04/13/2025 5:00 PM CDT) HGB-A1C 7.6(H) 4.0 - 6.0 % 04/13/2025 6:32 PM CDT [facility] Est Average Glucose 171.4 mg/dL 04/13/2025 6:32 PM CDT [facility] Blood No Phlebotomy Charged / Unknown 04/13/2025 5:00 PM CDT 04/13/2025 5:58 PM CDT Narrative [facility] - 04/13/2025 6:32 PM CDT HEMOGLOBIN A1C: DIABETIC PATIENTS: WELL-CONTROLLED: 6.2 - 7.0 INTERMEDIATE WELL-CONTROLLED: 7.0 - 9.0 POORLY-CONTROLLED: >9.0 Specimens containing greater than 5% of Hemoglobin F may result in lower than expected % HbA1C results. Kulwinder Jackson MD CHEMISTRY ORDERABLES Final Resu lt [facility] [address] [place] [address] * (ABNORMAL) URINALYSIS REFLEX IF INDICATED BY ABNORMAL RESULTS (04/13/2025 5:00 PM CDT) Pathologist [facility] SPECIFIC GRAVITY 1.010 1.003 - 1.030 04/13/2025 6:31 PM CDT [facility] URINE PH 6.0 5.0 - 9.0 04/13/2025 6:31 PM CDT [facility] WBC ESTERASE 500 /uL(A) Negative 04/13/2025 6:31 PM CDT [facility] NITRITE Negative Negative 04/13/2025 6:31 PM CDT [facility] PROTEIN, RANDOM URINE 100 mg/dL(A) Negative 04/13/2025 6:31 PM CDT [facility] URINE GLUCOSE, QUAL 1000 mg/dL(A) Negative 04/13/2025 6:31 PM CDT [facility] URINE KETONES Negative Negative 04/13/2025 6:31 PM CDT [facility] UROBILINOGEN Normal Normal mg/dL 04/13/2025 6:31 PM CDT [facility] URINE BLOOD 50 /uL(A) Negative mindy/ul 04/13/2025 6:31 PM CDT [facility] URINALYSIS COLOR Yellow 04/13/20 6:31 PM CDT [facility] URINALYSIS CLARITY Very Cloudy 04/13/2025 6:31 PM CDT [facility] WBC (Urine) Packed(A) Negative, 0-5 /hpf 04/13/2025 6:31 PM CDT [facility] URINE RBC'S 3-5(A) Negative, 0-2 /hpf 04/13/2025 6:31 PM CDT [facility] EPITHELIAL CELLS Negative /lpf 04/13/20 25 6:31 PM CDT [facility] BACTERIA, URINE Moderate(A) Negative /hpf 04/13/2025 6:31 PM CDT [facility] URINE YEAST Many Budding Yeast 04/13/2025 6:31 PM CDT [facility] Urine URINE SPECIMEN / Unknown Non-Phlebotomy Collection / Unknown 04/13/2025 5:00 PM CDT 04/13/2025 5:55 PM CDT Kulwinder Jackson MD URINE ORDERABLES Final Result [facility] [address] [place] [address] * (ABNORMAL) CBC WITH AUTO DIFFERENTIAL (04/13/2025 5:00 PM CDT) WBC 8.68 4.00 - 12.00 10(3)/mcL 04/13/2025 6:03 PM CDT [facility] RBC 4.07 3.80 - 5.30 10(6)/mcL 04/13/2025 6:03 PM CDT [facility] HEMOGLOBIN (HGB) 11.4(L) 12.0 - 15.8 g/dL 04/13/2025 6:03 PM CDT [facility] HEMATOCRIT (HCT) 36.5 36.0 - 47.0 % 04/13/2025 6:03 PM CDT [facility] MCV 89.7 82.0 - 96.0 fL 04/13/2025 6:03 PM CDT [facility] MCH 28.0 26.0 - 34.0 pg 04/13/2025 6:03 PM CDT [facility] MCHC 31.2 31.0 - 36.0 g/dL 04/13/2025 6:03 PM CDT [facility] PLATELET COUNT 384 140 - 440 10(3)/mcL 04/13/2025 6:03 PM CDT [facility] RDW 16.3(H) 11.8 - 15.5 % 04/13/2025 6:03 PM CDT [facility] MPV 9.4(L) 9.7 - 12.4 fL 04/13/2025 6:03 PM CDT [facility] NEUTROPHILS 55.9 47.0 - 73.0 % 04/13/2025 6:03 PM CDT [facility] LYMPHOCYTES 26.3 18.0 - 42.0 % 04/13/2025 6:03 PM CDT [facility] MONOCYTES 14.3(H) 4.0 - 12.0 % 04/13/2025 6:03 PM CDT [facility] EOSINOPHILS 1.3 0.0 - 5.0 % 04/13/2025 6:03 PM CDT [facility] BASOPHILS 0.7 0.0 - 1.0 % 04/13/2025 6:03 PM CDT [facility] IMMATURE GRANULOCYTE 1.5(H) 0.0 - 0.4 % 04/13/2025 6:03 PM CDT [facility] Comment:Immature Granulocyte s includes Metamyelocytes, Myelocytes, and Promyelocytes. ABSOLUTE NEUTROPHILS 4.86 1.60 - 7.70 10(3)/mcL 04/13/2025 6:03 PM CDT [facility] ABSOLUTE LYMPHOCYTES 2.28 1.30 - 3.20 10(3)/mcL 04/13/2025 6:03 PM [facility] ABSOLUTE MONOCYTES 1.24(H) 0.20 - 1.00 10(3)/[facility] 04/13/2025 6:03 PM CDT [facility] ABSOLUTE EOSINOPHIL 0.11 0.00 - 0.40 10(3)/[facility] 04/13/2025 6:03 PM CDT [facility] ABSOLUTE BASOPHILS 0.06 0.00 - 0.10 10(3)/[facility] 04/13/2025 6:03 PM [facility] ABSOLUTE IMMATURE GRANULOCYTE 0.13(H) 0.00 - 0.03 10 (3) mcL. 04/13/2025 6:03 PM CDT [facility] NRBC PER 100 WBC 0 04/13/20 6:03 PM CDT [facility] Blood No Phlebotomy Charged / Unknown 04/13/2025 5:00 PM CDT 04/13/2025 5:58 PM CDT Kulwinder Jackson MD HEMATOLOGY ORDERABLES Final Res ult [facility] [address] [place] [address] * (ABNORMAL) THYROID STIMULATING HORMONE (TSH) (04/13/2025 5:00 PM CDT) TSH 9.792(H) 0.300 - 5.000 mIU/L 04/13/2025 6:39 PM CDT [facility] Blood No Phlebotomy Charged / Unknown 04/13/2025 5:00 PM CDT 04/13/2025 5:58 PM CDT Kulwinder Jackson MD CHEMISTRY ORDERABLES Final Resu lt Performing Organization Address City/[facility]/ZIP Co de Phone Number [facility] [address] [place] [address] * CULTURE, URINE (04/13/2025 5:00 PM CDT) CULTURE RESULTS NAKASEOMYCES GLABRATUS 04/16/2025 12:31 PM CDT [facility] Comment: SENSITIVITY NOT PERFORMED Nakaseomyces glabrata, formerly C. glabrata is relatively resistant to fluconazole Urine URINE SPECIMEN / Unknown Non-Phlebotomy Collection / Unknown 04/13/2025 5:00 PM CDT 04/13/2025 5:55 PM CDT Kulwidner Jackson MD MICROBIOLOGY - GENERAL ORDERABL ES Final Result [facility] [address] [place] [address], [place] * (ABNORMAL) CMP (COMPREHENSIVE METABOLIC PANEL) (04/13/2025 5:00 PM CDT) SODIUM 139 136 - 145 mmol/L 04/13/2025 6:20 PM CDT [facility] POTASSIUM 5.5(H) 3.5 - 5.1 mmol/L 04/13/2025 6:20 PM CDT [facility] CHLORIDE 106 98 - 107 mmol/L 04/13/2025 6:20 PM CDT [facility] CO2, VENOUS 24 22 - 30 mmol/L 04/13/2025 6:20 PM CDT [facility] ANION GAP 14.5 <18.0 mmol/L 04/13/2025 6:20 PM CDT [facility] GLUCOSE 219(H) 70 - 99 mg/dL 04/13/2025 6:20 PM CDT [facility] BUN 46(H) 10 - 20 mg/dL 04/13/2025 6:20 PM CDT [facility] CREATININE, BLOOD 1.12(H) 0.60 - 1.00 mg/dL 04/13/2025 6:20 PM CDT [facility] BUN/CREATININE RATIO 41(H) 12 - 20 ratio 04/13/2025 6:20 PM CDT [facility] TOTAL PROTEIN 7.4 6.0 - 8.0 g/dL 04/13/2025 6:20 PM CDT [facility] ALBUMIN 3.0(L) 3.5 - 5.0 g/dL 04/13/2025 6:20 PM CDT [facility] A/G RATIO 0.7(L) 1.0 - 2.2 04/13/2025 6:20 PM CDT [facility] CALCIUM 10.8(H) 8.7 - 10.5 mg/dL 04/13/2025 6:20 PM CDT [facility] T BILI 0.2 0.2 - 1.2 mg/dL 04/13/2025 6:20 PM CDT [facility] SGOT (AST) 9 <43 U/L 04/13/2025 6:20 PM CDT [facility] SGPT (ALT) <6 <56 U/L 04/13/2025 6:20 PM CDT [facility] ALKALINE PHOSPHATASE 88 40 - 150 U/L 04/13/2025 6:20 PM CDT [facility] GFR, ESTIMATED 56(L) >=60 04/13/2025 6:20 PM CDT [facility] Comment: Creatinine Clearance is the preferred criteria for selecting drug dose adjustments in renally impaired patients. The GFR is provided as additional pertinent clinical information. GFR is reported in mL/min/1.73 sq m. Calculation based on the Chronic Kidney Disease Epidemiology Collaboration (CKD- EPI) equation refit without adjustment for race. GFR, EST. 60 >=60 025 6:20 PM CDT [facility] GFR, EST. NONAFRICAN 50(L) >=60 04/13/2025 6:20 PM CDT [facility] Blood No Phlebotomy Charged / Unknown 04/13/2025 5:00 PM CDT 04/13/2025 5:58 PM CDT us Kulwinder Jackson MD CHEMISTRY ORDERABLES Final Resu lt [facility] [address] [place] [address] from Last 3 Months Insurance [place]ICA[place] Advance Directives * Full Code (Latest Code Status on File) Date Activated Date Inactivated Comments 04/04/2025 2:25 PM * Full Code Date Activated Date Inactivated Comments 08/28/2024 2:11 PM 04/04/2025 2:25 PM Care Teams Manager Stars Relationship Specialty Start Date End Date Kulwinder Jackson MD [address] [place] [address] PCP - General Internal Medicine 10/11/17
[2025-05-31 16:10] LABS: NT Pro B Type Natriuretic Pept 509 pg/mL (19.9-100)
[2025-05-31 16:31] LABS: Thyroid Stimulating Hormone 10.500 uIU/mL (0.465-4.680)
== END 2025-05-31 15:20 | disposition home or self-care (01) ==
LOC: CHSLAB 15:21
PROVIDERS: PCP Internal Medicine; Visit Provider Internal Medicine
DX: N39.0 Urinary tract infection, site not specified (principal); E11.9 Type 2 diabetes mellitus without complications; I50.9 Heart failure, unspecified; I25.10 Atherosclerotic heart disease of native coronary artery without angina pectoris
CPT/HCPCS: 36415; 80053; 80061; 81001; 83036; 83735; 83880; 84443; 85027; 86140; 87086; 87101; 87186